=== PATIENT | male | born 1955 | race Caucasian/White ===

== ENCOUNTER → 2020-04-23 08:14 | Outpatient (CLI) | payer MEDICARE, SELFPAY ==
--- NOTE | 2020-04-23 08:28 | EKG12_ITS ---
Test Reason : PRE OP Blood Pressure : / mmHG Vent. Rate : 085 BPM Atrial Rate : 085 BPM P-R Int : 114 ms QRS Dur : 104 ms QT Int : 368 ms P-R-T Axes : 078 017 073 degrees QTc Int : 437 ms Normal sinus rhythm Zkzsc-Hmorbegnr-Hjxze Abnormal ECG Confirmed by JAC VIERA, EDD ([id number]), market editor ROSS HOLLOWAY ([id number]) on 04/27/2020 11:04:39 AM Referred By: Brad Vidal Confirmed By:EDD NATHAN MD
[2020-04-23 10:08] LABS: Hematocrit 47.2 % (40-54); Hemoglobin 15.5 g/dL (13.0-16.5); Mean Corp Hgb Conc 32.8 g/dL (32-36); Mean Corpuscular Hgb 30.9 pg (27.0-32.0); Mean Platelet Vol. 10.1 fl (6.2-12.0); Platelet Count 308 K/mm3 (150-450); RBC Distribution Width CV 13.8 % (11.6-14.6); RBC Distribution Width SD 47.7 fl (35.1-43.9); Red Blood Count 5.02 M/mm3 (4.6-6.2); White Blood Count 6.1 K/mm3 (4.4-11.0)
[2020-04-23 10:16] LABS: Anion Gap 3 (5-15); BUN 19 mg/dL (7-18); BUN/Creat Ratio 16.4 RATIO (10-20); Chloride 106 mmol/L (98-107); Creatinine, Serum 1.16 mg/dL (0.70-1.30); EST Glomerular Filtration Rate 67 mL/min (>60); Est Glom Filt Rate - Afr Amer 81 mL/min (>60); Glucose 106 mg/dL (74-106); Potassium 4.1 mmol/L (3.5-5.1); Sodium Level 139 mmol/L (136-145)
== END ==
PROVIDERS: PCP Internal Medicine; Referring Provider Physician Assistant; Visit Provider Physician Assistant
DX: Z01.818 Encounter for other preprocedural examination (principal); Z01.810 Encounter for preprocedural cardiovascular examination; Z11.59 Encounter for screening for other viral diseases
CPT/HCPCS: 36415; 80048; 85027; 87635; 93005; C9803; U0005; U0003

== ENCOUNTER 2020-05-04 08:38 | Day surgery (SDC) | payer MEDICARE, SELFPAY ==
[2020-05-04] MEDS: Epinephrine (1 mg/ml) 1 MG/ML VIAL (06:27)
[2020-05-04] MEDS: Bupiv/Epi 0.5% Mpf 30 ML Vial (06:28)
[2020-05-04 09:09] VITALS: BP 156/90; PULSE 99; RESP 14; TEMP 36.8; O2SAT 100; BMI 28.3
[2020-05-04] MEDS: Lactated Ringers 1,000 ML 100 ML IV (09:20)
[2020-05-04] MEDS: Cefazolin 2 GM in 0.9% Normal Saline 100 ML IV (09:53)
[2020-05-04 10:45] VITALS: BP 103/71; BP 156/90; PULSE 66; RESP 16; TEMP 36.4; O2SAT 98
--- NOTE | 2020-05-04 10:45 | OP.PCM_ITS ---
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 medial meniscectomy and chondroplasty of the PFJ right knee Estimated Blood Loss: minimal Specimen's Removed: none Type of Anesthesia: general ASA Class: 2 Indications: [ ] Patient has failed conservative measures and at this point has elected to undergo the above procedure. Procedure Description: The patient was greeted in the preoperative area. The [right ] knee was marked with surgical marker. Preoperative antibiotics were administered. The patient was then taken to the operating suite and placed in a supine position on operating room table. After adequate anesthesia was obtained and airway was secured a well-padded tourniquet was placed on patient's affected extremity. Leg was then prepped and draped in usual sterile fashion. Surgical timeout was performed and confirmed with all present and surgery was commenced. Standard anteromedial anterolateral portals were made and a 30? arthroscope was then inserted into the knee. The patellofemoral joint revealed diffuse grade 2 chondromalacia of both the patella and the trochlear groove of the femur. An arthroscopic shaver was used to perform a chondroplasty on the patella and trochlear groove. The cartilage was smoothed down and any delaminate pieces of cartilage were removed with the shaver. Attention was now brought to the medial compartment. There was a multilayered, complex flap tear of the posterior horn of the medial meniscus. The medial portion of the tear was flipped into the notch. A combination of straight and angled basket punches were used to perform a partial medial meniscectomy. An arthroscopy shaver was used to remove the meniscal fragments and to smooth and shape the remaining meniscus to a firm and stable rim. The ACL and PCL were probed and noted to be intact. The lateral compartment was without pathology. At this point all instruments were removed. Arthroscopic portals were closed in a standard fashion. 30 cc of 0.5% Marcaine was then injected into the knee. Well-padded nonadherent dressing was applied and secured with an Von wrap. The patient was taken to the recovery room in stable condition. Type of Anesthesia:: General Anesthesiologist: Yash Calzada - Admit VTE Documentation VTE Present on Admission: No VTE Mechan Device Prophylaxis: SCD's, Thigh High MAXIMINO Hose VTE Pharm Prophylaxis ordered?: No Reason prophylaxis not ordered:: Treatment Not Indicated
[2020-05-04 11:00] VITALS: BP 103/80; BP 156/90; PULSE 66; RESP 16; O2SAT 100
[2020-05-04 11:15] VITALS: BP 132/80; BP 156/90; PULSE 82; RESP 16; TEMP 36.6; O2SAT 100
[2020-05-04 12:53] VITALS: BP 153/89; BP 156/90; PULSE 87; RESP 18; TEMP 36.5; O2SAT 99
== END 2020-05-04 12:54 | disposition home or self-care (01) ==
LOC: SDC 08:38 → AC 08:38
PROVIDERS: PCP Internal Medicine; Referring Provider Orthopaedic Surgery; Visit Provider Orthopaedic Surgery
PROC: (CPT 29870; principal; 2020-05-04 10:00)
DX: S83.231A Complex tear of medial meniscus, current injury, right knee, initial encounter (principal); M23.91 Unspecified internal derangement of right knee; M22.41 Chondromalacia patellae, right knee; M17.11 Unilateral primary osteoarthritis, right knee; X58.XXXA Exposure to other specified factors, initial encounter; Y93.9 Activity, unspecified; Y92.9 Unspecified place or not applicable; Y99.9 Unspecified external cause status; Z20.822 Contact with and (suspected) exposure to COVID-19; E78.00 Pure hypercholesterolemia, unspecified; E07.9 Disorder of thyroid, unspecified; E66.3 Overweight; Z68.28 Body mass index [BMI] 28.0-28.9, adult; Z79.890 Hormone replacement therapy; Z79.899 Other long term (current) drug therapy; Z87.891 Personal history of nicotine dependence
CPT/HCPCS: 29881; 87426; C9803; J7120; J2405

== ENCOUNTER 2020-06-27 06:12 | Emergency (ER) | payer MEDICARE, SELFPAY ==
[2020-06-27 06:13] VITALS: BP 147/99; PULSE 90; RESP 18; TEMP 36.3; O2SAT 97; BMI 27.6
--- NOTE | 2020-06-27 06:22 | CT_ITS ---
STUDY: CT LUMBAR SPINE WITHOUT CONTRAST REASON FOR EXAM: Male, 65 years old. low back pain RADIATION DOSAGE (If Supplied By Facility): CTDIvol = ( 14.99 ) mGy, DLP = ( 454.47 ) mGycm TECHNIQUE: The patient was scanned in a multi detector CT scanner. High resolution transaxial imaging was performed. Images were obtained from T12 to S1. Sagittal and coronal images were reconstructed. Individualized dose optimization techniques were used for this CT. COMPARISON: None FINDINGS: Normal lumbar lordosis. There is no substantial scoliosis. Normal vertebrae of the lumbar spine. L1-2: Normal endplates. Normal disc height and morphology. Normal bilateral facet joints. Normal central canal and bilateral lateral recesses. Normal bilateral intervertebral neural foramina. L2-3: Normal endplates. Normal disc height and morphology. Normal bilateral facet joints. Normal central canal and bilateral lateral recesses. Normal bilateral intervertebral neural foramina. L3-4: Mild bilateral facet hypertrophy and ligament flavum hypertrophy. Mild broad disc protrusion produces mild spinal stenosis and mild bilateral neural foraminal stenosis. L4-5: Mild bilateral facet hypertrophy and ligament flavum hypertrophy. Mild broad disc protrusion produces mild spinal stenosis and mild bilateral neural foraminal stenosis. L5-S1: Mild broad disc protrusion produces mild spinal stenosis and mild bilateral neural foraminal stenosis. Normal visualized paraspinous soft tissue structures. CT/Spine Lumbar without Contrast IMPRESSION: Multilevel degenerative changes, as described above. Electronically Signed: Josué Benitez MD at 7:27 EDT Tel , Service support ,
--- NOTE | 2020-06-27 06:23 | ED.VISSUMM ---
- ER Visit Summary Date of Service: 06/27/20 Chief Complaint: Back pain History of Present Illness: The patient is a 65 M who has had back pain for a week. He tried lifting a steel door and after that started having low back pain. Is worse with movement. The pain radiates down his left leg. He denies any bowel or bladder retention or incontinence. He is on prednisone and tramadol currently. He got these from an urgent care yesterday. He denies fevers or history of back surgeries. However, he does have a history of previous back pain. He came in this morning because he feels like his left thigh is getting weaker. Physical Examination: Vital signs reviewed. HEENT exam unremarkable. Heart is regular rate and rhythm without murmurs. Lungs are clear to auscultation. Abdomen is soft and nontender. His back is tender in the lower lumbar region. Extremities reveal no edema. Skin exam normal. Neurologic exam shows equal strength bilaterally but he does ambulate with a limp on the left side. His left patellar reflex is slightly diminished as compared to the right. Test Results: CT scan of the lumbar spine is pending Emergency Department Course and Treatment: Patient was given morphine for pain control. He will be signed out to the oncoming physician for further evaluation Treatment Plan: [] Disposition: Pending Impression: Lumbar strain This note was generated with [employer] dictation software. It may contain incorrect words, spelling, and punctuation that were not noted in review of the chart prior to signing ED Disposition - Plan for ED Patient: Referrals: Sherif Wang MD [Primary Care Provider] -
[2020-06-27] MEDS: morphine 8 MG/ML Syringe IM (06:26)
--- NOTE | 2020-06-27 08:03 | MRI_ITS ---
STUDY: MRI LUMBAR SPINE WITHOUT CONTRAST REASON FOR EXAM: Male, 65 years old. Acute L3 radiculopathy with neuro deficit TECHNIQUE: Standardized fat and water weighted pulse sequences were obtained in the sagittal and axial planes. COMPARISON: CT earlier today FINDINGS: T12-L1: Normal endplates. Normal disc height, hydration and morphology. Normal bilateral facet joints. Normal central canal and bilateral lateral recesses. Normal bilateral intervertebral neural foramina. Normal lumbar lordosis. There is no substantial scoliosis. Normal conus medullaris that terminates at the T12/L1. L1-2: Mild bilobed disc protrusion produces mild spinal stenosis and mild bilateral neural foraminal stenosis. L2-3: Mild bilobed disc protrusion produces mild spinal stenosis and mild bilateral neural foraminal stenosis. L3-4: Mild bilateral facet hypertrophy and ligament flavum hypertrophy. Mild broad disc protrusion produces mild spinal stenosis and mild bilateral neural foraminal stenosis. L4-5: Mild bilateral facet hypertrophy and ligament flavum hypertrophy. Mild broad disc protrusion produces mild spinal stenosis and mild bilateral neural foraminal stenosis. L5-S1: Mild broad disc protrusion produces mild spinal stenosis and mild bilateral neural foraminal stenosis. Normal visualized sacral ala. Normal visualized paraspinous soft tissue structures. MRI/Spine Lumbar (Routine) IMPRESSION: Multilevel degenerative changes, as described above. Electronically Signed: Josué Benitez MD at 11:30 EDT Tel , Service support ,
[2020-06-27 11:19] VITALS: RESP 18
--- NOTE | 2020-06-27 12:34 | TELEMED_ITS ---
[facility] has confirmed receipt of a request for visit. This document confirms receipt of the order initiating the consult. To find the results of the consultation, please view the patient's reports for the scanned Telemed Consult.
[2020-06-27 12:43] VITALS: BP 109/87; PULSE 103; RESP 18; O2SAT 97
--- NOTE | 2020-06-27 13:14 | ED.VISSUMM ---
- ER Visit Summary Date of Service: 06/27/20 Chief Complaint: [] History of Present Illness: The patient is a 65 M [] Physical Examination: [] Test Results: [] Emergency Department Course and Treatment: [] Treatment Plan: [] Disposition: [] Impression: [] This note was generated with [employer] dictation software. It may contain incorrect words, spelling, and punctuation that were not noted in review of the chart prior to signing ED Disposition - Plan for ED Patient: Disposition: Home or Assisted Living Diagnosis: Lumbosacral radiculopathy at L4 Prescriptions: Naproxen [Naprosyn] 500 mg PO BID #14 tablet Transmission Status: Pending to [id number] Oxycodone HCl/Acetaminophen [Percocet 5/325] 1 tablet PO Q6H PRN PRN 5 Days #20 tablet PRN Reason: Back pain Transmission Status: Sent to [id number] Referrals: Sherif Wang MD [Primary Care Provider] - 5-7 Days Additional Instructions: 1. Continue take prednisone until gone 2. Take Naprosyn 1 tablet twice a day for the next 7 days 3. Take Percocet for severe pain. 4. If you have loss of bowel control, unable to urinate or numbness in your buttocks region return to the emergency department immediately 5. If you develop increased weakness follow-up with your doctor or return to the emergency department
--- NOTE | 2020-06-27 13:18 | ED.DCSUM_ITS ---
- ER Visit Summary Date of Service: 06/27/20 Chief Complaint: [] History of Present Illness: The patient is a 65 M [] Physical Examination: [] Test Results: [] Emergency Department Course and Treatment: [] Treatment Plan: [] Disposition: [] Impression: [] This note was generated with [employer] dictation software. It may contain incorrect words, spelling, and punctuation that were not noted in review of the chart prior to signing ED Disposition - Plan for ED Patient: Disposition: Home or Assisted Living Diagnosis: Lumbosacral radiculopathy at L4 Instructions: ED Back Pain (Acute or Chronic) Prescriptions: Naproxen [Naprosyn] 500 mg PO BID #14 tablet Transmission Status: Received by [id number] Oxycodone HCl/Acetaminophen [Percocet 5/325] 1 tablet PO Q6H PRN PRN 5 Days #20 tab PRN Reason: Back pain Transmission Status: Received by [id number] Referrals: Sherif Wang MD [Primary Care Provider] - 5-7 Days Additional Instructions: 1. Continue take prednisone until gone 2. Take Naprosyn 1 tablet twice a day for the next 7 days 3. Take Percocet for severe pain. 4. If you have loss of bowel control, unable to urinate or numbness in your buttocks region return to the emergency department immediately 5. If you develop increased weakness follow-up with your doctor or return to the emergency department
== END 2020-06-27 13:27 | disposition home or self-care (01) ==
PROVIDERS: Emergency Provider Emergency Medicine; PCP Internal Medicine
DX: M51.16 Intervertebral disc disorders with radiculopathy, lumbar region (principal); M48.061 Spinal stenosis, lumbar region without neurogenic claudication; S39.012A Strain of muscle, fascia and tendon of lower back, initial encounter; X58.XXXA Exposure to other specified factors, initial encounter; Y93.9 Activity, unspecified; Y92.9 Unspecified place or not applicable; Y99.9 Unspecified external cause status; E03.9 Hypothyroidism, unspecified; Z79.899 Other long term (current) drug therapy
CPT/HCPCS: 72131; 72148; 96372; 99282

== ENCOUNTER 2023-02-03 03:06 | Inpatient (IN) | payer MEDICARE, SELFPAY ==
[2023-02-03] VITALS (13 sets, daily range): BP systolic 127–173; BP diastolic 74–145; PULSE 73–94; RESP 15–22; TEMP 36.3–36.6; O2SAT 95–99; BMI 27.3; BMI 26.9
--- NOTE | 2023-02-03 03:18 | EKG12_ITS ---
Test Reason : CP Blood Pressure : / mmHG Vent. Rate : 094 BPM Atrial Rate : 094 BPM P-R Int : 140 ms QRS Dur : 112 ms QT Int : 384 ms P-R-T Axes : 071 -14 107 degrees QTc Int : 480 ms Normal sinus rhythm Pqqgz-Wakirptlu-Qunwm Abnormal ECG Confirmed by JAC VIERA, EDD ([id number]), newspaper editor managing VIRGILIO MCGILL ([id number]) on 02/03/2023 9:38:37 AM Referred By: Yash Skelton Confirmed By:EDD NATHAN MD
--- NOTE | 2023-02-03 03:19 | EDS_ITS ---
HPI History of Present Illness Chief Complaint: Chest Pain Informant: patient and spouse/S.O. Narrative Narrative: Patient presents with complaint of chest pain. Patient is not having any pain now. He went for a walk last evening at about 5 or 5:30 in the evening. He does this almost every day. He normally has no symptoms. He walked about 4 miles. He states he had a discomfort in the middle of his chest the whole time. It is hard for him to describe the exact feeling. It did not radiate. He did not have nausea vomiting diaphoresis lightheadedness or shortness of breath with it. It lasted for the walk and when he got home it lasted for maybe another 10 minutes and then went away when he rested. He felt fine until about an hour ago when he woke up with the same feeling in his chest. This time it sounds like he got a little diaphoretic but he states that is just because he was anxious. He still did not have nausea vomiting lightheadedness or shortness of breath. Again, he is not having symptoms now. His last stress test was likely approxi mately 2014. He has had no recent travel surgery immobilization personal or family history of DVT or PE. He did go to [place] but that was about 4 to 5 months ago. He is a smoker. He has high cholesterol. He states sometimes his blood pressure is high but he is not on meds for it. He does have a brother that had a heart attack at the age of 43. Patient is not diabetic. [facility] Medical History WPW (Kqvmf-Tepxsgjut-Wkrcf syndrome) Home Medications levothyroxine 125 mcg tablet 150 mcg PO DAILY 08/12/14 [History Last Taken 05/04/20 06:30] atorvastatin 10 mg tablet 10 mg PO QHS 05/01/20 [History Last Taken Unknown] Allergy/AdvReac Type Severity Reaction Status Date / Time No Known Allergies Allergy Verified 05/04/20 09:08 Social History Smoking Status: Current every day smoker tobacco type: cigarettes ROS ROS ED ROS Narrative A complete review of systems was performed and is negative except as documented in the history of present illness. Some specific details below. Constitutional: No recent fevers or chills. No malaise. ENT: No difficulty swallowing. No swelling. No pain. No reflux symptoms. No history of GERD. CV: See history of present illness. Respiratory: Denies any pulmonary symptoms with this. GI: No abdominal pain. No nausea vomiting at any time and no diarrhea. No recent blood in stool. : No frequency dysuria or hematuria. Musculoskeletal: No recent trauma. No pains. No swelling. No pain at all in his back at any time. Skin: No rash. He did feel he got a little diaphoretic the second episode but that has resolved. He did not get diaphoretic with the first episode when he was walking. Neuro: No weakness or numbness. No paresthesias. Endocrine: No polyuria or polydipsia. EXAM Physical Exam Narrative Exam Narrative: CONSTITUTIONAL: Patient is nontoxic in appearance. The patient looks comfortable. Work of breathing looks normal. He is not diaphoretic now. HEENT: No notable trauma. Mucous membranes moist. EYES: No conjunctival injection. No pallor noted. NECK:No JVD. CARDIOVASCULAR: Regular rate. Regular rhythm. No notable murmur. No JVD. Rate is normal at about 90 on the monitor. No not seeing ectopy. RESPIRATORY: No respiratory distress. Breathing is unlabored. No wheezes. No rhonchi. No rales. No pain with a deep breath. No chest wall tenderness. GASTROINTESTINAL: Not distended. Bowel sounds are normal. No tenderness. GENITOURINARY: No CVA tenderness. MUSCULOSKELETAL: Atraumatic. No peripheral edema. No cord. No tenderness along the deep venous system. NEUROLOGICAL: Patient is alert and appropriate. No focal deficit noted. SKIN: No noted rashes. No diaphoresis noted at this time. PSYCHIATRIC: Patient actually seems quite calm and relaxed. He is is not toxic in appearance. He states he feels perfectly fine now. Const Vital Signs: 02/03/23 03:06 02/03/23 03:06 02/03/23 03:20 Temperature 97.5 F L Temperature Source Temporal Pulse Rate 94 Respiratory Rate 15 Respiratory Effort Normal Non-Labored Blood Pressure 164/145 H Blood Pressure Mean 151 Pulse Ox 98 98 Oxygen Delivery Method Room Air Room Air 02/03/23 03:23 02/03/23 04:51 Temperature 97.6 F L Temperature Source Pulse Rate 79 Respiratory Rate 16 Respiratory Effort Blood Pressure 173/100 H 135/91 H Blood Pressure Mean 124 105 Pulse Ox 97 Oxygen Delivery Method Heart Score History: Slightly/Non-Suspicious ECG: Nonspecific Repolarization Age: >/= 65 years Risk Factors: >/= 3 Risk Factors or History of CAD Score: 5 MDM MDM MDM Narrative Medical decision making narrative: My independent interpretation of the patient's single view AP chest x-ray shows no infiltrate or pneumothorax. No cardiomegaly. Paravertebral aortic stripe is normal. Final reading is pending. Patient CBC shows no marked abnormalities. Platelets were normal. Patient's electrolytes show minimal elevation of chloride at 109. No other significant abnormalities. Glucose is minimally up at 112. Patient's first troponin is elevated 834. I have checked the patient again. He is still totally asymptomatic. Without treatment his blood pressure has come down to 135/91. He never had tearing or ripping pain severe pain or pain in his back. Final reading of x-ray shows no acute process. I did discuss the case with practice nurse, Dr. Alonzo. We will initiate heparin at this time since he does have some change in his EKG from the past, history of chest pain and elevated troponin. I also discussed the case with hospitalist and patient will be admitted. Lab Data Attestation: I reviewed the patient's lab results. Labs: Laboratory Results - last 24 hr 02/03/23 03:15 WBC 9.2 RBC 5.13 Hgb 15.5 Hct 47.1 MCV 91.8 MCH 30.2 MCHC 32.9 RDW Std Deviation 46.3 H RDW Coeff of Mikayla 13.6 Plt Count 323 MPV 9.9 Immature Gran % (Auto) 0.400 Neut % (Auto) 41.8 L Lymph % (Auto) 43.5 H Rowan % (Auto) 8.3 Eos % (Auto) 4.5 Baso % (Auto) 1.5 H Absolute Neuts (auto) 3.8 Absolute Lymphs (auto) 4.00 Nucleated RBC % 0 Sodium 142 Potassium 3.7 Chloride 109 H Carbon Dioxide 25.0 Anion Gap 8 BUN 16 Creatinine 1.01 Estim Creat Clear Calc 80.26 Est GFR (MDRD) Af Amer 94 Est GFR (MDRD) Non-Af 78 BUN/Creatinine Ratio 15.8 Glucose 112 H Calcium 9.3 Troponin I High Sens 834 H* Radiography Diagnostic Testing: Clinical Impression(s) from Imaging Studies Chest X-Ray 02/03/23 03:22 IMPRESSION: No significant interval change. No radiographic evidence of acute cardiopulmonary disease. Electronically Signed: Shoaib Chambers MD at 4:01 EST , EKG Initial EKG: Comments: My independent interpretation of the patient's EKG does show a normal sinus rhythm with overall rate of 94. No ventricular ectopy. 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 He has had this since he was quite young. He has some secondary ST changes but he looks to have some more ST depression in the lateral leads than he had on his EKG of 23 April 2020. I do not see signs of ST elevation meeting STEMI criteria. Despite the WPW, the computer is reading as AR interval as normal but it does appear somewhat shorter. QRS duration is normal and his QTc is a bit long. He was asymptomatic when this EKG was done. Management Discussion w/another healthcare provider: Hospitalist and Shingles Roofer Discharge Plan Dx/Rx/DC Orders Clinical Impression: Non-ST elevation WI (NSTEMI), History of high cholesterol, History of Cnzns-Tcikowfjm-Geyhf (WPW) syndrome, History of smoking, Acute electroc ardiogram changes, Chest pain, Elevated troponin Disposition Disposition: Acute Care Hospital [facility]
[2023-02-03] MEDS: Aspirin 81 MG TAB.CHEW 324 MG PO (03:22)
--- NOTE | 2023-02-03 03:22 | RAD_ITS ---
EXAM: XR CHEST, 1 VIEW CLINICAL INDICATION: chest pain TECHNIQUE: Frontal view of the chest. COMPARISON: Previous chest radiographs of 08/12/2014. FINDINGS: LUNGS AND PLEURAL SPACES: Unremarkable. No consolidation or edema. No pneumothorax. No effusion. HEART: Unremarkable. Cardiac silhouette not enlarged. Normal pulmonary vasculature. MEDIASTINUM: Thoracic aorta is mildly elongated. No mediastinal widening. Trachea is midline. BONES/JOINTS: No acute osseous abnormality. SOFT TISSUES: Unremarkable. RAD/Chest 1 View (Portable) IMPRESSION: No significant interval change. No radiographic evidence of acute cardiopulmonary disease. Electronically Signed: Shoaib Chambers MD at 4:01 EST ,
[2023-02-03 03:29] LABS: Absolute Neutrophil Count 3.8 X10^3/uL (2.0-7.7); Basophil# 0.14 X10^3/uL; Basophil% 1.5 % (0-1); Eosinophil# 0.41 X10^3/uL; Eosinophils% 4.5 % (0-5); Hematocrit 47.1 % (40-54); Hemoglobin 15.5 g/dL (13.0-16.5); Lymphocyte % 43.5 % (19-41); Mean Corp Hgb Conc 32.9 g/dL (32-36); Mean Corpuscular Hgb 30.2 pg (27.0-32.0); Mean Corpuscular Volume 91.8 fL (80-94); Mean Platelet Vol. 9.9 fl (6.2-12.0); Monocyte# 0.76 X10^3/uL; Monocyte% 8.3 % (0-10); NRBC Flagged by Analyzer 0 % (0-5); Neutrophil # 3.84 X10^3/uL (2.7-7.7); Neutrophil % 41.8 % (47-70); POSITIVE MORPHOLOGY YES; Platelet Count 323 K/mm3 (150-450); RBC Distribution Width CV 13.6 % (11.6-14.6); RBC Distribution Width SD 46.3 fl (35.1-43.9); Red Blood Count 5.13 M/mm3 (4.6-6.2); White Blood Count 9.2 K/mm3 (4.4-11.0)
[2023-02-03 03:50] LABS: Anion Gap 8 (5-15); BUN 16 mg/dL (7-18); BUN/Creat Ratio 15.8 RATIO (10-20); Calcium,Total 9.3 mg/dL (8.5-10.1); Chloride 109 mmol/L (98-107); Creatinine, Serum 1.01 mg/dL (0.70-1.30); EST Glomerular Filtration Rate 78 mL/min (>60); Est Glom Filt Rate - Afr Amer 94 mL/min (>60); Estimated Creatinine Clearance 80.26 ml/min; Glucose 112 mg/dL (74-106); Potassium 3.7 mmol/L (3.5-5.1); Sodium Level 142 mmol/L (136-145); Troponin-I HS (w/2H Reflex) 834 pg/mL (3.0-78.0)
[2023-02-03 04:48] LABS: Differential Indicated SCAN CRITERIA MET
[2023-02-03 05:04] LABS: International Normalized Ratio 0.9; Prothrombin Time (Protime)PT. 12.6 SECONDS (11.7-14.9)
[2023-02-03 05:05] LABS: Partial Thromboplast Time 29.9 Seconds (24.1-36.2)
[2023-02-03] MEDS: Heparin Injection (Vial) 5,000 UNIT/ML VIAL 4000 UNIT IV (05:20)
[2023-02-03] MEDS: HEPARIN/D5w 25,000 UNITS 25,000 UNITS/250 ML IV.SOLN. 10 UNITS CONT INF (05:20)
[2023-02-03 05:22] LABS: Reflex Troponin-HS? (from REC) Y
--- NOTE | 2023-02-03 05:23 | EKG12_ITS ---
Test Reason : CP ADMIT Blood Pressure : / mmHG Vent. Rate : 083 BPM Atrial Rate : 083 BPM P-R Int : 124 ms QRS Dur : 120 ms QT Int : 400 ms P-R-T Axes : 073 -22 112 degrees QTc Int : 470 ms Normal sinus rhythm Ventricular pre-excitation, WPW pattern type A Abnormal ECG When compared with ECG of 03-FEB-2023 03:08, MANUAL COMPARISON REQUIRED, DATA IS UNCONFIRMED Confirmed by JAC VIERA, EDD ([id number]), school photograph editor ROSS HOLLOWAY ([id number]) on 02/03/2023 1:58:35 PM Referred By: Yash Skelton Confirmed By:EDD NATHAN MD
[2023-02-03 05:24] LABS: Reactive Lymphocyte 1+
--- NOTE | 2023-02-03 05:25 | HP.PCM.HOS_ITS ---
HPI - General General Date of Service: 02/03/23 Chief Complaint: chest pain HPI Narrative ROSELINE KINCAID, is a 67 M who presents with chest pain. Began yesterday when he was walking needed. Came back this morning he was bed. It was midsternal and had some mid back pain. No associated diaphoresis nor shortness of breath. Has never experienced anything like this before. In the emergency room, patient had an EKG which showed showed ST depressions in the anterior lateral leads. He does have known Cakwk-Nyfjezlwl-Nivkw. Years. He has previously underwent a stress test several years ago that was normal. [facility] Medical History (Updated 02/03/23 @ 05:[address] Yash Skelton DO) History of high cholesterol History of smoking Hypothyroidism WPW (Kdqtk-Vgkewdcrm-Fbfvk syndrome) Home Medications levothyroxine 125 mcg tablet 150 mcg PO DAILY 08/12/14 [History Last Taken 05/04/20 06:30] atorvastatin 10 mg tablet 10 mg PO QHS 05/01/20 [History Last Taken Unknown] Allergy/AdvReac Type Severity Reaction Status Date / Time No Known Allergies Allergy Verified 05/04/20 09:08 Family History (Updated 02/03/23 @ 05:[address] Yash Skelton DO) Brother CAD (coronary artery disease) Social History Smoking Status: Current every day smoker tobacco type: cigarettes Vital Signs Vital Signs Vital Signs: 02/03/23 03:06 02/03/23 03:06 02/03/23 03:20 Temperature 36.4 C L Temperature Source Temporal Pulse Rate 94 Respiratory Rate 15 Respiratory Effort Normal Non-Labored Blood Pressure 164/145 H Blood Pressure Mean 151 Pulse Ox 98 98 Oxygen Delivery Method Room Air Room Air 02/03/23 03:23 02/03/23 04:51 Temperature 36.4 C L Temperature Source Pulse Rate 79 Respiratory Rate 16 Respiratory Effort Blood Pressure 173/100 H 135/91 H Blood Pressure Mean 124 105 Pulse Ox 97 Oxygen Delivery Method Weight Weight: 96.4 kg Body Mass Index (BMI) 27.3 Physical Exam Narrative - Physical Exam General: Alert, Oriented x3, Cooperative HEENT: Atraumatic, PERRLA, EOMI, Normocephalic Oral: Moist Mucosa, No Gingival or Mucosal Lesions/ Ulcerations Neck: Supple, No JVD, Negative Carotid Bruits Lungs: Clear to auscultation, Normal air movement Cardiovascular: Regular rate, Normal S1, Normal S2, No murmurs Abdomen: Bowel Sounds Present, Soft, Non Tender, Non-Distended, No Hepato-splenomegaly Extremities: No clubbing, No cyanosis, No edema, Capillary Refill Less than 3 Seconds Skin: No rashes, No breakdown Musculoskeletal: No Tenderness to Palpation of Joints or Extremities Neurological: Neuro grossly intact Psych/Mental Status: Normal Affect, Appropriate Results Lab / Micro Data Attestation: I reviewed the patient's lab results. 02/03/23 03:15 02/03/23 03:15 Labs: Laboratory Results - last 24 hr 02/03/23 03:15: WBC 9.2, RBC 5.13, Hgb 15.5, Hct 47.1, MCV 91.8, MCH 30.2, MCHC 32.9, RDW Std Deviation 46.3 H, RDW Coeff of Mikayla 13.6, Plt Count 323, MPV 9.9, Immature Gran % (Auto) 0.400, Neut % (Auto) 41.8 L, Lymph % (Auto) 43.5 H, [place] % (Auto) 8.3, Eos % (Auto) 4.5, Baso % (Auto) 1.5 H, Absolute Neuts (auto) 3.8, Absolute Lymphs (auto) 4.00, Nucleated RBC % 0, Reactive Lymphocytes 1+, PT 12 .6, INR 0.9, APTT 29.9, Sodium 142, Potassium 3.7, Chloride 109 H, Carbon Donaldo xide 25.0, Anion Gap 8, BUN 16, Creatinine 1.01, Estim Creat Clear Calc 80.26, Est GFR (MDRD) Af Amer 94, Est GFR (MDRD) Non-Af 78, BUN/Creatinine Ratio 15.8, Glucose 112 H, Calcium 9.3, Troponin I High Sens 834 H* EKG Initial EKG: Attestation: I personally reviewed and interpreted this EKG as follows: Prior EKG tracings: available for review EKG Rhythm Intrepretation: Sinus Rhythm (Mvbzy-Rumwpqvty-Fhfjr with anterior lateral ST depressions. This is a change from on April 23, 2020.) Imagaing Radiology Impression Chest X-Ray 12/01/23 03:22 IMPRESSION: No significant interval change. No radiographic evidence of acute cardiopulmonary disease. Electronically Signed: Shoaib Chambers MD at 4:01 EST , Assessment & Plan Assessment/Plan (1) Non-ST elevation CT (NSTEMI): PLAN: Patient had exertional chest pain yesterday chest pain at rest this morning. He is currently pain-free at this time. Troponins were elevated at 834. Emergency room physician spoke with Dr. Alonzo, who will see the patient in consultation. Patient was started on heparin drip. Patient received aspirin in the emergency room. Continue with aspirin floor. Check fasting lipid panel. Cycle troponins. Check 2D echocardiogram. Cardiology consultation. Currently n.p.o. anticipation the patient catheterization. PLAN: Plan Chronic conditions * Hypothyroidism: Continue with levothyroxine * Ujyvj-Upikbniln-Plzsg: This is chronic. He has been previously evaluated by cardiology in years past. Caution with verapamil, adenosine, beta-blockers, amiodarone and digoxin. Patient does note that he does get palpitations periodically. * Tobacco abuse: Advised cessation. VTE prophylaxis: Not indicated as patient is anticoagulated. Charges/Coding Visit Charges Inpatient E&M: 85588 Init Hosp L3
--- NOTE | 2023-02-03 05:44 | ECHOCS_ITS ---
Reason For Study: Chest Pain/ NSTEMI Procedure This was a 2D Doppler, Color Flow transthoracic echocardiogram. Contrast injection was performed. Echo done post heart cath. Exam performed portable in ICU/CCU. Left Ventricle Normal LV size. Left ventricular systolic function is normal. The estimated ejection fraction is 60 %. Stage 1 diastolic dysfunction. No regional wall motion abnormalities noted. Right Ventricle Normal RV size. Normal systolic function. Atria Normal left atrium. Normal right atrium. Mitral Valve Mitral valve not well visualized. Tricuspid Valve The tricuspid valve is not well visualized. Aortic Valve The aortic valve is not well visualized. Pulmonic Valve The pulmonic valve is not well visualized. Great Vessels Normal aortic root. The pulmonary artery is normal size. Normal inferior vena cava. Pericardium/Pleural No pericardial effusion. Medication Diluted definity 2ml given slow IV push to enhance endocardial definition. MMode/2D Measurements & Calculations LVIDd: 4.4 cm IVSd: 0.81 cm Ao root diam: 3.5 cm LVIDs: 3.0 cm LVPWd: 0.93 cm LA dimension: 4.2 cm RVDd: 4.1 cm FS: 31.8 % LAV(MOD-bp): 65.2 ml LVAd ap4: 39.3 cm2 SV(MOD-sp4): 80.7 ml LAV(MOD-bp) Indexed: 29.3 ml/m2 LVLd ap4: 9.7 cm LAV(MOD-sp2): 65.4 ml EDV(MOD-sp4): 127.5 ml LAV(MOD-sp4): 53.8 ml EDV(sp4-el): 134.7 ml LVAs ap4: 20.1 cm2 LVLs ap4: 7.2 cm ESV(MOD-sp4): 46.8 ml ESV(sp4-el): 47.9 ml EF(MOD-sp4): 63.3 % EF(sp4-el): 64.5 % SV(sp4-el): 86.8 ml LA A4 area: 17.6 cm2 RA A4 area: 15.4 cm2 TAPSE: 1.3 cm Time Measurements MV dec time: 0.20 sec Doppler Measurements & Calculations MV E max alfonso: 71.7 cm/sec Lat Peak E' Alfonso: 6.3 cm/sec Med Peak E' Alfonso: 8.4 cm/sec MV A max alfonso: 86.5 cm/sec E/E' lat: 11.3 E/E' med: 8.5 MV E/A: 0.83 MV V2 max: 105.1 cm/sec MV P1/2t max alfonso: 91.8 cm/sec Ao V2 max: 121.2 cm/sec MV max P.4 mmHg MV P1/2t: 70.2 msec Ao max P.9 mmHg MV V2 mean: 55.2 cm/sec MV mean P.5 mmHg MV dec slope: 383.2 cm/sec2 MV V2 VTI: 24.8 cm MVA(P1/2t): 3.1 cm2 LV V1 max: 100.2 cm/sec PA V2 max: 73.5 cm/sec LV V1 max P.0 mmHg ECHO/Echo Complete W/ Contrast Interpretation Summary Normal LV size. Left ventricular systolic function is normal. The estimated ejection fraction is 60 %. Stage 1 diastolic dysfunction. Contrast injection was performed. Ordering Physician: Yash Skelton Referring Physician: Sherif Wang M.D. Performed By: Anson Adan RCS
[2023-02-03 05:58] LABS: Troponin-I HS 710 pg/mL (3.0-78.0)
[2023-02-03] MEDS: Levothyroxine 150 MCG Tablet PO (06:10)
[2023-02-03] MEDS: 0.9% Saline Lock 10 ML Syringe IV (06:10)
[2023-02-03] MEDS: Aspirin E.C. 81 MG Tablet PO (06:10)
[2023-02-03] MEDS: 0.9% Normal Saline (1000mL) 1,000 ML 15 ML IV (07:00)
[2023-02-03 07:01] LABS: Cholesterol 146 mg/dL (200); High Density Lipoprotein 42 mg/dL; Triglycerides 66 mg/dL; Very Low Density Lipoprotein 13 mg/dL (5-40)
--- NOTE | 2023-02-03 07:25 | PCM.PN.HOSP ---
Reason for Visit Reason for Visit: Chest pain Subjective Subjective Patient is a 67-year-old white male who presented to the emergency department at [facility] early this morning complaining of chest pain that began the day prior to presentation. He noticed that it started when he was walking. It came back this morning while he was in bed and was described as midsternal with some radiation to his mid back. He had no associated diaphoresis or shortness of breath and had never experienced anything like this previously. Vital signs on presentation showed temperature of 36.4, heart rate was 94, respiratory was 15, blood pressure was 164/145 with a repeat of 135/91 and his pulse ox was 98% on room air. His CBC was unremarkable. Coags were unremarkable. Chemistry panel was unremarkable. His initial troponin was elevated 834 with a repeat of 710. Lipids were obtained and he had a total cholesterol 146/LDL 91/HDL of 42/triglycerides of 66. EKG demonstrated ST depressions in the anterior and lateral leads and the patient does have a known history of Rzvwh-Brghpayvk-Yfqir disorder. He underwent a stress test several years ago that was found to be unremarkable. He is a current everyday smoker. He was admitted to the medical floor for an NSTEMI and the case was discussed with Dr. Alonzo by the emergency department physician. He will see the patient consultation today. Objective Data Objective Data Vital Signs: Vital Signs Temp Pulse Resp BP Pulse Ox O2 Del Method 97.7 F L 85 15 155/89 H 99 Room Air 02/03/23 05:50 02/03/23 05:50 02/03/23 05:50 02/03/23 05:50 02/03/23 05:50 02/03/23 05:58 Oxygen Delivery Method Room Air Weight: 95.254 kg Body Mass Index (BMI) 26.9 Intake & Output: Intake and Output for Last 24 Hours 02/01/23 02/02/23 02/03/23 23:59 23:59 23:59 Intake Total 16.67 / 16.67 Balance 16.67 / 16.67 Lab / Micro Data 02/03/23 03:15 02/03/23 03:15 Labs: Laboratory Results - last 24 hr 02/03/23 03:15: WBC 9.2, RBC 5.13, Hgb 15.5, Hct 47.1, MCV 91.8, MCH 30.2, MCHC 32.9, RDW Std Deviation 46.3 H, RDW Coeff of Mikayla 13.6, Plt Count 323, MPV 9.9, Immature Gran % (Auto) 0.400, Neut % (Auto) 41.8 L, Lymph % (Auto) 43.5 H, [place] % (Auto) 8.3, Eos % (Auto) 4.5, Baso % (Auto) 1.5 H, Absolute Neuts (auto) 3.8, Absolute Lymphs (auto) 4.00, Nucleated RBC % 0, Reactive Lymphocytes 1+, PT 12.6, INR 0.9, APTT 29.9, Sodium 142, Potassium 3.7, Chloride 109 H, Carbon Dioxide 25.0, Anion Gap 8, BUN 16, Creatinine 1.01, Estim Creat Clear Calc 80.26, Est GFR (MDRD) Af Amer 94, Est GFR (MDRD) Non-Af 78, BUN/Creatinine Ratio 15.8, Glucose 112 H, Calcium 9.3, Troponin I High Sens 834 H* 02/03/23 05:30: Troponin I High Sens 710 H*, Triglycerides 66, Cholesterol 146, LDL Cholesterol 91, VLDL Cholesterol 13, HDL Cholesterol 42 Radiography Diagnostic Testing: Radiology Impression Chest X-Ray 02/03/23 03:22 IMPRESSION: No significant interval change. No radiographic evidence of acute cardiopulmonary disease. Electronically Signed: Shoaib Chambers MD at 4:01 EST Reading Location ID and State: [address] [place] [address] Tel , Service support , Assessment & Plan Assessment/Plan (1) Non-ST elevation [place] (NSTEMI): (2) Chest pain: PLAN: Plan NSTEMI type I -Troponin was greater than 100 on presentation however is slowly trended down -2D echocardiogram is pending -N.p.o. for probable cardiac catheterization today -Continue aspirin -Continue heparin drip -Increase atorvastatin from 10 to 80 mg daily for pleiotropic effects and due to subtherapeutic LDL at 91 -Hold metoprolol for now with history of WPW -Cardiology consult pending Hyperlipidemia -Continue atorvastatin but increase dose from 10 mg nightly to 80 mg nightly for pleiotropic effects and due to subtherapeutic LDL Hypothyroidism -Continue home levothyroxine -Check a.m. TSH History of WPW -Patient has had this for years and has followed with cardiology previously -Avoid adenosine, calcium channel blockers, and beta-blockers for now History of tobacco abuse -Patient is a current everyday smoker -May need nicotine replacement therapy -Monitor -Recommend cessation DVT prophylaxis -Patient is on a heparin drip at this time -Start subcu chemoprophylaxis once off heparin drip CODE STATUS -Full code
--- NOTE | 2023-02-03 07:27 | CON.PCM.CA_ITS ---
Assessment & Plan Assessment/Plan (1) Non-ST elevation [place] (NSTEMI): PLAN: He presents with a fairly classic history and non-ST elevation myocardial infarction. My recommendation at this time would be to continue him on aspirin, high intensity statin, and consider him for cardiac catheterization later today. The risk benefits and alternatives have been explained to him he understands and agrees to proceed. I also did explain to him that beta-blockers were relatively contraindicated due to his WPW. Addendum: Cardiac catheterization demonstrated the following: Normal left main coronary artery. Left anterior descending artery with moderate disease noted in the proximal and mid segment and distal diffuse lung disease. Dominant left circumflex artery with mild proximal disease and distal diffuse long high-grade disease. Nondominant right coronary artery with high-grade proximal stenosis. Preserved left ventricular systolic function. Based on the above angiographic findings I would recommend medical therapy with high intensity statin, aspirin, very low-dose beta-lam, Norvasc, and Ranexa. He should be watched overnight. (2) History of Snjef-Jhhqdvpin-Bhkpg (WPW) syndrome: PLAN: He does have a history of WPW and has been having some palpitations. 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 I have suggested to him that we should consider at some point an ablation of the above. We will think about it as an outpatient. I have explained the above to the patient and his . We will obtain an echocardiogram to assess his ventricular function. Thank you for allowing me to participate in the care of your patient. Please don't hesitate to call if any issues arise. HPI Consult Data Date of Consult: 02/03/23 HPI Narrative HPI Narrative: ROSELINE KINCAID, is a 67 M who presents to the emergency room with exertional and now rest chest discomfort. Patient has a strong family history of coronary artery disease and a history of Svavp-Valiapcym-Ofdod syndrome. He had previously been seen by a chemical processor the last time in 2014 has had occasional tachycardic spells but says that he is able to break this with vagal maneuvers. He had been doing fairly well taking his usual walks until a few days ago when he started experiencing chest burning with his walks. Yesterday he went on a 4 mile walk and experience chest discomfort which worsened at 2 AM in the night and so he decided to present to the emergency room. In the emergency room he was noted to have a normal blood pressure and his EKG demonstrated evidence of delta waves. Cardiac troponin enzymes were abnormal he was admitted for further evaluation and management. He does have a brother who had a myocardial infarction at age 45. [facility] Medical History (Updated 02/03/23 @ 05:[address] Yash Skelton DO) History of high cholesterol History of smoking Hypothyroidism WPW (Dlofk-Okdpnhypk-Bchzy syndrome) Home Medications levothyroxine 125 mcg tablet 150 mcg PO DAILY 08/12/14 [History Last Taken 05/04/20 06:30] atorvastatin 10 mg tablet 10 mg PO QHS 05/01/20 [History Last Taken Unknown] Allergy/AdvReac Type Severity Reaction Status Date / Time No Known Allergies Allergy Verified 05/04/20 09:08 Family History (Updated 02/03/23 @ 05:[address] Yash Skelton DO) Brother CAD (coronary artery disease) Social History Smoking Status: Current every day smoker tobacco type: cigars ROS Constitutional Constitutional: Denies fever(s) or weight loss Eyes Eyes: Reports systems reviewed and no addt'l complaints, except as documented ENT HEENT: Reports systems reviewed and no addt'l complaints, except as documented Cardiovascular Cardiovascular: Reports chest pain at rest, chest pain with activity, dyspnea at rest and dyspnea on exertion; Denies edema, palpitations or paroxysmal nocturnal dyspnea Respiratory/Chest Respiratory/Chest: Denies dyspnea on exertion, productive cough, shortness of breath at rest or shortness of breath with exertion Gastrointestinal Gastrointestinal: Denies change in bowel habits, nausea, vomiting or weight changes Genitourinary Genitourinary: Denies difficulty urinating Musculoskeletal Musculoskeletal: Denies joint stiffness or muscle weakness Integumentary Integumentary: Denies lesions Neurologic Neurologic: Denies dizziness or syncope Psychiatric Psychiatric: Denies anxiety Endocrine Endocrinology: Denies excessive sweating or fatigue Hematologic/Lymphatic Hematologic/Lymphatic: Denies anemia Allergic/Immunologic Allergic/Immunologic: Denies seasonal rhinorrhea Physical Exam Const alert, oriented x3 and no apparent distress General Appearance: cooperative HEENT hearing grossly normal bilaterally Head and Scalp: atraumatic Eyes EOMs intact bilaterally Neck General: normal visual inspection Chest inspection of chest normal and palpation of chest normal Resp normal respiratory effort Auscultation: clear to auscultation bilaterally Cardio regular rate, regular rhythm, S1 normal heart sound and S2 normal heart sound Jugular Venous Distention: JVD GI normal to inspection, nondistended, normoactive bowel sounds Extremity normal capillary refill and no pedal edema Peripheral Pulses: Yes pulses 2+ throughout and femoral pulses present Skin no rashes or lesions noted Neuro oriented x3 and CN's II-XII intact bilaterally Psych Appearance: grossly normal and appropriate Risk Stratification Risk Stratification Applicable: Yes Age >/= 65: Yes >/= 3 CAD Risk Factors (HTN, HLD, DM, family hx of CAD, or current smoker): Yes Aspirin Use in the Past 7 Days: No Severe Angina (>/= episodes in 24 hours): Yes EKG ST Changes >/= 0.5mm: No Positive Cardiac Marker: Yes SILVIA Risk Stratification Score: 4 SILVIA % Risk: 20% Risk Objective Data Vital Signs: Vital Signs Temp Pulse Resp BP Pulse Ox O2 Del Method 97.7 F L 85 15 155/89 H 99 Room Air 02/03/23 05:50 02/03/23 05:50 02/03/23 05:50 02/03/23 05:50 02/03/23 05:50 02/03/23 05:58 Oxygen Delivery Method Room Air Weight: 210 lb Body Mass Index (BMI) 26.9 Intake & Output: Intake and Output for Last 24 Hours 02/01/23 02/02/23 02/03/23 23:59 23:59 23:59 Intake Total 16.67 / 16.67 Balance 16.67 / 16.67 Lab / Micro Data 02/03/23 03:15 02/03/23 03:15 Labs: Laboratory Results - last 24 hr 02/03/23 03:15: WBC 9.2, RBC 5.13, Hgb 15.5, Hct 47.1, MCV 91.8, MCH 30.2, MCHC 32.9, RDW Std Deviation 46.3 H, RDW Coeff of Mikayla 13.6, Plt Count 323, MPV 9.9, Immature Gran % (Auto) 0.400, Neut % (Auto) 41.8 L, Lymph % (Auto) 43.5 H, [place] % (Auto) 8.3, Eos % (Auto) 4.5, Baso % (Auto) 1.5 H, Absolute Neuts (auto) 3.8, Absolute Lymphs (auto) 4.00, Nucleated RBC % 0, Reactive Lymphocytes 1+, PT 12.6, INR 0.9, APTT 29.9, Sodium 142, Potassium 3.7, Chloride 109 H, Carbon Dioxide 25.0, Anion Gap 8, BUN 16, Creatinine 1.01, Estim Creat Clear Calc 80.26, Est GFR (MDRD) Af Amer 94, Est GFR (MDRD) Non-Af 78, BUN/Creatinine Ratio 15.8, Glucose 112 H, Calcium 9.3, Troponin I High Sens 834 H* 02/03/23 05:30: Troponin I High Sens 710 H*, Triglycerides 66, Cholesterol 146, LDL Cholesterol 91, VLDL Cholesterol 13, HDL Cholesterol 42 Cardiology Labs/Tests 02/03/23 03:15: WBC 9.2, RBC 5.13, Hgb 15.5, Hct 47.1, MCV 91.8, MCH 30.2, MCHC 32.9, Plt Count 323, MPV 9.9, Immature Gran % (Auto) 0.400, Neut % (Auto) 41.8 L , Lymph % (Auto) 43.5 H, [place] % (Auto) 8.3, Eos % (Auto) 4.5, Baso % (Auto) 1.5 H, Absolute Neuts (auto) 3.8, Nucleated RBC % 0, PT 12.6, INR 0.9, APTT 29.9, Sodium 142, Potassium 3.7, Chloride 109 H, Carbon Dioxide 25.0, Anion Gap 8, BUN 16, Creatinine 1.01, Est GFR (MDRD) Af Amer 94, Est GFR (MDRD) Non-Af 78, BUN/Creatinine Ratio 15.8, Glucose 112 H, Calcium 9.3 02/03/23 05:30: Triglycerides 66, Cholesterol 146, LDL Cholesterol 91, VLDL Cholesterol 13, HDL Cholesterol 42 Rhythm: EKG: ECHO: Stress Test: Cardiac Cath: PCI: CT Surgery: Holter monitor: EPS: PPM: CXR: Chest CT Scan: Radiography Diagnostic Testing: Radiology Impression Chest X-Ray 02/03/23 03:22 IMPRESSION: No significant interval change. No radiographic evidence of acute cardiopulmonary disease. Electronically Signed: Shoaib Chambers MD at 4:01 EST ,
--- NOTE | 2023-02-03 09:27 | CL.D_ITS ---
Patient Name: ROSELINE KINCAID Study Date: 02/03/2023 Performing: Yusef Alonzo MD Ht: 74 inches 187.96 cm : 1955 Wt: 210.3 lbs 95.25 kg Age: 67 Gender: male BSA: 2.22 PROCEDURE(S) PERFORMED [id number]-([id number])LHC/COR/LV CLINICAL PROFILE AND INDICATIONS Indications: Suspected CAD Heart Failure: None Stress/Imaging Stress/Image Study Performed: No CAD Presentations: Non-STEMI. Symptom onset Date/Time: 02/03/23 Time Not Available CONCLUSIONS Triple-vessel disease with distal disease noted in the LAD and dominant circumflex artery and a nondominant right coronary artery. RECOMMENDATIONS Medical therapy DESCRIPTION OF PROCEDURE The patient arrived to the procedure lab. The risks and benefits of the procedure as well as a full description of our services here and current unavailability of surgical backup were fully explained to the patient and/or their significant other prior to the catheterization. The Timeout was completed, verifying the correct patient and procedure. The patient's procedural site was prepped and draped in the usual fashion. Local anesthetic was given subcutaneously to right radial region with Lidocaine 2%. Using a modified Seldinger technique, arterial access was obtained via the right radial artery, a 6Fr sheath was inserted. Left Coronary Artery selective angiography was performed in multiple views using a 5 Fr. 4.0 Blaine catheter. Right Coronary Artery selective angiography was then performed in multiple views using a 5 Fr. 4.0 Blaine catheter. Left Ventriculography was performed in ACEVEDO projection using a 5 Fr. Pigtail catheter. LV to AO pullback pressures were then recorded.The arterial sheath was pulled and a TR Band was applied for hemostasis w/ 10ml air CORONARY ANGIOGRAPHY DOMINANCE: Left Dominant LEFT HEART ASSESSMENT Left Ventricular Ejection Fraction: by LV Gram 60 % Normal LV wall motion Normal Left Ventricular systolic function LEFT MAIN: Angiographically normal LEFT ANTERIOR DESCENDING ARTERY: Moderate calcification, There is moderate disease noted in the proximal and mid segment and distally an area of high-grade long 75% stenosis present. The ostial diagonal vessels have 50 to 60% stenosis. CIRCUMFLEX ARTERY: Dominant left circumflex artery with mild diffuse disease and distal severe disease noted in the posterolateral and posterior descending artery branches. RIGHT CORONARY ARTERY: Nondominant vessel with high-grade 90% stenosis noted in the midsegment. COMPLICATIONS No Complications PROCEDURE MEDICATIONS Versed 1 mg IV Fentanyl 50 mcg IV Oxygen: 2 L/min via nasal cannula Heparin given IA 02/03/2023 08:28:45 Verapamil 2.5mg, Ntg 100mcgs, 3000 units of Heparin given IA 02/03/2023 08:28:45 SUMMARY OF HEMODYNAMIC DATA Time AIR REST ECG 08:21:28 AO 129/82 (104) SA 08:32:38 LV 122/1, 4 08:40:59 LV 121/5, 9 08:41:05 LV 124/2, 12 08:41:41 LV 131/5, 8 08:41:47 LVp 132/6, 8 08:41:51 AOp 136/69 (101) 08:41:56 Signed By Yusef Alonzo MD On 02/03/2023 09:26:49 Yusef Alonzo MD
--- NOTE | 2023-02-03 10:30 | CASEMGMT ---
RN DUSTY Face to Face with patient for initial transition planning/care coordination assessment. RN CM introduced self and role at [facility]. Patient lying in bed, alert and oriented, at bedside. Patient willing to participate in assessment and is able to answer all questions appropriately. Care providers, pharmacy, and demographics verified. Patient wishes to discharge home, denies need for home health at this time. Patient states he has no further needs or concerns at this time. CM to follow for discharge planning needs that may arise. PCP: Felipe Specialists: none [facility]erred [facility] Prescription Benefit: yes Living Will/HPOA: yes, Armida Barrios LNOK: Living Arrangements: Patient lives with in a 2 story home. Patient is independent and able to ambulate stairs. Transportation: self, DME/HHC: Patient denies DME in the home. No previous HHC or SNF Disposition Plan: Patient to discharge home with family support and follow-up plans in place. Kristen CURRANN, RN, CM
[2023-02-03] MEDS: amLODIPine 5 MG Tablet PO (10:42)
[2023-02-03] MEDS: Metoprolol(XL)Succ 25 MG Tablet PO (10:42)
[2023-02-03 12:37] LABS: Troponin-I HS 340 pg/mL (3.0-78.0)
[2023-02-03] MEDS: Ranolazine 500 MG Tablet PO ×2 (12:40→21:25)
[2023-02-03] MEDS: Atorvastatin Calcium 80 MG Tablet PO (21:25)
[2023-02-04 02:30] VITALS: BP 122/85; PULSE 73; RESP 18; TEMP 36.3; O2SAT 96
[2023-02-04 04:16] LABS: Anion Gap 5 (5-15); BUN 16 mg/dL (7-18); BUN/Creat Ratio 17.1 RATIO (10-20); Calcium,Total 8.9 mg/dL (8.5-10.1); Chloride 108 mmol/L (98-107); Creatinine, Serum 0.94 mg/dL (0.70-1.30); EST Glomerular Filtration Rate 85 mL/min (>60); Est Glom Filt Rate - Afr Amer 103 mL/min (>60); Estimated Creatinine Clearance 86.23 ml/min; Glucose 104 mg/dL (74-106); Potassium 3.8 mmol/L (3.5-5.1); Sodium Level 139 mmol/L (136-145)
[2023-02-04 04:17] LABS: Absolute Lymphocyte Count 2.97 X10^3/uL (0.83-4.51); Basophil# 0.12 X10^3/uL; Basophil% 1.3 % (0-1); Eosinophil# 0.32 X10^3/uL; Eosinophils% 3.5 % (0-5); Hematocrit 44.6 % (40-54); Hemoglobin 14.9 g/dL (13.0-16.5); Lymphocyte # 2.97 X10^3/ul (0.83-4.51); Lymphocyte % 32.5 % (19-41); Mean Corp Hgb Conc 33.4 g/dL (32-36); Mean Corpuscular Hgb 31.1 pg (27.0-32.0); Mean Corpuscular Volume 93.1 fL (80-94); Mean Platelet Vol. 10.1 fl (6.2-12.0); Monocyte# 0.68 X10^3/uL; Monocyte% 7.4 % (0-10); NRBC Flagged by Analyzer 0 % (0-5); Neutrophil # 5.01 X10^3/uL (2.7-7.7); Platelet Count 286 K/mm3 (150-450); RBC Distribution Width CV 13.8 % (11.6-14.6); RBC Distribution Width SD 47.3 fl (35.1-43.9); Red Blood Count 4.79 M/mm3 (4.6-6.2); White Blood Count 9.1 K/mm3 (4.4-11.0)
[2023-02-04] MEDS: Levothyroxine 150 MCG Tablet PO (06:44)
[2023-02-04 07:41] VITALS: O2SAT 93
--- NOTE | 2023-02-04 09:12 | DS.PCM_ITS ---
Providers Date of Admission: 02/03/23 Date of Discharge: 02/04/23 Primary Care Physician: Dr. Sherif Wang MD Consultations 02/03/23 05:44 Consult: Cardiology Routine Consulting Provider: Yusef Alonzo Reason for Consult: Chest Pain EMERGENT Consult: No MD Notified: Yes Date Notified: 02/03/23 Time Notified: 05:21 Method of Notification: ED Physician Initiated Reason For Visit: NSTEMI Diagnosis Discharge Diagnosis (1) Non-ST elevation OK (NSTEMI): Status: Acute Code(s): I21.4 - Non-ST elevation (NSTEMI) myocardial infarction (2) Chest pain: Status: Acute Code(s): R07.9 - Chest pain, unspecified Medications at Discharge Home Medications levothyroxine 125 mcg tablet 150 mcg PO DAILY 08/12/14 amlodipine 5 mg tablet 5 mg PO DAILY #30 tabs 02/04/23 aspirin 81 mg tablet,delayed release 81 mg PO BREAKFAST #0 tabs 02/04/23 atorvastatin 80 mg tablet 80 mg PO QHS #30 tabs 02/04/23 metoprolol succinate 25 mg tablet,extended release 24 hr 25 mg PO DAILY #30 tabs 02/04/23 ranolazine 500 mg tablet,extended release,12 hr 500 mg PO BID #30 tabs 02/04/23 Hospital Course Operations None Procedures 2-D Echocardiogram, Cardiac catheterization, EKG and - (Chest x-ray) Summary of Care Provided Minutes Spent on Discharge: 37 Hospital Course: Mr. Barrios is a 67-year-old white male who presents emergency department at [facility] early on the morning of 02/03/2023 complaining of chest pain that began earlier that day. He noticed it initially when he was walking and then it returned early in the morning of admission while he was at rest. He described as midsternal with some radiation to his mid back. He had no associated diaphoresis, shortness of breath and had never experienced anything like this previously. Vital signs on presentation showed temperature of 36.4, heart rate was 94, respiratory was 15, blood pressure was 164/145 with a repeat of 135/91 and his pulse ox was 98% on room air. His CBC was unremarkable. Coags were unremarkable. Chemistry panel was unremarkable. His initial troponin was elevated 834 with a repeat of 710. Lipids were obtained and he had a total cholesterol 146/LDL 91/HDL of 42/triglycerides of 66. EKG demonstrated ST depressions in the anterior and lateral leads and the patient does have a known history of Yanft-Fivshmdcu-Ywone disorder. He underwent a stress test several years ago that was found to be unremarkable. He is a current everyday smoker. He was admitted to the medical floor for an NSTEMI and the case was discussed with Dr. Alonzo by the emergency department physician. He was admitted to the telemetry floor and started on heparin drip, aspirin, high intensity dose statin. Beta-kaitlin was avoided due to history of Dyzyx-Pvddrfzcc-Hwsym disorder at the time of admission. He was seen by cardiology and taken to the Cardiac [facility] Nursing [facility] on 02/03/2023 and found to have Triple-vessel disease with distal disease noted in the LAD and dominant circumflex artery and nondominant right coronary artery. Medical therapy was recommended and he was started on low-dose beta-kaitlin which she tolerated well on telemetry 24 hours post initiation, high intensity statin, aspirin, Ranexa and started on low-dose amlodipine at 5 mg daily. We did obtain an echocardiogram which showed an EF of 60%, stage I diastolic dysfunction but was otherwise unremarkable. He had no events 24 hours after cardiac catheterization and was stable to discharge home. We did instruct him to not do any heavy exercise until he follows up with cardiology and cardiac rehab is scheduled. We have asked him to call on Monday to set up appointment with outpatient cardiology to be seen within the next 2 to 4 weeks and of asked him to follow-up with his primary care physician within the next 2 weeks. Patient was discharged home in stable condition on 02/04/2023. Discharge diagnoses: NSTEMI type I Hyperlipidemia Hypothyroidism History of Nik Parkinson White syndrome History of tobacco abuse Physical Exam Const alert, oriented x3, no apparent distress, average body habitus, no limitations, healthy appearing and well nourished Constitutional Narrative: Very pleasant, upper middle-aged, white male, sitting up in bed watching television, anxious to go home, appears well, nontoxic General Appearance: cooperative, comfortable, well kempt and well developed Exam Limitations: no limitations HEENT normocephalic, head/scalp atraumatic, hearing grossly normal bilaterally and moist oral mucous membranes HEENT Narrative: Mallampati 2, no thrush Eyes PERRL, EOMs intact bilaterally and conjunctivae normal Eyes Narrative: No scleral icterus Neck no lymphadenopathy and supple Neck Narrative: Trachea midline Resp normal respiratory effort, no retractions, no use of accessory muscles and clear to auscultation bilaterally Resp Narrative: Diminished diffusely but clear Auscultation: Negative for rales, rhonchi or wheezes Cardio regular rate, regular rhythm, S1 normal heart sound, S2 normal heart sound, no murmurs, no rub, no gallops and no clicks GI normal to inspection, nondistended, normoactive bowel sounds, soft to palpation and non-tender Extremity no clubbing, cyanosis or edema Extremity Narrative: Pedal pulses are 2+, radial pulses are 2+, right radial artery appears to be healing well Skin no rashes or lesions noted, no wounds, skin turgor normal and no jaundice Neuro oriented x3, CN's II-XII intact bilaterally, moves all extremities and no focal motor deficits Speech: speech normal Psych affect normal Psych Narrative: Very pleasant, interacts appropriately Weight / BMI Weight Weight: 95.254 kg Body Mass Index (BMI) 26.9 ABG / Lab / Microbiology Data 02/04/23 03:41 02/04/23 03:41 Laboratory: Laboratory Results - last 24 hr 02/03/23 11:40: Troponin I High Sens 340 H* 02/04/23 03:41: WBC 9.1, RBC 4.79, Hgb 14.9, Hct 44.6, MCV 93.1, MCH 31.1, MCHC 33.4, RDW Std Deviation 47.3 H, RDW Coeff of Mikayla 13.8, Plt Count 286, MPV 10.1, Immature Gran % (Auto) 0.300, Neut % (Auto) 55.0, Lymph % (Auto) 32.5, [place] % (Auto) 7.4, Eos % (Auto) 3.5, Baso % (Auto) 1.3 H, Absolute Neuts (auto) 5.0, Absolute Lymphs (auto) 2.97, Nucleated RBC % 0, Sodium 139, Potassium 3.8, Chlo ride 108 H, Carbon Dioxide 26.0, Anion Gap 5, BUN 16, Creatinine 0.94, Estim Creat Clear Calc 86.23, Est GFR (MDRD) Af Amer 103, Est GFR (MDRD) Non-Af 85, BUN/Creatinine Ratio 17.1, Glucose 104, Calcium 8.9 Radiography Diagnostic Testing: Radiology Impression Echocardiogram 02/03/23 05:44 Interpretation Summary Normal LV size. Left ventricular systolic function is normal. The estimated ejection fraction is 60 %. Stage 1 diastolic dysfunction. Contrast injection was performed. Ordering Physician: Yash Skelton Referring Physician: Sherif Wang M.D. Performed By: Anson Adan RCS D/C Instructions Discharge Diet: Low fat / Low cholesterol Discharge Activity: Return to Normal Activity (Avoid exercise aggressively for the time being until you follow-up with cardiology and cardiac rehab) Return to work on: 02/06/23 Meaningful Use Info Meaningful Use Diagnoses (Choose all that apply): AMI AMI/Post PCI/Angioplasty Aspirin given w/in 24hrs of arrival?: Yes ASA at discharge?: Yes Statins at discharge?: Yes Von/ARB at discharge?: No Reason Von/ARB not ordered:: Not indicated Beta Kaitlin at discharge?: Yes Done w/ Acute OK measure.: Yes Discharge Plan Admission Admit Date/Time: 02/03/23 05:14 Primary Reason for Your Visit: Chest pain Attending Provider: Jackelyn Vargas Primary Care Provider: Sherif Wang Consulting Providers: Yusef Alonzo; Yash Skelton Instructions Additional Instructions / Restrictions: 1. Avoid any heavy exercise for the time being until you follow-up with cardiology 2. Avoid lifting over 10 pounds with your right hand for the next 3 to 5 days 3. You will be called by cardiac rehab to set up an appointment for monitored exercise program as an outpatient Discharge Orders/Prescriptions Prescriptions: New atorvastatin 80 mg Tablet 80 mg PO QHS Qty: 30 2RF amlodipine 5 mg Tablet 5 mg PO DAILY Qty: 30 2RF aspirin 81 mg Tablet,Delayed Release (Dr/Ec) 81 mg PO BREAKFAST Qty: 0 0RF metoprolol succinate 25 mg Tablet Extended Release 24 Hr 25 mg PO DAILY Qty: 30 2RF ranolazine 500 mg Tablet Extended Release 12 Hr 500 mg PO BID Qty: 30 2RF Continued levothyroxine 125 MCG tablet 150 mcg PO DAILY Discontinued atorvastatin 10 MG tablet 10 mg PO QHS Referrals / Follow Up: Yusef Alonzo MD [Med Staff - Active Staff] - See Referral Note (Monday to set up an appointment to be seen in the next 2 to 4 weeks) Sherif Wang MD [Primary Care Provider] - Within 2 Weeks Disposition Disposition (needs filled in before D/C Order can be placed): Home, Self Care Charges/Coding Visit Charges Inpatient E&M: 46836 Disch Hosp >30min
[2023-02-04 09:19] VITALS: BP 130/83; PULSE 72; RESP 17; TEMP 36.8; O2SAT 96
[2023-02-04] MEDS: Aspirin E.C. 81 MG Tablet PO (09:33)
[2023-02-04] MEDS: Ranolazine 500 MG Tablet PO (09:34)
[2023-02-04] MEDS: amLODIPine 5 MG Tablet PO (09:34)
[2023-02-04 09:35] VITALS: BP 130/73; PULSE 73
[2023-02-04] MEDS: Metoprolol(XL)Succ 25 MG Tablet PO (09:35)
== END 2023-02-04 10:30 | disposition home or self-care (01) | DRG 282 ==
LOC: ED 05:04 → ICU 05:33
PROVIDERS: Emergency Provider Emergency Medicine; PCP Internal Medicine; Referring Provider Internal Medicine; Visit Provider Internal Medicine
DX: I21.4 Non-ST elevation (NSTEMI) myocardial infarction (principal); E03.9 Hypothyroidism, unspecified; I25.10 Atherosclerotic heart disease of native coronary artery without angina pectoris; E78.00 Pure hypercholesterolemia, unspecified; I45.6 Pre-excitation syndrome; F17.210 Nicotine dependence, cigarettes, uncomplicated; F17.290 Nicotine dependence, other tobacco product, uncomplicated; Z79.890 Hormone replacement therapy; Z79.899 Other long term (current) drug therapy
CPT/HCPCS: 71045; 80048; 80061; 84484; 85025; 85610; 85730; 93005; 93306; 93458; 99152; 99153; 99285; J7030; Q9957; Q9967; A4216; C1769; C1894; C8929

== ENCOUNTER → 2023-02-20 | Outpatient (CLI) | payer MEDICARE, SELFPAY ==
--- NOTE | 2023-02-20 08:04 | CR.HP_ITS ---
CR - History & Physical General Arrival date:: 02/20/23 Arrival time:: 08:04 Date of Referral:: 02/06/23 Date of CR Evaluation:: 02/20/23 Referring Physician: Dr. Yusef Alonzo Primary Diagnosis: OR-NONSTEMI<12months History of Present Cardiac Event Onset Date Acute Myocardial Infarction within 12 months:: Yes Medications Ambulatory Orders Medication Instructions Recorded levothyroxine 125 mcg tablet 150 mcg PO DAILY 08/12/14 amlodipine 5 mg tablet 5 mg PO DAILY #30 tabs 02/04/23 aspirin 81 mg tablet,delayed 81 mg PO BREAKFAST #0 tabs 02/04/23 release atorvastatin 80 mg tablet 80 mg PO QHS #30 tabs 02/04/23 metoprolol succinate 25 mg 25 mg PO DAILY #30 tabs 02/04/23 tablet,extended release 24 hr ranolazine 500 mg tablet,extended 500 mg PO BID #30 tabs 02/04/23 release,12 hr Allergies Allergies No Known Allergies Allergy (Verified 05/04/20 09:08) Sleep Disorder Evaluation Hx of Sleep Apnea: No Do you snore loudly (louder than talking or can be heard through closed doors)?: No Do you often feel tired/ fatigued/ sleepy during daytime?: No Has anyone observed you stop breathing during sleep?: No History of Hypertension (for STOP score): No STOP Results: Negative Advanced Directives Advanced Directives Power of Electrical Automation Engineer: Yes Living Will: Yes Advance Directives Information Provided: No Advance Directives on File: Yes DNR Order?:: No Past Medical History Covid-19 Screening Physicial Symptoms Other Clinical Concerns Exposure Risk Pertinent Comorbidities Has a serious heart condition:: Yes Past Medical Illness Past Medical History (Updated 02/12/23 @ 00:02 by Background Anushka) History of high cholesterol Z86.39 History of smoking Z87.891 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) Hobbies, Recreation, Social Activities Hobbies: Woodworking and Other (fishing, painting) Recreational Activities: I am able to engage in all my recreational activities Social Environment Status Marital Status: Current Living Arrangements Living Environment:: Spouse Children How many children do you have?: 3 Do any of your children live nearby?: Yes Safety Do you feel safe in your surroundings?: Yes Assistance Do you need any assistance at home?: no Review of Systems Review of Systems Hints Review of Present Symptoms: Reports Heart Arrhythmia/Irregularities, Appetite - Normal, Appetite - Special Diet and Sleep - Normal; Denies Shortness of Breath at Rest, Shortness of Breath with Exertion, PVD, Operative Discomfort, Angina, Wound Healing, Dizziness/Lightheadedness, Fatigue or Sexual Changes Pain Is Patient Pain Free?: Yes Risk Factor Assessment Vital Signs Pulse Ox: 99 Blood Pressure: 126/78 Pulse Pulse Rate: 82 Pulse Rhythm: Regular Hypertension How long have you been treated?: less than a month Blood Pressure Sitting - Left Arm: 126/78 Obesity Height: 6 ft 2 in Weight:: 201 lb Weight in Pounds: 201.0 lbs Weight Source: Stated by Patient Body Mass Index (BMI): 25.8 Physical Inactivity Physical Inactivity: Reg Exercise 30 min/day For Smoking Smoking Risk Guidelines For Dyslipidemia Dyslipidemia Risk Guidelines For Diabetes Mellitus Diabetes Risk Guidelines For Obesity/Overweight Obesity/Overweight Risk Guidelines For Hypertension Hypertension Risk Guidelines For Sedentary Lifestyle Sedentary Lifestyle Risk Guidelines For Depression Depression Risk Guidelines Family History Family History (Updated 02/03/23 @ 05:[address] Yash Skelton, DO) Brother CAD (coronary artery disease) Motivation Motivation to Participate On a scale of 1 to 10, how prepared are you to commit to attending program?: 10 What do you see as barriers to successfully being able to complete the program?: no What do you see as the benefits of succesfully completing the program? In other words, what do you hope to get out of participating in the program?: confidence to exercise at home Are there issues you are dealing with that will interfere with completing the program?: no Do you have a spouse or signficant other, family or friends who will help support you to complete the program?: yes
--- NOTE | 2023-02-20 08:07 | CR.ITP_ITS ---
Diagnosis General Information Admitting Diagnosis: ND-NONSTEMI<12months Personal Learning Style:: Audio/Visual Stage of change r/t lifestyle modifications:: Contemplation Gave educational material for:: Treating Heart Disease, How The Heart Works, What it means to have Heart Disease, How Coronary Artery Disease is Diagnosed, Heart Procedures, What Heart Medications Do, Risk Factors & Modifications, Living an Active Life, Nutrition, Emotions & Heart Disease, Stress Management & Relaxation and Sleep Disorders & Heart Disease Education/Goals Cardiac Rehabilitation Goals Personal Goals: Initial Assessment: Participate in home exercise program, Get back to work, or to resume activities faster, Improve knowledge of cardiac disease, Improve muscle strength and endurance, Improve diet and eating habits (eat healthier) and Control risk factors (learn risk factor modification) Scale for measuring improvement of personal goals Diagnosis & Disease Process Outcomes/Goals: Pt IDs own risk factors & lifestyle modifications by Session 10, Verbalizes symptoms of angina & response by session 3., Pt independently manages and Other Additional Outcomes/Goals: Plan/Interventions: Assist Pt to ID & engage in lifestyle modification to reduce CVD risk, Instruct on individual risk factors, Review symptoms of angina & emergency actions, Review secondary diagnosis & identify educational needs. and Other see comment 30 day Reassessments:: Not Met 30 day Reassessments:: Not Met 30 day Reassessments:: Not Met 30 day Reassessments:: Not Met Final Reassessments:: Not Met Safety Referral to Physical Therapy: No Referral to [facility] Case Management: No Fall Risk Assessed:: Yes Assistive Devices:: None Exercise - Initial Assessment Visit Date of Eval: 02/20/23 (initial eval ) Mets: Pre-: >3 METS for 30 minutes by discharge, >5 METS for 30 minutes by discharge, >7 METS for 30 minutes by discharge and Unable to meet goal due to: (see comment below) Physician Prescribed Exercise Modalities: Treadmill, Rower, Airdyne, NuStep, SciFit and Lateral [place] Frequency: 2x/week for 18 weeks [36 sessions] and 3x/week for 12 weeks [36 sessions] Intensity: 60-80% of age predicted maximum heart rate reserve Duration: 30 - 45 minutes Current METSs:: 3 Target Heart Rate:: 90-106 EKG Type: NSR simms parkinson white syndrome Outcomes & Goals Goals:: Verbalizes understanding of THR, RPE & goal METS by session 6, Documents in home exercise log/reports 30 min aerobic 5 day/wk by DC, Demonstrates accurate pulse taking by DC and Other additional outcome/goals: see below Intervention & Plan Exercise Program Goals: Instruct on personal THR & RPE, Instruct on MET level & personal MET goal, Show patient to take own pulse /validate performance until accurate, Instruct on home exercise and Other additional plan/int Physical Activity Home Exercise Physical Activity - Home Exercise: Safe Exercise, Warm-up, Self-monitoring, Cool-Down, Home Exercise > 30 min Daily and Sitting Time <3 hours/daily Outcomes & Goals Outcomes/Goals: Demonstrates correct Warm-up/exercise Cool-Down (S3) if = 2.5 METs, Verbalizes symptoms of exercise intolerance by Session 3 (S3), Demonstrate safe equipment use (S3) & follows exercise prescrition (6) and Other: See below Intervention & Plan Plan/Intervention: Instruct warm-up & cool-down if exercising at > 2 METs, Instruct on symptoms of exercise intolerance & actions to take, Instruct & monitor on saf, Assess intial functional capacity & safety risk and Other See below Nutrition - Initial Assessment Program Goals Nutrition Program Goals Patient has diagnosis of Hyperlipidemia (ICD E78)?: No Visit Date of Eval: 02/20/23 (initial eval ) Cholesterol/Lipids (Other Core Measures) Determine presence & major risk factors that modify LDL goal: Cigarette smoking, Hypertension or hypertensive medication, Low HDL cholesterol <40 mg/dL*, Family history of premature CHD in Male < 55 years: female <65 yearsFa and Age men > 45 years; women >/= 55 years Outcomes/Goals: Pt IDs own risk factors & lifestyle modifications by Session 10, Verbalizes symptoms of angina & response by session 3., Pt independently manages and Other Additional Outcomes/Goals: Intervention/Plan: Advocate for lipid panel cholesterol medication if applicable, Instruct on personal lipid levels & lipid goals/NCEP guidelines, Instruct on cholesterol and Other additional plan/int Referral to dietitian:: No Diabetes (Other Core Measures) Diabetes Type: Not Applicable Weight Mgt (Other Care) Height: 6 ft 2 in Weight:: 201 lb BMI: 25.8 Diagnosis Overweight/Obesity BMI> 30% ICD-10 E66: No Diagnosis High BMI/Morbid Obesity BMI> 35% ICD-10 Z68: No Outcomes/Goals: Pt sets, maintains & shows weight loss goal & trend during rehab and Other additional outcomes/goals Intervention/Plan: Instruct on ideal BMI & set weight loss goal w/patient, Assist pt to ID & incorporate diet changes for weight loss by S9, Refer to Structured Weight Loss program as appropriate, Encourage goal of using 250- 300dcal per session for weight loss and Other additional plan/interventions Healthy Eating Habits Will attend diet classes:: Yes Outcomes/Goals:: Consume diet rich in vegs,fruits,whole grain/high fiber,fish,lean meat, Limit sat/trans fats,cholesterol & added salts & sugars and Other additional outcome/goals: Intervention/Plan:: Assess current eating habits and Other Additional plan/interventions Education Gave educational materials for:: Signs & symptoms of hypoglycemia, Signs & symptoms of hyperglycemia, Relate diabetes to coronary artery disease and Healthy eating Core - Initial Assessment Visit Date of Eval: 02/20/23 (initial eval ) Medication Compliance Preventative Medication(s):: Aspirin, Statin/lipid and Beta lam H/O mental health issues: depression, anxiety, or addiction?: No Doesn?t believe in the benefits of treatment?: No Believes medications are unnecessary or harmful?: No Has a concern about medication side effects?: No Expresses concern over the cost of medications?: No Outcomes/Goals: Verbalizes medications,desired effect & common side effects @ DC, Pt self-reports following medication regimen, Keeps card in wallet w/medications listed by DC and Other additional outcome/goals: Interventions/plans: Instruct on medication effects & side effects, Review medication list w/patient every two weeks, Instruct importance of taking meds as ordered & assist problem solving and Other additional Tobacco Use Tobacco Use: Cigars How long ago did you quit using tobacco products?: Less than 6 months ago Do you use smokeless tobacco?: No Outcomes/Goals: Smoking cessation achieved or maintained by discharge, Identify aids/strategies for achieving smoking cessation by session 6 and Other additional outcome/goals Interventions/plan: Instruct on effects of smoking & provide smoking cessation resource, Assist pt to set quit date & provide encouragement, Assist pt to develop strategies to achieve/maintain quit date, Assist pt w/nicotine replacement & medication for cessation success and Other additional plan/interventions Hypertension Resting Blood Pressure:: 126/78 [place] [employer] Hypertension Guidelines Outcomes/Goals: Able to verbalize/achieve optimal blood pressure <130/80, Incorporates diet changes & exercise for blood pressure control by DC and Other additional outcomes/goals Interventions/plan: Instruct on optimal blood pressure, hypertension & medications, Instruct on effects of sodium, alcohol, stress, exercise &hypertension and Other additional plan/interventions Tobacco Cessation Referral Smoking Cessation Referral:: No Individual Education/Counseling:: No Education Schedule Given:: Yes Psychosocial - Initial Assess VIsit Date of Eval: 02/20/23 (initial eval ) History of previous Mental disease:: No Target Goals Target Goals Psychosocial Test Tool Used:: [employer] QOL Cardiac and PHQ-9 Questionnaire phq-9 Severity Outcomes/Goals: See list Psychosocial Outcomes/Goals:: ID's personal stressors & 2 strategies to manage stress by discharge and Other Additional outcome/goals: Intervention/Plan: See List Interventions/Plan:: Assess stressors,coping strategies & signs of derpression on admission, Instruct/assist pt to develop coping & personal stress Mgt strategies, Refer to Behavioral Health if appropriate, Refer to Physician if appropriate, Instruct patient to recognize signs & symptoms of depression, Instruct patient to recog and Other additional plan/intervention Patient Health Questionnaire PHQ-9 Screening Initial Assessment: 1. Little interest or pleasure in doing things: Not at all 2. Feeling down, depressed, or hopeless: Not at all 3. Trouble falling or staying asleep, or sleeping too much: Not at all 4. Feeling tired or having little energy: Not at all 5. Poor appetite or overeating: Not at all 6. Feeling bad about yourself -- or that you are a failure or have let yourself or your family down: Not at all 7. Trouble concentrating on things, such as reading the newspaper or watching television: Not at all 8. Moving or speaking so slowly that other people could have noticed. Or the opposite - being so fidgety or restless that you have been moving around a lot more than usual: Not at all 9. Thoughts that you would be better off , or of hurting yourself in some way: Not at all How difficult have these problems made it for you to do your work, take care of things at home, or get along with other people?: Not difficult at all Total Score: 0 MARLA-Q SV Test Statements CAD is a disease of the arteries in the heart: False Examples of risk factors for heart disease: True Angina is chest pain or discomfort: True The benefits of resistance training include: True Eating more meat and dairy products: False Anti-platelet medications such as aspirin are important: True The only effective way to manage stress: False An exercise warm-up slowly increases heart rate: I Don't Know Prepared, processed foods usually have high sodium: True Depression is common after a heart attack: True The statin medications lower cholesterol: True To control blood pressure, lower the amount of sodium: True If someone gets chest discomfort during walking: False Transfats are partially hydrogenated vegetable oils: True Sleep apnea that is not treated increases the risk: False To control cholesterol, one should become a vegetarian: I Don't Know Someone knows if he/she is exercising at the right level: I Don't Know Diabetes cannot be prevented with exercise & health eating: False Stress is a large risk for heart attack: I Don't Know A diet that can help lower blood pressure is rich in: False Total Score Total Correct Responses: 15 Self-Efficacy 6-Item Scale Initial Assessment: We would like to know how confident you are in doing certain activities. Please select your confidence level for: Fatigue Select Number: 10 Physical Discomfort or Pain Select Number: 9 Emotional Distress Select Number: 9 Other Symptoms or Health Problems Select Number: 9 Different Tasks and Activities Select Number: 9 Medication Select Number: 9 Total Score:: 9 Nutrition Survey Nutrition Survey Instructions Scoring Instructions Nutrition Survey Initial: Have you lost >10 lbs over the past 2 months without trying?: No Are you following a special diet at home for diabetes, low fat, or low salt?: No Are you interested in meeting with a dietitian for help understanding your diet?: Yes Do you eat less than 3 meals a day?: No Do you eat fatty meats (vogt, sausage, ribs, etc), fried foods, desserts, large amounts of salad dressings, margarine, butter, or cheese most days?: No Do you have food allergies? [Enter types in comment field]: No Do you eat in restaurants more than 3 times a week?: No Do you season food with salt, seasoning salt, or garlic salt?: No Do you used canned, boxed, frozen meals, or soups, seasoning packets?: No Total Score:: 1 Exercise - Final/Discharge Physician Prescribed Exercise Modalities: Treadmill, Rower, Airdyne, NuStep, SciFit and Lateral Crew Dispatcher Frequency: 2x/week for 18 weeks [36 sessions] and 3x/week for 12 weeks [36 sessions] Intensity: 60-80% of age predicted maximum heart rate reserve Current METSs:: 3 Target Heart Rate:: 90-106 Nutrition - 30-Day Assessment Weight Mgt (Other Care) Height: 6 ft 2 in Weight:: 201 lb BMI: 25.8 Nutrition - 60-Day Assessment Weight Mgt (Other Care) Height: 6 ft 2 in Weight:: 201 lb BMI: 25.8 Core - Final Assessment Hypertension Resting Blood Pressure:: 126/78 [place] [employer] Hypertension Guidelines Core - 60-Day Assessment Hypertension Resting Blood Pressure:: 126/78 [place] [employer] Hypertension Guidelines Psychosocial - 30-Day Assess Target Goals Target Goals Psychosocial - 60-Day Assess Target Goals Target Goals Psychosocial - 90-Day Assess Target Goals Target Goals Psychosocial - Final Assessmen Target Goals Target Goals Nutrition - 90-Day Assessment Weight Mgt (Other Care) Height: 6 ft 2 in Weight:: 201 lb BMI: 25.8 Nutrition - Final Assessment Program Goals Patient has diagnosis of Hyperlipidemia (ICD E78)?: No Weight Mgt (Other Care) Height: 6 ft 2 in Weight:: 201 lb BMI: 25.8
[2023-02-20 08:20] VITALS: BP 126/78; PULSE 82; O2SAT 99
[2023-02-20 08:24] VITALS: BP 126/78
[2023-02-20 08:29] VITALS: BP 126/78; BMI 25.8
[2023-02-20 08:59] VITALS: BMI 25.8
== END | disposition home or self-care (01) ==
LOC: CR 07:49
PROVIDERS: PCP Internal Medicine; Referring Provider Internal Medicine Cardiovascular Disease; Visit Provider Internal Medicine Cardiovascular Disease
DX: I25.2 Old myocardial infarction (principal); I5A Non-ischemic myocardial injury (non-traumatic); Z86.39 Personal history of other endocrine, nutritional and metabolic disease; Z87.891 Personal history of nicotine dependence; E03.9 Hypothyroidism, unspecified; I45.6 Pre-excitation syndrome; I49.9 Cardiac arrhythmia, unspecified

== ENCOUNTER → 2023-03-28 | Outpatient (CLI) | payer MEDICARE, SELFPAY ==
[2023-03-22 08:13] VITALS: BMI 27.1
--- OUTSIDE RECORDS SUMMARY | 2023-03-28 12:13 | XMS RPT_ITS | CCD ---
Author Name Unknown Address [address] [place] [address] Organization [facility] Care Team Providers Care Digital Research Analyst Name Role Phone Mike VIERA, Harry Moctezuma Unavailable Lani VIERA, Sherif Ritchie Primary Care Provider [phone] Lani VIERA, Sherif Ritchie Primary Care Provider [phone] SHERIF WANG Primary Care Unavailable SHERIF WANG Primary Care Unavailable Thania Ramos Attending Unavailable JOSUÉ MELENDEZ Referring Unavailable LANI, SHERIF Ritchie Primary Care Unavailable Thania Ramos Referring Unavailable JOSUÉ MELENDEZ Attending Unavailable SHERIF WANG Primary Care Unavailable LANI, SHERIF Ritchie Referring Unavailable LANI, SHERIF Ritchie Primary Care Unavailable LANI, SHERIF Ritchie Referring Unavailable SHERIF WANG Attending Unavailable SHERIF WANG Primary Care Unavailable BJ HOLLINS Referring Unavailable Medications Current Medications Medication Drug Class(es) Dates Sig (Normalized) Sig (Original) ciprofloxacin 3 mg/ml ophthalmic solution (1 source) Quinolone Antimicrobial Start: 08-31-2022 End: 09-07-2022 take 1-2 drop(s) into the eye(s) every two hours, then take 1-2 drop(s) into the eye(s) every four hours ciprofloxacin HCl (CILOXAN) 0.3 % ophthalmic solution Use 1-2 drops inside right lower eyelid(s) every 2 hours while awake for 2 days, then 1-2 drops every 4 hours for next 5 days. 5 mL 0 08/31/2022 09/07/2022 Active Completed/Discontinued Medications Medication Drug Class(es) Dates Sig (Normalized) Sig (Original) atorvastatin 10 mg oral tablet (11 sources) HMG-CoA Reductase Inhibitor Start: 05-11-2021 End: 05-09-2022 take 1 tablet by mouth once daily at bedtime atorvastatin (LIPITOR) 10 mg tablet Indications: Hyperlipidemia, unspecified hyperlipidemia type Take 1 tablet by mouth daily at bedtime. 90 tablet 3 05/09/2022 Active Problems Active Problems Problem Classification Problem Date Documented Date Episodic/Chronic Disorders of lipid metabolism (14 sources) Hyperlipidemia; Translations: [Hyperlipidemia, unspecified] Onset: 06-05-2013 Chronic Inflammation; infection of eye (except that caused by tuberculosis or sexually transmitteddisease) (1 source) Acute conjunctivitis of right eye; Translations: [Unspecified acute conjunctivitis, right eye] Episodic Osteoarthritis (1 source) Unilateral primary osteoarthritis, right hip; Translations: [Osteoarthrosis, localized, primary, pelvic region and thigh] Onset: 05-05-2021 05-05-2021 Chronic Other screening for suspected conditions (not mental disorders or infectious disease) (2 sources) Patient encounter status; Translations: [Encounter for screening for malignant neoplasm of prostate] Episodic Otitis media and related conditions (1 source) Dysfunction of bilateral eustachian tubes; Translations: [Other specified disorders of Eustachian tube, bilateral] Episodic Thyroid disorders (14 sources) Hypothyroidism; Translations: [Hypothyroidism, unspecified] Onset: 06-05-2013 Chronic Past or Other Problems Problem Classification Problem Date Documented Da te Episodic/Chronic Other and unspecified benign neoplasm (10 sources) Benign neoplasm of colon; Translations: [Benign neoplasm of colon, unspecified] Onset: 03-13-2014 Episodic Other and unspecified benign neoplasm (12 sources) History of polyp of colon; Translations: [Personal history of colonic polyps] Onset: 06-05-2013 06-05-2013 Episodic Other and unspecified benign neoplasm (2 sources) Personal history of colonic polyps; Translations: [History of colon polyps] Onset: 06-05-2013 Episodic Other circulatory disease (10 sources) Transient hypertension; Translations: [Elevated blood-pressure reading, without diagnosis of hypertension] Onset: 10-22-2021 Episodic Unclassified (1 source) Problem Results Test Name Value Interpretation Reference Range Facil ity Vital Signs Date Time Vital Sign Value Performing Clinician Facility 10-24-2022 12:37-0400 Body height 186.9 cm Sherif Wang MD Work Phone: [facility] 10-24-2022 12:37-0400 Body weight 91.63 kg Sherif Wang MD Work Phone: [facility] 08-31-2022 14:39-0400 Body temperature 97.7 [degF] Krislyn Aberegg PA Work Phone: [facility] 08-31-2022 14:39-0400 Body weight 94.08 kg Krislyn Aberegg PA Work Phone: [facility] 08-31-2022 14:39-0400 Diastolic blood pressure 80 mm[Hg] Krislyn Aberegg PA Work Phone: [facility] 08-31-2022 14:39-0400 Heart rate 102 /min Krislyn Aberegg PA Work Phone: [facility] 08-31-2022 14:39-0400 Respiratory rate 18 /min Krislyn Aberegg PA Work Phone: [facility] 08-31-2022 14:39-0400 SaO2% (BldA) [Mass fraction] 97 % Krislyn Aberegg PA Work Phone: [facility] 08-31-2022 14:39-0400 Systolic blood pressure 122 mm[Hg] Krislyn Aberegg PA Work Phone: [facility] 03-29-2022 11:47-0500 Diastolic blood pressure 78 mm[Hg] Josué Melendez MD Work Phone: [facility] 03-29-2022 11:47-0500 Heart rate 86 /min Josué Melendez MD Work Phone: [facility] 03-29-2022 11:47-0500 SaO2% (BldA) [Mass fraction] 96 % Josué Melendez MD Work Phone: [facility] 03-29-2022 11:47-0500 Systolic blood pressure 123 mm[Hg] Josué Melendez MD Work Phone: [facility] 03-29-2022 11:27-0500 Respiratory rate 16 /min Josué Melendez MD Work Phone: [facility] 03-29-2022 09:35-0500 Body temperature 98.1 [degF] Josué Melendez MD Work Phone: [facility] 03-29-2022 09:35-0500 Body weight 94.3 kg Josué Melendez MD Work Phone: [facility] 01-17-2022 08:52-0500 Diastolic blood pressure 88 mm[Hg] Thania Allenville PA-C Work Phone: [facility] 01-17-2022 08:52-0500 Systolic blood pressure 148 mm[Hg] Thania Allenville PA-C Work Phone: [facility] 01-17-2022 08:17-0500 Body height 188 cm Thania Rachel PA-C Work Phone: [facility] 01-17-2022 08:17-0500 Body temperature 97.39 [degF] Thania Allenville PA-C Work Phone: [facility] 01-17-2022 08:17-0500 Body weight 94.35 kg Thania Allenville PA-C Work Phone: [facility] 01-17-2022 08:17-0500 Heart rate 102 /min Thania Allenville PA-C Work Phone: [facility] 01-17-2022 08:17-0500 Respiratory rate 14 /min Thania Rachel PA-C Work Phone: [facility] 01-17-2022 08:17-0500 SaO2% (BldA) [Mass fraction] 100 % Thania Allenville PA-C Work Phone: [facility] 10-30-2021 09:30-0400 Body temperature 97.39 [degF] Matthieu Espinosa APRN.CNP Work Phone: [facility] 10-30-2021 09:30-0400 Body weight 91.17 kg [facility]ICINE.POLICE LIAISON Work Phone: [facility] 10-30-2021 09:30-0400 Diastolic blood pressure 82 mm[Hg] [facility] INTERNAL MEDICINE.POLICE LIAISON Work Phone: [facility] 10-30-2021 09:30-0400 Heart rate 92 /min [facility] GENER[facility] INTERNAL MEDICINE.POLICE LIAISON Work Phone: [facility] 10-30-2021 09:30-0400 Respiratory rate 18 /min [facility] PH[facility] GENER[facility] INTERNAL MEDICINE.POLICE LIAISON Work Phone: [facility] 10-30-2021 09:30-0400 SaO2% (BldA) [Mass fraction] 99 % [facility] PH[facility] GENER[facility] INTERNAL MEDICINE.POLICE LIAISON Work Phone: [facility] 10-30-2021 09:30-0400 Systolic blood pressure 136 mm[Hg] [facility] PH[facility] GENER[facility] INTERNAL MEDICINE.POLICE LIAISON Work Phone: [facility] 10-22-2021 08:11-0400 Body height 188 cm Sherif Wang MD Work Phone: [facility] 10-22-2021 08:11-0400 Body temperature 97.3 [degF] Sherif Wang MD Work Phone: [facility] 10-22-2021 08:11-0400 Body weight 90.27 kg Sherif Wang MD Work Phone: [facility] 10-22-2021 08:11-0400 Diastolic blood pressure 74 mm[Hg] Sherif Wang MD Work Phone: [facility] 10-22-2021 08:11-0400 Heart rate 75 /min Sherif Wang MD Work Phone: [facility] 10-22-2021 08:11-0400 Respiratory rate 12 /min Sherif Wang MD Work Phone: [facility] 10-22-2021 08:11-0400 SaO2% (BldA) [Mass fraction] 99 % Sherif Wang MD Work Phone: [facility] 10-22-2021 08:11-0400 Systolic blood pressure 138 mm[Hg] Sherif Wang MD Work Phone: [facility] NEGATED: Highlighted [id number] 10:51-0500 Body height 187.96 cm Rona Montgomerytel [employer] [facility] Work Phone: NEGATED: Highlighted [id number] 10:51-0500 Body height 188 cm Rona Montgomerytel [employer] [facility] Work Phone: NEGATED: Highlighted [id number] 10:51-0500 Body mass index (BMI) [Ratio] 25.77 kg/m2 Rona Montgomerytel [facility] Work Phone: NEGATED: Highlighted [id number] 10:51-0500 Body temperature 97.3 [degF] [facility] Work Phone: NEGATED: Highlighted [id number] 10:51-0500 Body temperature 97.34 [degF] Rona Ulisestel [facility] Work Phone: NEGATED: Highlighted [id number] 10:51-0500 Body weight 90.72 kg Rona Montgomerytel [employer] [facility] Work Phone: NEGATED: Highlighted [id number] 10:51-0500 Body weight 91 kg [place]t Ulisestel [facility] Work Phone: Encounters Encounter Date Encounter Type Care Provider Facility Start: 02-06-2023 Patient Outreach Sherif chester MD Work Phone: [facility] Procedures Date Procedure Procedure Detail Performing Clinician Start: 10-18-2022 Lipid 1996 panel - S allison or Plasma Josué Melendez MD Work Phone: Start: 03-29-2022 Level iv surg pathol ogy gross&microscopic exam Josué Melendez MD Work Phone: Start: 03-29-2022 Colonoscopy flx dx w/collj spec when pfrmd Thania Ramos PA-C Work Phone: Start: 03-29-2022 Colonoscopy Sherif Lozano MD Work Phone: Start: 10-22-2021 Adult depression screening assessment Sherif Wang MD Work Phone: Start: 05-05-2021 End: 05-05-2021 BP scrn no perf at interval Harry Mckeon MD Work Phone: Start: 05-05-2021 End: 05-05-2021 Calc BMI abv up glendy f/u Harry castellon MD Work Phone: Start: 05-05-2021 End: 05-05-2021 Current tobacco non-user cad cap copd pv dm Harry Mckeon MD Work Phone: Start: 05-05-2021 End: 05-05-2021 Docrev cur meds by elig clin Harry Mckeon MD Work Phone: Start: 05-05-2021 End: 05-05-2021 Osteoarthritis symptoms&funcjal status asses Harry Mckeon MD Work Phone: Start: 05-05-2021 End: 05-05-2021 Pain doc pos and plan Harry figueroa MD Work Phone: Start: 05-05-2021 End: 05-05-2021 Patient encounter procedure Harry Mckeon MD Work Phone: Start: 02-24-2017 Colonoscopy Sherif Lozano MD Work Phone: NEGATED: Highlighted rowStart: 05-05-2021 End: 05-05-2021 Documentation of current medications Rona Becerra LPN Plan of Treatment Date Care Activity Detail Author Start: 10-19-2027 Lipid 1996 panel - Serum or Plasma Lipid Screening [facility] Start: 10-19-2027 LIPID SCREEN LIPID SCREEN [facility] Start: 10-22-2026 LIPID SCREEN LIPID SCREEN [facility] Start: 10-22-2026 PROSTATE CANCER SCREENING DISCUSSION PROSTATE CANCER SCREENING DISCUSSION [facility] Start: 10-18-2025 DIABETES SCREEN DIABETES SCREEN [facility] Start: 10-18-2025 Diabetes Screening Diabetes Screening [facility] Start: 10-14-2025 LIPID SCREEN LIPID SCREEN [facility] Start: 03-29-2025 Colonoscopy COLONOSCOPY [facility] Start: 03-29-2025 COLORECTAL CANCER SCREENING COLORECTAL CANCER SCREENING [facility] Start: 10-22-2024 DIABETES SCREEN DIABETES SCREEN [facility] Start: 10-25-2023 ANNUAL PCP TEAM CHRONIC DISEASE VISIT ANNUAL PCP TEAM CHRONIC DISEASE VISIT [facility] Start: 06-06-2023 Urine microalbumin profile [facility] Start: 12-05-2022 End: 02-04-2023 Thyrotropin [Units/volume] in Serum or Plasma TSH BLD Lab Routine Hypothyroidism, unspecified type Expected: 12/05/2022, Expires: 02/04/2023 [facility] Work Phone: Immunizations Immunization Date Immunization Notes Care Provider Fa cility 12-07-2021 influenza virus vacc ine, unspecified formulation Josué Melendez MD Work Phone: [facility] 11-22-2019 influenza, high-dose , quadrivalent vaccine (FLUZONE HIGH DOSE QUADRIVALENT) Sherif Wang MD Work Phone: [facility] Work Phone: 10-16-2019 pneumococcal polysaccharide vaccine, 23 valent Sherif Wang MD Work Phone: [facility] Work Phone: 12-13-2018 influenza, high dose seasonal, preservative-free Sherif Wang MD Work Phone: [facility] Work Phone: 06-19-2018 pneumococcal conjuga te vaccine, 13 valent Sherif Wang MD Work Phone: [facility] Work Phone: 12-11-2017 influenza, injectabl e, quadrivalent, contains preservative Sherif Wang MD Work Phone: [facility] Work Phone: 06-22-2017 zoster vaccine recombinant Sherif Wang MD Work Phone: [facility] Work Phone: 04-18-2017 zoster vaccine recombinant Sherif Wang MD Work Phone: [facility] Work Phone: 11-15-2016 influenza, seasonal, injectable Sherif Wang MD Work Phone: [facility] Work Phone: 10-30-2015 influenza, seasonal, injectable Sherif Wang MD Work Phone: [facility] 06-05-2013 tetanus toxoid, redu darius diphtheria toxoid, and acellular pertussis vaccine, adsorbed Sherif Wang MD Work Phone: [facility] Work Phone: 03-06-2013 zoster vaccine, live Sherif Wang MD Work Phone: [facility] Work Phone: Payers Date Payer Category Payer Medicare [employer] MEDICARE A ETNA MEDICARE PPO [id number] 2021-Present [phone] [address] [place] [address] O [id number] 2021 Medicare [id number] Social History Date Type Detail Facility Start: 05-05-2021 End: 05-05-2021 Assertion Unknown if ever smoked [facility] Work Phone: Start: 10-22-2021 Tobacco smoking stat [facility] Ex-smoker [facility] Work Phone: End: 02-24-1978 History of tobacco use Current smoker [facility] Work Phone: End: 02-24-1978 History of tobacco use Cigarette Smoker [facility] Work Phone: History of tobacco use Cigar Smoker [facility] Work Phone: Start: 10-22-2021 End: 10-24-2022 Tobacco use and exposure Smokeless tobacco non-user [facility] Work Phone: Start: 10-22-2021 End: 10-24-2022 Alcohol intake Current non-drinker of alcohol (finding) [facility] Start: 10-19-2021 History SDOH Alcohol Frequency 1 [facility] Start: 10-19-2021 History SDOH Alcohol Std Drinks 0 [facility] Start: 10-19-2021 History SDOH Social Connections Phone 4 [facility] Start: 10-19-2021 History SDOH Social Connections Get Together 2 [facility] Start: 10-19-2021 History SDOH Social Connections Mandaen 3 [facility] Start: 10-19-2021 History SDOH Physica l Activity DPW 7 [facility] Start: 10-19-2021 History SDOH Physica l Activity MPS 6 [facility] Start: 10-19-2021 History SDOH Financial 5 [facility] Start: 01-26-2019 Education 18 [facility] Start: 10-22-2021 Tobacco Comment [facility] Start: 1955 Sex Assigned At Not on file C [facility] Start: 10-20-2021 End: 10-30-2021 Exposure to SARS-CoV-2 (event) Unable to assess [facility] Work Phone: Start: 01-07-2022 End: 01-17-2022 Exposure to SARS-CoV-2 (event) Not sure [facility] Start: 10-19-2021 End: 10-17-2022 History of Social function [facility] Start: 10-19-2021 End: 10-17-2022 Social connection and isolation panel [facility] Do you belong to any clubs or organizations such as congregation groups, unions, fraternal or athletic groups, or school groups? Yes [facility] Are you now , , , , never or living with a partner? [facility] How often to you hav e a drink containing alcohol? Never [facility] How many standard drinks containing alcohol do you have on a typical day? Patient does not drink [facility] Do you feel stress - tense, restless, nervous, or anxious, or unable to sleep at night because your mind is troubled all the time - these days [OSQ] Not at all [facility] (I/We) worried wheth er (my/our) food would run out before (I/we) got money to buy more. Never true [facility] In the past 12 month s, was there a time when you were not able to pay the mortgage or rent on time? No [facility] Start: 10-24-2022 Tobacco smoking stat us NHIS Occasional tobacco smoker [facility] Work Phone: How often to you hav e a drink containing alcohol? Monthly or less [facility] Start: 10-24-2022 Tobacco Comment Cigar on occasion. [facility] NEGATED: Highlighted rowStart: 05-05-2021 End: 05-05-2021 Employment detail Employment detail [facility] Work Phone: Clinical Notes 03-19-2015 to 02-06-2023 Piedad Hargrove LPN - 02/06/2023 2:31 PM Sherif Hernnadez MD - 10/24/2022 1:28 PM Sherif Garcia MD - 10/24/2022 1:05 PM REGAN Middleton - 08/31/2022 2:58 PM EDT Note Date & Type Note Facility 02-06-2023 Note HNO ID: [id number] Author: Piedad Hargrove LPN Service: ? Author Type: ? Type: Progress Notes Filed: 02/06/2023 2:35 PM Note Text: TRANSITION CARE MANAGEMENT (TCM) INITIAL CONTACT Cardiovascular Invasive Specialist Outreach Provider Action/FYI: TCM Initial contact with patient post discharge, spoke to patient. Patient identified by name and . TRANSITION CARE MANAGEMENT INITIAL OUTREACH DOCUMENTATION: Date of Outreach: 02/06/2023 Outreach Attempt 1: Contact Made Date of Discharge 02/04/2023 Some recent data might be hidden SUMMARY: -Pt discharged from [facility] on 02/04[facility]23. -Admitted for: [place] Do you have a hospital follow up appointment with your PCP? Appointment on pt declines with . He notes his is following up with cardiology. No. Assist patient with follow-up appointment within 1-14 calendar days from discharge date. If patient prefers not to schedule follow-up appointment at this time, notify PCP. MEDICATIONS: Many patients have questions or concerns about their medications once they are home. Were you prescribed any new medications? If yes, what are those medications? Atorvastain 80 mg daily Amlodipine 5mg daily Asa 81 mg daily Metoprolol succinate 25mg daily Ranatozine 500mg one twice daily Were you told to hold any medications? No Were any of your medications discontinued? If yes, what are those medications? Atorvastatin 10 mg daily Do you have any questions about getting or taking your medications? No Your discharge instructions/After visit Summary (AVS) are important in guiding you through the recovery process. Is there anything I might help you understand? No Do you have all the necessary equipment and supplies at home? Yes Medical records from recent hospitalization: Placed for provider to review [facility] 02-06-2023 History of Presen t illness Narrative TRANSITION CARE MANAGEMENT (TCM) INITIAL CONTACT Cardiovascular Invasive Specialist Outreach Provider Action/FYI: TCM Initial contact with patient post discharge, spoke to patient. Patient identified by name and . TRANSITION CARE MANAGEMENT INITIAL OUTREACH DOCUMENTATION: Date of Outreach: 02/06/2023 Outreach Attempt 1: Contact Made Date of Discharge 02/04/2023 Some recent data might be hidden SUMMARY: -Pt discharged from [facility] on 02/04/23. -Admitted for: [place] Do you have a hospital follow up appointment with your PCP? Appointment on pt declines with . He notes his is following up with cardiology. No. Assist patient with follow-up appointment within 1-14 calendar days from discharge date. If patient prefers not to schedule follow-up appointment at this time, notify PCP. MEDICATIONS: Many patients have questions or concerns about their medications once they are home. Were you prescribed any new medications? If yes, what are those medications? Atorvastain 80 mg daily Amlodipine 5mg daily Asa 81 mg daily Metoprolol succinate 25mg daily Ranatozine 500mg one twice daily Were you told to hold any medications? No Were any of your medications discontinued? If yes, what are those medications? Atorvastatin 10 mg daily Do you have any questions about getting or taking your medications? No Your discharge instructions/After visit Summary (AVS) are important in guiding you through the recovery process. Is there anything I might help you understand? No Do you have all the necessary equipment and supplies at home? Yes Medical records from recent hospitalization: Placed for provider to review documented in this encounter [facility] 02-06-2023 Note Patient Outreach (IN TMWS) PEREZ KINCAID ([id number]) 1955 M Date Time Provider Department 02/06/23 SHERIF WANG During your visit today, we recorded the following information about you: Piedad Hargrove LPN 02/06/2023 2:35 PM Signed TRANSITION CARE MANAGEMENT (TCM) INITIAL CONTACT Cardiovascular Invasive Specialist Outreach Provider Action/FYI: TCM Initial contact with patient post discharge, spoke to patient. Patient identified by name and . TRANSITION CARE MANAGEMENT INITIAL OUTREACH DOCUMENTATION: Date of Outreach: 02/06/2023 Outreach Attempt 1: Contact Made Date of Discharge 02/04/2023 Some recent data might be hidden SUMMARY: -Pt discharged from [facility] on 02/04/23. -Admitted for: [place] Do you have a hospital follow up appointment with your PCP? Appointment on pt declines with . He notes his is following up with cardiology. No. Assist patient with follow-up appointment within 1-14 calendar days from discharge date. If patient prefers not to schedule follow-up appointment at this time, notify PCP. MEDICATIONS: Many patients have questions or concerns about their medications once they are home. Were you prescribed any new medications? If yes, what are those medications? Atorvastain 80 mg daily Amlodipine 5mg daily Asa 81 mg daily Metoprolol succinate 25mg daily Ranatozine 500mg one twice daily Were you told to hold any medications? No Were any of your medications discontinued? If yes, what are those medications? Atorvastatin 10 mg daily Do you have any questions about getting or taking your medications? No Your discharge instructions/After visit Summary (AVS) are important in guiding you through the recovery process. Is there anything I might help you understand? No Do you have all the necessary equipment and supplies at home? Yes Medical records from recent hospitalization: Placed for provider to review Allergies As of Date: 02/06/2023 (No Known Allergies) Date Reviewed: 10/24/2022 Reviewed by: Beverly Yang LPN - Fully Assessed Reason for Visit: Transition Of Care [4074] Prescriptions as of 02/06/2023 - levothyroxine (SYNTHROID) 175 mcg tablet Take 1 tablet by mouth daily before breakfast. - atorvastatin (LIPITOR) 10 mg tablet Take 1 tablet by mouth daily at bedtime. Problem List As Of Date 02/06/2023 Noted Resolved Hypothyroidism [E03.9] History of colon polyps [Z86.010] 06/05/2013 Hyperlipidemia [E78.5] Personal history of colonic polyps [Z86.010] 11/07/2013 06/22/2015 Benign neoplasm of colon [D12.6] 03/13/2014 SVT (supraventricular tachycardia) (HCC) [I47.1*08/14/2014 06/22/2016 DDD (degenerative disc disease), lumbar [M51.36] 06/22/2015 Colon polyp [K63.5] 02/03/2011 06/22/2015 Snoring [R06.83] 06/22/2015 Herniation of cervical intervertebral disc with*03/19/2015 06/22/2016 Spinal stenosis in cervical region [M48.02] 03/19/2015 06/22/2015 Elevated blood pressure, situational [R03.0] 10/22/2021 Encounter Status:Closed by PIEDAD HARGROVE LPN on 02/06/23 [facility] 10-24-2022 Note HNO ID: [id number] Author: Sherif Wang MD Service: ? Author Type: Physician Type: Progress Notes Filed: 10/24/2022 1:33 PM Note Text: This note was created using NoteWriter. Subjective Perez Kincaid is a 67 year old male. He felt well. He noted some decrease in energy this summer and wondered about his TSH result. His Synthroid dose has not changed, and he was taking medication regularly as instructed. His lipids were controlled, and atorvastatin was taken with no side effects. Review of Systems Constitutional: Negative for activity change and unexpected weight change. Respiratory: Negative for shortness of breath. Cardiovascular: Negative for chest pain. Gastrointestinal: Negative for abdominal pain. ACTIVE PROBLEM LIST Hypothyroidism History of Colon Polyps Hyperlipidemia Benign Neoplasm of Colon Elevated Blood Pressure, Situational Social History Tobacco Use Smoking status: Some Days Years: 3 Types: Cigarettes, Cigars Last attempt to quit: 02/24/1978 Years since quittin.6 Smokeless tobacco: Never Tobacco comments: Cigar on occasion. Vaping Use Vaping Use: Never used Substance Use Topics Alcohol use: No Drug use: No Objective BP (P) 130/76 (BP Site: Left Arm, BP Position: Sitting, BP Cuff Size: Large Adult) Pulse (P) 80 Ht 186.9 cm (6' 1.6 ) Wt 91.6 kg (202 lb) BMI 26.22 kg/m? Physical Exam Constitutional: General: He is not in acute distress. Neck: Thyroid: No thyromegaly or thyroid tenderness. Cardiovascular: Rate and Rhythm: Normal rate and regular rhythm. Heart sounds: No murmur heard. No gallop. Pulmonary: Breath sounds: Normal breath sounds. Abdominal: Tenderness: There is no abdominal tenderness. Musculoskeletal: Cervical back: No tenderness. Right lower leg: No edema. Left lower leg: No edema. Neurological: Mental Status: He is alert. Component Latest Ref Rng AND Units 10/18/2022 Protein, Total 6.3 - 8.0 g/dL 7.3 Albumin 3.9 - 4.9 g/dL 4.1 Calcium 8.5 - 10.2 mg/dL 9.4 Bilirubin, Total 0.2 - 1.3 mg/dL 0.4 Alkaline Phosphatase 38 - 113 U/L 63 AST 14 - 40 U/L 22 ALT 10 - 54 U/L 21 Glucose 74 - 99 mg/dL 98 BUN 9 - 24 mg/dL 16 Creatinine 0.73 - 1.22 mg/dL 1.00 Sodium 136 - 144 mmol/L 140 Potassium 3.7 - 5.1 mmol/L 4.4 Chloride 97 - 105 mmol/L 105 CO2 22 - 30 mmol/L 24 Anion Gap 9 - 18 mmol/L 11 eGFR >=60 mL/min/1.73mA? 81 Cholesterol, Total <200 mg/dL 153 Triglyceride <150 mg/dL 96 HDL Cholesterol >39 mg/dL 32 (L) Non HDL Cholesterol <130 mg/dL 121 Fasting Time hrs 10 VLDL Cholesterol <30 mg/dL 19 TC:HDL Ratio <5.10 4.78 LDL Cholesterol <100 mg/dL 102 (H) LDL:HDL Ratio <2.54 3.19 (H) TSH 0.270 - 4.200 mIU/L 4.710 (H) Assessment and Plan 1. Medicare annual wellness visit, subsequent - ICD9: V70.0, ICD10: Z00.00 (primary diagnosis) See wellness note. 2. Hypothyroidism, unspecified type - ICD9: 244.9, ICD10: E03.9 - Instructed patient on importance of taking on an empty stomach either first thing in the morning or at bedtime. - continue current dose of Synthroid for now. - TSH BLD in 6 weeks. 3. Hyperlipidemia, unspecified hyperlipidemia type - ICD9: 272.4, ICD10: E78.5 - Controlled - Continue current medications - Counseled on healthy diet and regular exercise Sherif Wang MD [facility] 10-24-2022 Note HNO ID: [id number] Author: Sherif Wang MD Service: ? Author Type: Physician Type: Progress Notes Filed: 10/24/2022 1:33 PM Note Text: Perez Kincaid is a 67 year old male here for a Medicare wellness visit. Health Risk Assessment In general, health is: Very good Concerns with balance:Not at all Concerns with teeth or dentures:Not at all Concerns with sexual function:Not at all [place] anxious, stressed, angry, irritable, lonely, isolated, or had thoughts of hurting themself: Not at all Has little interest or pleasure in doing things: Not at all Bothered by feeling down, depressed, or hopeless: Not at all Needs help with grocery shopping, cooking, housework, bathing, grooming, dressing, eating, sitting or standing, walking, using the toilet, handling finances, taking medications, using the telephone, or driving: No Following safety precautions in the home environment and vehicle: removed throw rugs from floors, installed grab bars in the bathroom, handrails in stairwells, having adequate lighting, wearing seatbelt at all times?: Yes Smokes cigarettes, vapes, or chew tobacco: Yes. Eats healthy foods including fruits, vegetables, whole grains, and fiber-rich foods: Nearly every day Number of days per week engages in exercise: 7 days Average alcohol consumption: Monthly or less Current Providers Specialists: I have reviewed specialist-related care of the patient in the medical record. Current care team: Patient Care Team: Sherif Wang MD as PCP - General (Internal Medicine) Outside specialists seen: [facility], [place]. Medical/Family history review Reviewed and updated problem list, medical/surgical/family/social history, medications, and allergies. Opioid use review Patient is not currently using opioids. Depression screening Depression Screening PHQ-2 Score PHQ-9 Score YA-2 Total Score 10/17/2022 0 0 - Depression screening tool completed and reviewed. Based on score and interview, patient is not at risk for depression. Screening tool discussed with patient, and I recommended no further intervention at this time. Cognitive screening Mini Cog Score. Functional Observation Was the patient's timed Up AND Go test unsteady or ? 12 seconds? No Advance Care Planning End of Life planning discussed, including patient's advanced directive wishes: Yes Measurements Ht 6' 1.6 (1.87m) Wt 202 lb (91.6kg) BMI 26.23 kg/(m2). Visual acuity (required for Welcome to Medicare): follows with optometry/ophthalmology and Right: 20/40 Left: 20/ Both: 20/50 Hearing Evaluation: within normal limits Assessment/Plan Medicare annual wellness visit, subsequent (Z00.00) - Fall avoidance - Vaccines recommended COVID-19 - Depression screening [facility] 10-24-2022 History of Presen t illness Narrative This note was created using Shibumiriter. Subjective Perez Kincaid is a 67 year old male. He felt well. He noted some decrease in energy this summer and wondered about his TSH result. His Synthroid dose has not changed, and he was taking medication regularly as instructed. His lipids were controlled, and atorvastatin was taken with no side effects. Review of Systems Constitutional: Negative for activity change and unexpected weight change. Respiratory: Negative for shortness of breath. Cardiovascular: Negative for chest pain. Gastrointestinal: Negative for abdominal pain. ACTIVE PROBLEM LIST Hypothyroidism History of Colon Polyps Hyperlipidemia Benign Neoplasm of Colon Elevated Blood Pressure, Situational Social History Tobacco Use Smoking status: Some Days Years: 3 Types: Cigarettes, Cigars Last attempt to quit: 02/24/1978 Years since quittin.6 Smokeless tobacco: Never Tobacco comments: Cigar on occasion. Vaping Use Vaping Use: Never used Substance Use Topics Alcohol use: No Drug use: No Objective BP (P) 130/76 (BP Site: Left Arm, BP Position: Sitting, BP Cuff Size: Large Adult) Pulse (P) 80 Ht 186.9 cm (6' 1.6 ) Wt 91.6 kg (202 lb) BMI 26.22 kg/m Physical Exam Constitutional: General: He is not in acute distress. Neck: Thyroid: No thyromegaly or thyroid tenderness. Cardiovascular: Rate and Rhythm: Normal rate and regular rhythm. Heart sounds: No murmur heard. No gallop. Pulmonary: Breath sounds: Normal breath sounds. Abdominal: Tenderness: There is no abdominal tenderness. Musculoskeletal: Cervical back: No tenderness. Right lower leg: No edema. Left lower leg: No edema. Neurological: Mental Status: He is alert. Component Latest Ref Rng & Units 10/18/2022 Protein, Total 6.3 - 8.0 g/dL 7.3 Albumin 3.9 - 4.9 g/dL 4.1 Calcium 8.5 - 10.2 mg/dL 9.4 Bilirubin, Total 0.2 - 1.3 mg/dL 0.4 Alkaline Phosphatase 38 - 113 U/L 63 AST 14 - 40 U/L 22 ALT 10 - 54 U/L 21 Glucose 74 - 99 mg/dL 98 BUN 9 - 24 mg/dL 16 Creatinine 0.73 - 1.22 mg/dL 1.00 Sodium 136 - 144 mmol/L 140 Potassium 3.7 - 5.1 mmol/L 4.4 Chloride 97 - 105 mmol/L 105 CO2 22 - 30 mmol/L 24 Anion Gap 9 - 18 mmol/L 11 eGFR >=60 mL/min/1.73m 81 Cholesterol, Total <200 mg/dL 153 Triglyceride <150 mg/dL 96 HDL Cholesterol >39 mg/dL 32 (L) Non HDL Cholesterol <130 mg/dL 121 Fasting Time hrs 10 VLDL Cholesterol <30 mg/dL 19 TC:HDL Ratio <5.10 4.78 LDL Cholesterol <100 mg/dL 102 (H) LDL:HDL Ratio <2.54 3.19 (H) TSH 0.270 - 4.200 mIU/L 4.710 (H) Assessment and Plan 1. Medicare annual wellness visit, subsequent - ICD9: V70.0, ICD10: Z00.00 (primary diagnosis) See wellness note. 2. Hypothyroidism, unspecified type - ICD9: 244.9, ICD10: E03.9 - Instructed patient on importance of taking on an empty stomach either first thing in the morning or at bedtime. - continue current dose of Synthroid for now. - TSH BLD in 6 weeks. 3. Hyperlipidemia, unspecified hyperlipidemia type - ICD9: 272.4, ICD10: E78.5 - Controlled - Continue current medications - Counseled on healthy diet and regular exercise Sherif Wang MD Perez Kincaid is a 67 year old male here for a Medicare wellness visit. Health Risk Assessment In general, health is: Very good Concerns with balance:Not at all Concerns with teeth or dentures:Not at all Concerns with sexual function:Not at all [place] anxious, stressed, angry, irritable, lonely, isolated, or had thoughts of hurting themself: Not at all Has little interest or pleasure in doing things: Not at all Bothered by feeling down, depressed, or hopeless: Not at all Needs help with grocery shopping, cooking, housework, bathing, grooming, dressing, eating, sitting or standing, walking, using the toilet, handling finances, taking medications, using the telephone, or driving: No Following safety precautions in the home environment and vehicle: removed throw rugs from floors, installed grab bars in the bathroom, handrails in stairwells, having adequate lighting, wearing seatbelt at all times?: Yes Smokes cigarettes, vapes, or chew tobacco: Yes. Eats healthy foods including fruits, vegetables, whole grains, and fiber-rich foods: Nearly every day Number of days per week engages in exercise: 7 days Average alcohol consumption: Monthly or less Current Providers Specialists: I have reviewed specialist-related care of the patient in the medical record. Current care team: Patient Care Team: Sherif Wang MD as PCP - General (Internal Medicine) Outside specialists seen: [facility]. Medical/Family history review Reviewed and updated problem list, medical/surgical/family/social history, medications, and allergies. Opioid use review Patient is not currently using opioids. Depression screening Depression Screening PHQ-2 Score PHQ-9 Score YA-2 Total Score 10/17/2022 0 0 - Depression screening tool completed and reviewed. Based on score and interview, patient is not at risk for depression. Screening tool discussed with patient, and I recommended no further intervention at this time. Cognitive screening Mini Cog Score. Functional Observation Was the patient's timed Up & Go test unsteady or ? 12 seconds? No Advance Care Planning End of Life planning discussed, including patient's advanced directive wishes: Yes Measurements Ht 6' 1.6 (1.87m) Wt 202 lb (91.6kg) BMI 26.23 kg/(m^2). Visual acuity (required for Welcome to Medicare): follows with optometry/ophthalmology and Right: 20/40 Left: 20/ Both: 20/50 Hearing Evaluation: within normal limits Assessment/Plan Medicare annual wellness visit, subsequent (Z00.00) - Fall avoidance - Vaccines recommended COVID-19 - Depression screening documented in this encounter [facility] 08-31-2022 Note HNO ID: [id number] Author: REGAN Chowdary Service: ? Author Type: Physician Property Management Specialist Type: Progress Notes Filed: 08/31/2022 3:00 PM Note Text: This note was created using Shibumiriter. Subjective Perez Kincaid is a 67 year old male. HPI 67-year-old male presents for right eye irritation, redness and drainage. Patient states that last night he started getting some redness and irritation in his right eye. He does wear contacts. He took out his contact and it still felt irritated. States this morning he woke up and the eye was crusty and draining. He has his glasses on today. No vision changes. It is a little light sensitive. No pain in the eye. No itching. No cough or URI symptoms. No fevers. PAST MEDICAL HISTORY Diagnosis Date Benign neoplasm of colon 03/13/2014 Colon polyp 02/03/2011 DDD (degenerative disc disease), lumbar intermittent back pain Herniation of cervical intervertebral disc with radiculopathy 03/19/2015 History of transfusion Hyperlipidemia Hypertension Hypothyroidism Snoring Spinal stenosis in cervical region 03/19/2015 SVT (supraventricular tachycardia) (HCC) 08/14/2014 PAST SURGICAL HISTORY Procedure Laterality Date ARTHROSCOPY KNEE SUBCHONDROPLAST Right 05/04/2020 COLONOSCOPY AND POLYPECTOMY 02/2011 repeat due 2013 COLONOSCOPY FLX DX W/COLLJ SPEC WHEN PFRMD 02/24/2017 benign polyp, repeat in 5 years COLONOSCOPY SCREENING 03/29/2022 multiple adenomatous polyps, repeat in 3 years COLSC FLX W/RMVL OF TUMOR POLYP LESION SNARE TQ 03/04/2014 tubular adenoma, repeat in 2016 ALLERGIES Patient has no known allergies. MEDICATIONS levothyroxine (SYNTHROID) 175 mcg tablet Take 1 tablet by mouth daily before breakfast. atorvastatin (LIPITOR) 10 mg tablet Take 1 tablet by mouth daily at bedtime. ciprofloxacin HCl (CILOXAN) 0.3 % ophthalmic solution Use 1-2 drops inside right lower eyelid(s) every 2 hours while awake for 2 days, then 1-2 drops every 4 hours for next 5 days. FAMILY HISTORY Problem Relation Age of Onset Blood Disease Mother Cancer Father 64 Lung other (Liver condition) Brother No Known Problems Maternal Grandmother No Known Problems Maternal Grandfather No Known Problems Paternal Grandmother No Known Problems Paternal Grandfather No Known Problems Daughter No Known Problems Son No Known Problems Son Social History Tobacco Use Smoking status: Former Years: 3.00 Types: Cigarettes, Cigars Quit date: 02/24/1978 Years since quittin.5 Smokeless tobacco: Never Tobacco comments: just in college Vaping Use Vaping Use: Never used Substance Use Topics Alcohol use: No Drug use: No Review of Systems Constitutional: Negative for chills and fever. HENT: Negative for congestion and sore throat. Eyes: Positive for photophobia, discharge and redness. Negative for pain, itching and visual disturbance. Respiratory: Negative for cough and shortness of breath. Gastrointestinal: Negative for diarrhea and vomiting. Objective BP 122/80 Pulse 102 Temp 36.5 ?C (97.7 ?F) (Tympanic) Resp 18 Wt 94.1 kg (207 lb 6.4 oz) SpO2 97% BMI 26.63 kg/m? Physical Exam Vitals and nursing note reviewed. Constitutional: General: He is not in acute distress. Appearance: Normal appearance. He is not toxic-appearing. HENT: Nose: Nose normal. Mouth/Throat: Mouth: Mucous membranes are moist. Eyes: General: Vision grossly intact. Extraocular Movements: Extraocular movements intact. Conjunctiva/sclera: Right eye: Right conjunctiva is injected. Cardiovascular: Rate and Rhythm: Normal rate and regular rhythm. Pulmonary: Effort: Pulmonary effort is normal. Breath sounds: Normal breath sounds. Skin: General: Skin is warm and dry. Neurological: Mental Status: He is alert. Assessment and Plan ASSESSMENT/PLAN: 1. Acute conjunctivitis of right eye, unspecified acute conjunctivitis type - ICD9: 372.00, ICD10: H10.31 - see medication orders-ciprofloxacin drops, patient is contact wearer. -Advise not to wear contacts during duration of treatment and change contact out for a new one after treatment complete. - course and contagiousness issues discussed, including hand washing. - Instructed to call if high fever, development of periorbital redness or swelling, eye pain, visual changes, concerns or if symptoms persist. Diagnosis and treatment plan were discussed and questions were answered to the patient's satisfaction. Pt acknowledged understanding of concepts and follow up plan. Specific signs and symptoms that would indicate the need for higher level of care were discussed in detail warranting prompt ER evaluation. REGAN Chowdary [facility] 08-31-2022 History of Presen t illness Narrative This note was created using Shibumiriter. Subjective Perez Kincaid is a 67 year old male. HPI 67-year-old male presents for right eye irritation, redness and drainage. Patient states that last night he started getting some redness and irritation in his right eye. He does wear contacts. He took out his contact and it still felt irritated. States this morning he woke up and the eye was crusty and draining. He has his glasses on today. No vision changes. It is a little light sensitive. No pain in the eye. No itching. No cough or URI symptoms. No fevers. PAST MEDICAL HISTORY Diagnosis Date Benign neoplasm of colon 03/13/2014 Colon polyp 02/03/2011 DDD (degenerative disc disease), lumbar intermittent back pain Herniation of cervical intervertebral disc with radiculopathy 03/19/2015 History of transfusion Hyperlipidemia Hypertension Hypothyroidism Snoring Spinal stenosis in cervical region 03/19/2015 SVT (supraventricular tachycardia) (HCC) 08/14/2014 PAST SURGICAL HISTORY Procedure Laterality Date ARTHROSCOPY KNEE SUBCHONDROPLAST Right 05/04/2020 COLONOSCOPY & POLYPECTOMY 02/2011 repeat due 2013 COLONOSCOPY FLX DX W/COLLJ SPEC WHEN PFRMD 02/24/2017 benign polyp, repeat in 5 years COLONOSCOPY SCREENING 03/29/2022 multiple adenomatous polyps, repeat in 3 years COLSC FLX W/RMVL OF TUMOR POLYP LESION SNARE TQ 03/04/2014 tubular adenoma, repeat in 2016 ALLERGIES Patient has no known allergies. MEDICATIONS levothyroxine (SYNTHROID) 175 mcg tablet Take 1 tablet by mouth daily before breakfast. atorvastatin (LIPITOR) 10 mg tablet Take 1 tablet by mouth daily at bedtime. ciprofloxacin HCl (CILOXAN) 0.3 % ophthalmic solution Use 1-2 drops inside right lower eyelid(s) every 2 hours while awake for 2 days, then 1-2 drops every 4 hours for next 5 days. FAMILY HISTORY Problem Relation Age of Onset Blood Disease Mother Cancer Father 64 Lung other (Liver condition) Brother No Known Problems Maternal Grandmother No Known Problems Maternal Grandfather No Known Problems Paternal Grandmother No Known Problems Paternal Grandfather No Known Problems Daughter No Known Problems Son No Known Problems Son Social History Tobacco Use Smoking status: Former Years: 3.00 Types: Cigarettes, Cigars Quit date: 02/24/1978 Years since quittin.5 Smokeless tobacco: Never Tobacco comments: just in college Vaping Use Vaping Use: Never used Substance Use Topics Alcohol use: No Drug use: No Review of Systems Constitutional: Negative for chills and fever. HENT: Negative for congestion and sore throat. Eyes: Positive for photophobia, discharge and redness. Negative for pain, itching and visual disturbance. Respiratory: Negative for cough and shortness of breath. Gastrointestinal: Negative for diarrhea and vomiting. Objective BP 122/80 Pulse 102 Temp 36.5 C (97.7 F) (Tympanic) Resp 18 Wt 94.1 kg (207 lb 6.4 oz) SpO2 97% BMI 26.63 kg/m Physical Exam Vitals and nursing note reviewed. Constitutional: General: He is not in acute distress. Appearance: Normal appearance. He is not toxic-appearing. HENT: Nose: Nose normal. Mouth/Throat: Mouth: Mucous membranes are moist. Eyes: General: Vision grossly intact. Extraocular Movements: Extraocular movements intact. Conjunctiva/sclera: Right eye: Right conjunctiva is injected. Cardiovascular: Rate and Rhythm: Normal rate and regular rhythm. Pulmonary: Effort: Pulmonary effort is normal. Breath sounds: Normal breath sounds. Skin: General: Skin is warm and dry. Neurological: Mental Status: He is alert. Assessment and Plan ASSESSMENT/PLAN: 1. Acute conjunctivitis of right eye, unspecified acute conjunctivitis type - ICD9: 372.00, ICD10: H10.31 - see medication orders-ciprofloxacin drops, patient is contact wearer. -Advise not to wear contacts during duration of treatment and change contact out for a new one after treatment complete. - course and contagiousness issues discussed, including hand washing. - Instructed to call if high fever, development of periorbital redness or swelling, eye pain, visual changes, concerns or if symptoms persist. Diagnosis and treatment plan were discussed and questions were answered to the patient's satisfaction. Pt acknowledged understanding of concepts and follow up plan. Specific signs and symptoms that would indicate the need for higher level of care were discussed in detail warranting prompt ER evaluation. REGAN Chowdary documented in this encounter [facility] 05-09-2022 Miscellaneous Notes DONOVAN: 10/22/2021 NOV: 10/24/2022 Last refill: 05/11/2021 QTY: 90 Refills: 3 documented in this encounter [facility] 04-05-2022 Note HNO ID: [id number] Author: Thania Ramos PA-C Service: ? Author Type: Physician Property Management Specialist Type: Progress Notes Filed: 04/05/2022 11:29 AM Note Text: FOLLOW UP VISIT - ENDOSCOPY NAME: Perez Kincaid [facility] NO.: [id number] DATE OF SERVICE: 04/05/2022 : 1955 REFERRING PHYSICIAN: Sherif Wang MD Perez is a patient I am following with Dr. Melendez for personal history of colon polyps and need for surveillance colonoscopy. Dr. Melendez performed lower endoscopy on 03/29/22. Findings per operative report showed: - Three small polyps in the descending colon and at the hepatic flexure, removed with a cold snare. Resected and retrieved. - Diverticulosis in the sigmoid colon. - The examination was otherwise normal on direct and retroflexion views. Pathology demonstrated: FINAL DIAGNOSIS A. Hepatic flexure polyp x2, biopsy: - Multiple fragments of tubular adenoma. B. Descending colon polyp, biopsy: - Tubular adenoma. The patient notes no complaints since the procedure. VITALS: Blood pressure 134/98, pulse 104, temperature 36.8 ?C (98.3 ?F), height 188 cm (6' 2 ), weight 94.3 kg (208 lb), SpO2 99 %. General: patient is alert, cooperative, pleasant and in no acute distress On examination, the abdomen is benign. Assessment IMPRESSION: s/p colonoscopy with polypectomy, multiple adenomatous polyps. diverticulosis PLAN: The operative findings and pathology report were reviewed with the patient, and the patient has had the opportunity to ask questions and have questions answered. If the patient notes any problems or changes in bowel function, the patient should contact me immediately. Otherwise I recommend follow up endoscopy in 3 years. HM updated and recall letter generated. Patient verbalized understanding of all above and agreed with the plan Diagnoses: (D36.9) Tubular adenoma (primary encounter diagnosis) (K57.90) Diverticulosis I spent a total of 22 minutes on the date of the service which included preparing to see the patient, [id number] patient care, completing clinical documentation, independently interpreting results (not separately reported), and communicating results to the patient/family/caregiver. Thania Ramos PA-C [facility] 03-29-2022 Nurse Note Pt received in PACU. Pt awake, resting comfortably. Denies pain or nausea. Abd soft and non distended. Sandy Phillip, RN documented in this encounter [facility] 03-29-2022 History and physical note UPDATED PROCEDURAL SEDATION HISTORY AND PHYSICAL EXAMINATION SERVICE DATE: 03/29/2022 SERVICE TIME: 10:34 AM PHYSICAL EXAM MUST BE COMPLETED ON ADMISSION PROCEDURE: Procedure Indications: The History and Physical (completed in the past 30 days) has been reviewed and the patient has been examined. The contents accurately reflect the patient's condition with the following additions or revisions since the H&P was completed. ASA Class: ASA Class:: Patient with mild systemic disease Examination indicates no changes. AIRWAY: Airway Visualization of Uvula: Yes Mouth opening greater than 2 fingerbreadths: Yes Neck Full Range of Motion: Yes LUNGS: Lungs clear to auscultation CARDIAC: Regular rhythm,Regular rate Provisional Diagnosis/Treatment Plan: personal history of colon polyps - colonoscopy SEDATION GOAL: Moderate This H&P can be found in the attached. SIGNATURE: Josué Melendez MD PATIENT NAME: Perez Kincaid DATE: March 29, 2022 TIME: 10:34 AM Source Note - Josué Melendez MD - 03/29/2022 9:45 AM EST Images from the original note were not included. HISTORY AND PHYSICAL Perez Kincaid 1955 REFERRING PHYSICIAN: Self CHIEF COMPLAINT: No chief complaint on file. HPI: The patient is a 66 year old male referred for endoscopy. Perez notes a history of colon polyps and is due for high-risk surveillance colonoscopy. Patient denies any change in bowel habits, weight changes, blood in stools, black tarry stools or abdominal pain. Denies family history of colon issues. The patient notes no upper GI complaints. Perez has undergone prior endoscopy. Last colonoscopy 02/24/[address] Melendez under conscious sedation with piecemeal removal of a benign polyp in the distal transverse colon. Patient denies chest pain, shortness of breath or recent hospitalizations. Denies problems with sedation in the past. PAST MEDICAL HISTORY PAST MEDICAL HISTORY Diagnosis Date Benign neoplasm of colon 03/13/2014 Colon polyp 02/2011 DDD (degenerative disc disease), lumbar intermittent back pain Herniation of cervical intervertebral disc with radiculopathy 03/19/2015 Hyperlipidemia Hypothyroidism Snoring Spinal stenosis in cervical region 03/19/2015 SVT (supraventricular tachycardia) (HCC) 08/14/2014 PAST SURGICAL HISTORY PAST SURGICAL HISTORY Procedure Laterality Date ARTHROSCOPY KNEE SUBCHONDROPLAST Right 05/04/2020 COLONOSCOPY & POLYPECTOMY 02/2011 repeat due 2013 COLONOSCOPY FLX DX W/COLLJ SPEC WHEN PFRMD 02/24/2017 benign polyp, repeat in 5 years COLSC FLX W/RMVL OF TUMOR POLYP LESION SNARE TQ 03/04/2014 tubular adenoma, repeat in 2016 CURRENT MEDICATIONS Current Outpatient Medications Medication Sig levothyroxine (SYNTHROID) 175 mcg tablet Take 1 tablet by mouth daily before breakfast. atorvastatin (LIPITOR) 10 mg tablet Take 1 tablet by mouth daily at bedtime. No current facility-administered medications for this visit. ALLERGIES: Patient has no known allergies. PERSONAL HISTORY: SOCIAL HISTORY Social History Tobacco Use Smoking status: Former Years: 3.00 Types: Cigarettes, Cigars Quit date: 02/24/1978 Years since quittin.9 Smokeless tobacco: Never Tobacco comments: just in college Vaping Use Vaping Use: Never used Substance Use Topics Alcohol use: No Drug use: No FAMILY HISTORY: FAMILY HISTORY FAMILY HISTORY Problem Relation Age of Onset Blood Disease Mother Cancer Father 64 Lung other (Liver condition) Brother No Known Problems Maternal Grandmother No Known Problems Maternal Grandfather No Known Problems Paternal Grandmother No Known Problems Paternal Grandfather No Known Problems Daughter No Known Problems Son No Known Problems Son REVIEW OF SYMPTOMS: The review of systems data was entered by the nurse and reviewed by ar Nursing Notes: Jacqueline Milton LPN 01/17/2022 8:25 AM Signed REVIEW OF SYSTEMS: General: The patient denies fatigue, denies weight loss, denies weight gain, denies feeling hot, and denies feelings of cold. Eyes: The patient denies glaucoma, denies eye injury/surgery, does not wear glasses or contacts. Ear/Nose/Throat: The patient denies allergies, denies hayfever, denies ear infections, and denies bloody noses. Cardiovascular: The patient denies chest pain, denies heart disease, denies high blood pressure,denies cardiac stent, denies prior heart attack, denies irregular heart beat, NOTES high cholesterol, denies poor circulation, denies heart failure, other cardiac issues, denies claudication, denies cold feet, denies peripheral arterial stent. Respiratory: The patient denies tuberculosis, denies pneumonia, denies frequent cough, denies pulmonary embolism, denies shortness of breath, and denies coughing up blood. Gastrointestinal: The patient denies difficulty swallowing, denies acid reflux, denies ulcers, denies vomiting, denies jaundice/hepatitis, denies gallbladder problems, denies black or tarry stools, denies hemorrhoids, denies bleeding from rectum, denies diverticulitis, denies constipation, denies diarrhea, denies loss of stool control, and denies hernias. Kidney/Bladder: The patient denies kidney stones, denies urine infections, and denies bloody urine. Skin: The patient denies a history of skin cancer, denies bleeding/changing moles, and denies a history of skin rash. Neurologic: The patient denies a history of epilepsy/convulsions, denies headaches, denies head/spinal injuries, and denies stroke/TIA. Psychiatric: The patient denies psychiatric medications, denies depression, and denies voices, denies substance abuse. Endocrine: The patient NOTES thyroid disorders, denies diabetes, and denies hormonal problems. Hematologic: The patient denies a history of bruising, denies bleeding, and denies anemia, denies blood clots. Infections: The patient denies a history of measles and mumps, denies rheumatic fever, and denies sexually transmitted diseases. Musculoskeletal: The patient denies back pain/injury, denies back problems, denies sciatica, denies knee/foot trouble, denies arthritis, or denies gout. When was patient's last Mammogram screening? N/A Last Colonoscopy: 02/2017 Jacqueline Milton LPN I have confirmed and edited as necessary, the PFSH and ROS obtained by others. Thania Ramos PA-C PHYSICAL EXAMINATION: General: The patient is 66 year old male, well nourished, well hydrated in no acute distress. The patient is oriented to time, place, and person. VITALS: Blood pressure 138/98, pulse 102, temperature 36.3 C (97.4 F), temperature source Temporal, resp. rate 14, height 188 cm (6' 2 ), weight 94.3 kg (208 lb), SpO2 100 %. Body mass index is 26.71 kg/m . HEENT: Normal cephalic, ataumatic, pupils are equally round, sclera are anicteric, mucous membranes are moist, oropharynx is clear. Neck has no masses, asymmetry or lymphadenopathy. Respiratory: Clear to auscultation and percussion. Normal respiratory excursion and pattern. Cardiac: Examination is regular rate and rhythm. Normal S1/S2 Abdominal exam: Soft, nontender, with no palpable masses. No hepatosplenomegaly. No palpable hernias. Extremities: no clubbing, cyanosis or edema. No adenopathy. LABORATORY VALUES: As Noted RADIOLOGIC STUDIES: As Noted Assessment IMPRESSION: history of colon polyps, encounter for high-risk surveillance colonoscopy PLAN: I have reviewed my findings with the surgeon. Will plan for lower endoscopy. We discussed the risks and benefits of the planned endoscopy. I have informed the patient that complications can occur including failure to complete the endoscopy and perforation. The patient had the opportunity to ask questions concerning the planned endoscopy. My staff has also explained the procedure to the patient in understandable terms and has given the patient printed material concerning the procedure. The patient freely consents to surgery. The patient was offered a surgery/procedure at a [facility] facility. I have counseled the patient regarding the risk of exposure to and/or potential harm posed by the COVID-19 virus with having a surgery/procedure at this time versus the risk of delaying the surgery/procedure. It is not possible to know either the risk of delaying the surgery or procedure or chance of getting an infection with perfect accuracy, but a joint decision was made between the patient and myself to proceed at this time with endoscopy. I plan to use Golytely bowel preparation Diagnoses: (Z12.11) Encounter for screening for malignant neoplasm of colon (primary encounter diagnosis) (Z86.010) Personal history of colonic polyps 2 I spent a total of 32 minutes on the date of the service which included preparing to see the patient, [id number] patient care, completing clinical documentation, obtaining and/or reviewing separately obtained history, performing a medically appropriate examination, counseling and educating the patient/family/caregiver, and ordering medications, tests, or procedures. Thania Ramos PA-C Images from the original note were not included. HISTORY AND PHYSICAL Perez Kincaid 1955 REFERRING PHYSICIAN: Self CHIEF COMPLAINT: No chief complaint on file. HPI: The patient is a 66 year old male referred for endoscopy. Perez notes a history of colon polyps and is due for high-risk surveillance colonoscopy. Patient denies any change in bowel habits, weight changes, blood in stools, black tarry stools or abdominal pain. Denies family history of colon issues. The patient notes no upper GI complaints. Perez has undergone prior endoscopy. Last colonoscopy 02/24/[address] Melendez under conscious sedation with piecemeal removal of a benign polyp in the distal transverse colon. Patient denies chest pain, shortness of breath or recent hospitalizations. Denies problems with sedation in the past. PAST MEDICAL HISTORY PAST MEDICAL HISTORY Diagnosis Date Benign neoplasm of colon 03/13/2014 Colon polyp 02/2011 DDD (degenerative disc disease), lumbar intermittent back pain Herniation of cervical intervertebral disc with radiculopathy 03/19/2015 Hyperlipidemia Hypothyroidism Snoring Spinal stenosis in cervical region 03/19/2015 SVT (supraventricular tachycardia) (HCC) 08/14/2014 PAST SURGICAL HISTORY PAST SURGICAL HISTORY Procedure Laterality Date ARTHROSCOPY KNEE SUBCHONDROPLAST Right 05/04/2020 COLONOSCOPY & POLYPECTOMY 02/2011 repeat due 2013 COLONOSCOPY FLX DX W/COLLJ SPEC WHEN PFRMD 02/24/2017 benign polyp, repeat in 5 years COLSC FLX W/RMVL OF TUMOR POLYP LESION SNARE TQ 03/04/2014 tubular adenoma, repeat in 2016 CURRENT MEDICATIONS Current Outpatient Medications Medication Sig levothyroxine (SYNTHROID) 175 mcg tablet Take 1 tablet by mouth daily before breakfast. atorvastatin (LIPITOR) 10 mg tablet Take 1 tablet by mouth daily at bedtime. No current facility-administered medications for this visit. ALLERGIES: Patient has no known allergies. PERSONAL HISTORY: SOCIAL HISTORY Social History Tobacco Use Smoking status: Former Years: 3.00 Types: Cigarettes, Cigars Quit date: 02/24/1978 Years since quittin.9 Smokeless tobacco: Never Tobacco comments: just in college Vaping Use Vaping Use: Never used Substance Use Topics Alcohol use: No Drug use: No FAMILY HISTORY: FAMILY HISTORY FAMILY HISTORY Problem Relation Age of Onset Blood Disease Mother Cancer Father 64 Lung other (Liver condition) Brother No Known Problems Maternal Grandmother No Known Problems Maternal Grandfather No Known Problems Paternal Grandmother No Known Problems Paternal Grandfather No Known Problems Daughter No Known Problems Son No Known Problems Son REVIEW OF SYMPTOMS: The review of systems data was entered by the nurse and reviewed by me Nursing Notes: Jacqueline Yoan LOVE 01/17/2022 8:25 AM Signed REVIEW OF SYSTEMS: General: The patient denies fatigue, denies weight loss, denies weight gain, denies feeling hot, and denies feelings of cold. Eyes: The patient denies glaucoma, denies eye injury/surgery, does not wear glasses or contacts. Ear/Nose/Throat: The patient denies allergies, denies hayfever, denies ear infections, and denies bloody noses. Cardiovascular: The patient denies chest pain, denies heart disease, denies high blood pressure,denies cardiac stent, denies prior heart attack, denies irregular heart beat, NOTES high cholesterol, denies poor circulation, denies heart failure, other cardiac issues, denies claudication, denies cold feet, denies peripheral arterial stent. Respiratory: The patient denies tuberculosis, denies pneumonia, denies frequent cough, denies pulmonary embolism, denies shortness of breath, and denies coughing up blood. Gastrointestinal: The patient denies difficulty swallowing, denies acid reflux, denies ulcers, denies vomiting, denies jaundice/hepatitis, denies gallbladder problems, denies black or tarry stools, denies hemorrhoids, denies bleeding from rectum, denies diverticulitis, denies constipation, denies diarrhea, denies loss of stool control, and denies hernias. Kidney/Bladder: The patient denies kidney stones, denies urine infections, and denies bloody urine. Skin: The patient denies a history of skin cancer, denies bleeding/changing moles, and denies a history of skin rash. Neurologic: The patient denies a history of epilepsy/convulsions, denies headaches, denies head/spinal injuries, and denies stroke/TIA. Psychiatric: The patient denies psychiatric medications, denies depression, and denies voices, denies substance abuse. Endocrine: The patient NOTES thyroid disorders, denies diabetes, and denies hormonal problems. Hematologic: The patient denies a history of bruising, denies bleeding, and denies anemia, denies blood clots. Infections: The patient denies a history of measles and mumps, denies rheumatic fever, and denies sexually transmitted diseases. Musculoskeletal: The patient denies back pain/injury, denies back problems, denies sciatica, denies knee/foot trouble, denies arthritis, or denies gout. When was patient's last Mammogram screening? N/A Last Colonoscopy: 02/2017 Jacqueline Milton LPN I have confirmed and edited as necessary, the PFSH and ROS obtained by others. Thania Ramos PA-C PHYSICAL EXAMINATION: General: The patient is 66 year old male, well nourished, well hydrated in no acute distress. The patient is oriented to time, place, and person. VITALS: Blood pressure 138/98, pulse 102, temperature 36.3 C (97.4 F), temperature source Temporal, resp. rate 14, height 188 cm (6' 2 ), weight 94.3 kg (208 lb), SpO2 100 %. Body mass index is 26.71 kg/m . HEENT: Normal cephalic, ataumatic, pupils are equally round, sclera are anicteric, mucous membranes are moist, oropharynx is clear. Neck has no masses, asymmetry or lymphadenopathy. Respiratory: Clear to auscultation and percussion. Normal respiratory excursion and pattern. Cardiac: Examination is regular rate and rhythm. Normal S1/S2 Abdominal exam: Soft, nontender, with no palpable masses. No hepatosplenomegaly. No palpable hernias. Extremities: no clubbing, cyanosis or edema. No adenopathy. LABORATORY VALUES: As Noted RADIOLOGIC STUDIES: As Noted Assessment IMPRESSION: history of colon polyps, encounter for high-risk surveillance colonoscopy PLAN: I have reviewed my findings with the surgeon. Will plan for lower endoscopy. We discussed the risks and benefits of the planned endoscopy. I have informed the patient that complications can occur including failure to complete the endoscopy and perforation. The patient had the opportunity to ask questions concerning the planned endoscopy. My staff has also explained the procedure to the patient in understandable terms and has given the patient printed material concerning the procedure. The patient freely consents to surgery. The patient was offered a surgery/procedure at a [facility] facility. I have counseled the patient regarding the risk of exposure to and/or potential harm posed by the COVID-19 virus with having a surgery/procedure at this time versus the risk of delaying the surgery/procedure. It is not possible to know either the risk of delaying the surgery or procedure or chance of getting an infection with perfect accuracy, but a joint decision was made between the patient and myself to proceed at this time with endoscopy. I plan to use Golytely bowel preparation Diagnoses: (Z12.11) Encounter for screening for malignant neoplasm of colon (primary encounter diagnosis) (Z86.010) Personal history of colonic polyps 2 I spent a total of 32 minutes on the date of the service which included preparing to see the patient, [id number] patient care, completing clinical documentation, obtaining and/or reviewing separately obtained history, performing a medically appropriate examination, counseling and educating the patient/family/caregiver, and ordering medications, tests, or procedures. Thania Ramos PA-C documented in this encounter [facility] 01-17-2022 History of Presen t illness Narrative HISTORY AND PHYSICAL Perez Kincaid 1955 REFERRING PHYSICIAN: Self CHIEF COMPLAINT: No chief complaint on file. HPI: The patient is a 66 year old male referred for endoscopy. Perez notes a history of colon polyps and is due for high-risk surveillance colonoscopy. Patient denies any change in bowel habits, weight changes, blood in stools, black tarry stools or abdominal pain. Denies family history of colon issues. The patient notes no upper GI complaints. Perez has undergone prior endoscopy. Last colonoscopy 02/24/[address] Melendez under conscious sedation with piecemeal removal of a benign polyp in the distal transverse colon. Patient denies chest pain, shortness of breath or recent hospitalizations. Denies problems with sedation in the past. PAST MEDICAL HISTORY Diagnosis Date Benign neoplasm of colon 03/13/2014 Colon polyp 02/2011 DDD (degenerative disc disease), lumbar intermittent back pain Herniation of cervical intervertebral disc with radiculopathy 03/19/2015 Hyperlipidemia Hypothyroidism Snoring Spinal stenosis in cervical region 03/19/2015 SVT (supraventricular tachycardia) (HCC) 08/14/2014 PAST SURGICAL HISTORY Procedure Laterality Date ARTHROSCOPY KNEE SUBCHONDROPLAST Right 05/04/2020 COLONOSCOPY & POLYPECTOMY 02/2011 repeat due 2013 COLONOSCOPY FLX DX W/COLLJ SPEC WHEN PFRMD 02/24/2017 benign polyp, repeat in 5 years COLSC FLX W/RMVL OF TUMOR POLYP LESION SNARE TQ 03/04/2014 tubular adenoma, repeat in 2016 Current Outpatient Medications Medication Sig levothyroxine (SYNTHROID) 175 mcg tablet Take 1 tablet by mouth daily before breakfast. atorvastatin (LIPITOR) 10 mg tablet Take 1 tablet by mouth daily at bedtime. No current facility-administered medications for this visit. ALLERGIES: Patient has no known allergies. PERSONAL HISTORY: Social History Tobacco Use Smoking status: Former Years: 3.00 Types: Cigarettes, Cigars Quit date: 02/24/1978 Years since quittin.9 Smokeless tobacco: Never Tobacco comments: just in college Vaping Use Vaping Use: Never used Substance Use Topics Alcohol use: No Drug use: No FAMILY HISTORY: FAMILY HISTORY Problem Relation Age of Onset Blood Disease Mother Cancer Father 64 Lung other (Liver condition) Brother No Known Problems Maternal Grandmother No Known Problems Maternal Grandfather No Known Problems Paternal Grandmother No Known Problems Paternal Grandfather No Known Problems Daughter No Known Problems Son No Known Problems Son REVIEW OF SYMPTOMS: The review of systems data was entered by the nurse and reviewed by ar Nursing Notes: Jacqueline Milton LPN 01/17/2022 8:25 AM Signed REVIEW OF SYSTEMS: General: The patient denies fatigue, denies weight loss, denies weight gain, denies feeling hot, and denies feelings of cold. Eyes: The patient denies glaucoma, denies eye injury/surgery, does not wear glasses or contacts. Ear/Nose/Throat: The patient denies allergies, denies hayfever, denies ear infections, and denies bloody noses. Cardiovascular: The patient denies chest pain, denies heart disease, denies high blood pressure,denies cardiac stent, denies prior heart attack, denies irregular heart beat, NOTES high cholesterol, denies poor circulation, denies heart failure, other cardiac issues, denies claudication, denies cold feet, denies peripheral arterial stent. Respiratory: The patient denies tuberculosis, denies pneumonia, denies frequent cough, denies pulmonary embolism, denies shortness of breath, and denies coughing up blood. Gastrointestinal: The patient denies difficulty swallowing, denies acid reflux, denies ulcers, denies vomiting, denies jaundice/hepatitis, denies gallbladder problems, denies black or tarry stools, denies hemorrhoids, denies bleeding from rectum, denies diverticulitis, denies constipation, denies diarrhea, denies loss of stool control, and denies hernias. Kidney/Bladder: The patient denies kidney stones, denies urine infections, and denies bloody urine. Skin: The patient denies a history of skin cancer, denies bleeding/changing moles, and denies a history of skin rash. Neurologic: The patient denies a history of epilepsy/convulsions, denies headaches, denies head/spinal injuries, and denies stroke/TIA. Psychiatric: The patient denies psychiatric medications, denies depression, and denies voices, denies substance abuse. Endocrine: The patient NOTES thyroid disorders, denies diabetes, and denies hormonal problems. Hematologic: The patient denies a history of bruising, denies bleeding, and denies anemia, denies blood clots. Infections: The patient denies a history of measles and mumps, denies rheumatic fever, and denies sexually transmitted diseases. Musculoskeletal: The patient denies back pain/injury, denies back problems, denies sciatica, denies knee/foot trouble, denies arthritis, or denies gout. When was patient's last Mammogram screening? N/A Last Colonoscopy: 02/2017 Jacqueline Milton LPN I have confirmed and edited as necessary, the PFSH and ROS obtained by others. Thania Ramos PA-C PHYSICAL EXAMINATION: General: The patient is 66 year old male, well nourished, well hydrated in no acute distress. The patient is oriented to time, place, and person. VITALS: Blood pressure 138/98, pulse 102, temperature 36.3 C (97.4 F), temperature source Temporal, resp. rate 14, height 188 cm (6' 2 ), weight 94.3 kg (208 lb), SpO2 100 %. Body mass index is 26.71 kg/m . HEENT: Normal cephalic, ataumatic, pupils are equally round, sclera are anicteric, mucous membranes are moist, oropharynx is clear. Neck has no masses, asymmetry or lymphadenopathy. Respiratory: Clear to auscultation and percussion. Normal respiratory excursion and pattern. Cardiac: Examination is regular rate and rhythm. Normal S1/S2 Abdominal exam: Soft, nontender, with no palpable masses. No hepatosplenomegaly. No palpable hernias. Extremities: no clubbing, cyanosis or edema. No adenopathy. LABORATORY VALUES: As Noted RADIOLOGIC STUDIES: As Noted Assessment IMPRESSION: history of colon polyps, encounter for high-risk surveillance colonoscopy PLAN: I have reviewed my findings with the surgeon. Will plan for lower endoscopy. We discussed the risks and benefits of the planned endoscopy. I have informed the patient that complications can occur including failure to complete the endoscopy and perforation. The patient had the opportunity to ask questions concerning the planned endoscopy. My staff has also explained the procedure to the patient in understandable terms and has given the patient printed material concerning the procedure. The patient freely consents to surgery. The patient was offered a surgery/procedure at a [facility] facility. I have counseled the patient regarding the risk of exposure to and/or potential harm posed by the COVID-19 virus with having a surgery/procedure at this time versus the risk of delaying the surgery/procedure. It is not possible to know either the risk of delaying the surgery or procedure or chance of getting an infection with perfect accuracy, but a joint decision was made between the patient and myself to proceed at this time with endoscopy. I plan to use Golytely bowel preparation Diagnoses: (Z12.11) Encounter for screening for malignant neoplasm of colon (primary encounter diagnosis) (Z86.010) Personal history of colonic polyps 2 I spent a total of 32 minutes on the date of the service which included preparing to see the patient, [id number] patient care, completing clinical documentation, obtaining and/or reviewing separately obtained history, performing a medically appropriate examination, counseling and educating the patient/family/caregiver, and ordering medications, tests, or procedures. Thania Ramos PA-C documented in this encounter [facility] 01-17-2022 Nurse Note REVIEW OF SYSTEMS: General: The patient denies fatigue, denies weight loss, denies weight gain, denies feeling hot, and denies feelings of cold. Eyes: The patient denies glaucoma, denies eye injury/surgery, does not wear glasses or contacts. Ear/Nose/Throat: The patient denies allergies, denies hayfever, denies ear infections, and denies bloody noses. Cardiovascular: The patient denies chest pain, denies heart disease, denies high blood pressure,denies cardiac stent, denies prior heart attack, denies irregular heart beat, NOTES high cholesterol, denies poor circulation, denies heart failure, other cardiac issues, denies claudication, denies cold feet, denies peripheral arterial stent. Respiratory: The patient denies tuberculosis, denies pneumonia, denies frequent cough, denies pulmonary embolism, denies shortness of breath, and denies coughing up blood. Gastrointestinal: The patient denies difficulty swallowing, denies acid reflux, denies ulcers, denies vomiting, denies jaundice/hepatitis, denies gallbladder problems, denies black or tarry stools, denies hemorrhoids, denies bleeding from rectum, denies diverticulitis, denies constipation, denies diarrhea, denies loss of stool control, and denies hernias. Kidney/Bladder: The patient denies kidney stones, denies urine infections, and denies bloody urine. Skin: The patient denies a history of skin cancer, denies bleeding/changing moles, and denies a history of skin rash. Neurologic: The patient denies a history of epilepsy/convulsions, denies headaches, denies head/spinal injuries, and denies stroke/TIA. Psychiatric: The patient denies psychiatric medications, denies depression, and denies voices, denies substance abuse. Endocrine: The patient NOTES thyroid disorders, denies diabetes, and denies hormonal problems. Hematologic: The patient denies a history of bruising, denies bleeding, and denies anemia, denies blood clots. Infections: The patient denies a history of measles and mumps, denies rheumatic fever, and denies sexually transmitted diseases. Musculoskeletal: The patient denies back pain/injury, denies back problems, denies sciatica, denies knee/foot trouble, denies arthritis, or denies gout. When was patient's last Mammogram screening? N/A Last Colonoscopy: 02/2017 Jacqueline Milton LPN documented in this encounter [facility] 10-30-2021 History of Presen t illness Narrative Subjective HPI Nontoxic-appearing male presents urgent care chief complaint clogged sensation left ear. Duration of symptoms 5 days. Associated symptoms listed above. Patient states he does have some sinus drainage was seen at urgent care 5 days ago placed on amoxicillin. Has not noticed any improvement. Denies any pain. States most bothersome symptom is clogged sensation in ears and nasal drainage. Has not tried any other OTC medications today. Denies any fever body aches chills productive cough chest pain shortness of breath pleuritic pain hemoptysis or change in bowel or bladder habits. Past medical history prescription medication use allergies reviewed. .Patient presents with: Ear Problem: Left ear clogged, on amoxicillin x 5 days with no improvement PAST MEDICAL HISTORY Diagnosis Date Benign neoplasm of colon 03/13/2014 Colon polyp 02/2011 DDD (degenerative disc disease), lumbar intermittent back pain Herniation of cervical intervertebral disc with radiculopathy 03/19/2015 Hyperlipidemia Hypothyroidism Snoring Spinal stenosis in cervical region 03/19/2015 SVT (supraventricular tachycardia) (HCC) 08/14/2014 PAST SURGICAL HISTORY Procedure Laterality Date ARTHROSCOPY KNEE SUBCHONDROPLAST Right 05/04/2020 COLONOSCOPY & POLYPECTOMY 02/2011 repeat due 2013 COLONOSCOPY FLX DX W/COLLJ SPEC WHEN PFRMD 02/24/2017 benign polyp, repeat in 5 years COLSC FLX W/RMVL OF TUMOR POLYP LESION SNARE TQ 03/04/2014 tubular adenoma, repeat in 2016 ALLERGIES Patient has no known allergies. MEDICATIONS levothyroxine (SYNTHROID) 175 mcg tablet Take 1 tablet by mouth daily before breakfast. atorvastatin (LIPITOR) 10 mg tablet Take 1 tablet by mouth daily at bedtime. FAMILY HISTORY Problem Relation Age of Onset Blood Disease Mother Cancer Father 64 Lung Social History Tobacco Use Smoking status: Former Years: 3.00 Types: Cigarettes, Cigars Quit date: 02/24/1978 Years since quittin.7 Smokeless tobacco: Never Tobacco comments: just in college Substance Use Topics Alcohol use: No Drug use: No BP 136/82 Pulse 92 Temp 36.3 C (97.4 F) Resp 18 Wt 91.2 kg (201 lb) SpO2 99% BMI 25.81 kg/m Review of Systems Constitutional: Negative for chills, fever and malaise/fatigue. HENT: Negative for congestion, ear discharge, ear pain, hearing loss, sinus pain and sore throat. Eyes: Negative for blurred vision, pain, discharge and redness. Respiratory: Negative for cough, hemoptysis, sputum production, shortness of breath, wheezing and stridor. Cardiovascular: Negative for chest pain. Gastrointestinal: Negative for abdominal pain, diarrhea, nausea and vomiting. Musculoskeletal: Negative for myalgias. Skin: Negative for itching and rash. Neurological: Negative for dizziness and headaches. Objective Physical Exam Constitutional: General: He is not in acute distress. Appearance: He is not diaphoretic. HENT: Head: Normocephalic. Jaw: No trismus, tenderness or pain on movement. Right Ear: Hearing, tympanic membrane, ear canal and external ear normal. No mastoid tenderness. Left Ear: Tympanic membrane, ear canal and external ear normal. Decreased hearing noted. No mastoid tenderness. Ears: Comments: Clear fluid noted behind bilateral TMs. No evidence of bacterial infection. Mouth/Throat: Mouth: Mucous membranes are moist. Pharynx: Oropharynx is clear. No oropharyngeal exudate or posterior oropharyngeal erythema. Eyes: Conjunctiva/sclera: Conjunctivae normal. Pupils: Pupils are equal, round, and reactive to light. Cardiovascular: Rate and Rhythm: Normal rate and regular rhythm. Heart sounds: Normal heart sounds. Pulmonary: Effort: Pulmonary effort is normal. No tachypnea, accessory muscle usage or respiratory distress. Breath sounds: Normal breath sounds. No stridor. No wheezing, rhonchi or rales. Abdominal: Palpations: Abdomen is soft. Tenderness: There is no abdominal tenderness. There is no guarding or rebound. Musculoskeletal: Cervical back: Normal range of motion and neck supple. No rigidity or tenderness. Lymphadenopathy: Cervical: No cervical adenopathy. Skin: General: Skin is warm and dry. Neurological: Mental Status: He is alert and oriented to person, place, and time. ASSESSMENT/PLAN: 1. Eustachian tube dysfunction, bilateral - ICD9: 381.81, ICD10: H69.83 Patient diagnosed with eustachian tube dysfunction. No evidence of bacterial infection. Will use antihistamines and Flonase as discussed. Patient was educated on supportive therapies. Patient will follow up with primary care provider as needed. Patient was instructed to immediately proceed to emergency room for any new, worsening, or symptoms lasting longer than anticipated. The patient's clinical presentation is otherwise unremarkable at this time. Based on exam and clinical finding, the patient is stable for discharge. Plan of care was discussed with patient. Patient verbalizes understanding and agrees to plan of care. This note was generated using [employer] software. It may contain errors in wording, punctuation, or spelling. Matthieu Espinosa APRN.NICOL documented in this encounter [facility] 10-26-2021 Note Patient Education Ma terials Follows: Otitis Media, Adult Otitis media occurs when there is inflammation and fluid in the middle ear with signs and symptoms of an acute infection. The middle ear is a part of the ear that contains bones for hearing as well as air that helps send sounds to the brain. When infected fluid builds up in this space, it causes pressure and can lead to an ear infection. The eustachian tube connects the middle ear to the back of the nose (nasopharynx) and normally allows air into the middle ear. If the eustachian tube becomes blocked, fluid can build up and become infected. What are the causes? This condition is caused by a blockage in the eustachian tube. This can be caused by mucus or by swelling of the tube. Problems that can cause a blockage include: ? A cold or other upper respiratory infection. ? Allergies. ? An irritant, such as tobacco smoke. ? Enlarged adenoids. The adenoids are areas of soft tissue located high in the back of the throat, behind the nose and the roof of the mouth. They are part of the body's defense system (immune system). ? A mass in the nasopharynx. ? Damage to the ear caused by pressure changes (barotrauma). What increases the risk? You are more likely to develop this condition if you: ? Smoke or are exposed to tobacco smoke. ? Have an opening in the roof of your mouth (cleft palate). ? Have gastroesophageal reflux. ? Have an immune system disorder. What are the signs or symptoms? Symptoms of this condition include: ? Ear pain. ? Fever. ? Decreased hearing. ? Tiredness (lethargy). ? Fluid leaking from the ear, if the eardrum is ruptured or has burst. ? Ringing in the ear. How is this diagnosed? This condition is diagnosed with a physical exam. During the exam, your health care provider will use an instrument called an otoscope to look in your ear and check for redness, swelling, and fluid. He or she will also ask about your symptoms. Your health care provider may also order tests, such as: ? A pneumatic otoscopy. This is a test to check the movement of the eardrum. It is done by squeezing a small amount of air into the ear. ? A tympanogram. This is a test that shows how well the eardrum moves in response to air pressure in the ear canal. It provides a graph for your health care provider to review. How is this treated? This condition can go away on its own within 3?5 days. But if the condition is caused by a bacterial infection and does not go away on its own, or if it keeps coming back, your health care provider may: ? Prescribe antibiotic medicine to treat the infection. ? Prescribe or recommend medicines to control pain. Follow these instructions at home: ? Take [id number] and prescription medicines only as told by your health care provider. ? If you were prescribed an antibiotic medicine, take it as told by your health care provider. Do not stop taking the antibiotic even if you start to feel better. ? Keep all follow-up visits. This is important. Contact a health care provider if: ? You have bleeding from your nose. ? There is a lump on your neck. ? You are not feeling better in 5 days. ? You feel worse instead of better. Get help right away if: ? You have severe pain that is not controlled with medicine. ? You have swelling, redness, or pain around your ear. ? You have stiffness in your neck. ? A part of your face is not moving (paralyzed). ? The bone behind your ear (mastoid bone) is tender when you touch it. ? You develop a severe headache. Summary ? Otitis media is redness, soreness, and swelling of the middle ear, usually resulting in pain and decreased hearing. ? This condition can go away on its own within 3?5 days. ? If the problem does not go away in 3?5 days, your health care provider may give you medicines to treat the infection. ? If you were prescribed an antibiotic medicine, take it as told by your health care provider. ? Follow all instructions that were given to you by your health care provider. This information is not intended to replace advice given to you by your health care provider. Make sure you discuss any questions you have with your health care provider. Document Revised: 05/31/2021 Document Reviewed: 05/31/2021 [place] Patient Education ? 2021 [employer]. [facility] 10-22-2021 Instructions Sherif Wang MD - 10/22/2021 8:38 AM EDT CALL November TO SET UP COLONOSCOPY. CALL FOR BLOOD WORK BEFORE YOUR FOLLOW UP. MONITOR BLOOD PRESSURE. RETURN SOONER IF STAYING >130 CONSISTENTLY. Have you ever planned for future healthcare decisions with a power of compliance attorney, living will, or advance directives? Yes. Have you shared those records with your doctor? No and No. Please bring a copy to your next appointment or email to documented in this encounter [facility] 10-22-2021 Nurse Note VISUAL ACUITY: Today's exam: Vision Correction? Contacts: RIGHT EYE: 20/20 LEFT EYE: 20/ 25 BOTH EYES: 20/20 documented in this encounter [facility] 10-22-2021 History of Presen t illness Narrative Medicare Yearly Visit Medical B eligibilty date 05/04/2018 Date of last exam 10/21/2020 PAST MEDICAL HISTORY Diagnosis Date Benign neoplasm of colon 03/13/2014 Colon polyp 02/2011 DDD (degenerative disc disease), lumbar intermittent back pain Herniation of cervical intervertebral disc with radiculopathy 03/19/2015 Hyperlipidemia Hypothyroidism Snoring Spinal stenosis in cervical region 03/19/2015 SVT (supraventricular tachycardia) (HCC) 08/14/2014 PAST SURGICAL HISTORY Procedure Laterality Date ARTHROSCOPY KNEE SUBCHONDROPLAST Right 05/04/2020 COLONOSCOPY & POLYPECTOMY 02/2011 repeat due 2013 COLONOSCOPY FLX DX W/COLLJ SPEC WHEN PFRMD 02/24/2017 benign polyp, repeat in 5 years COLSC FLX W/RMVL OF TUMOR POLYP LESION SNARE TQ 03/04/2014 tubular adenoma, repeat in 2016 ALLERGIES: Patient has no known allergies. Medications reviewed: Yes FAMILY HISTORY Problem Relation Age of Onset Blood Disease Mother Cancer Father 64 Lung SOCIAL HISTORY: Social History Tobacco Use Smoking status: Former Years: 3.00 Types: Cigarettes, Cigars Quit date: 02/24/1978 Years since quittin.6 Smokeless tobacco: Never Tobacco comments: just in college Substance Use Topics Alcohol use: No Drug use: No Perez works out regularly 6-7 times per week with walking and light weights. He watches his diet for sodium, low fat and low cholesterol most of the time. List of current specialists seen: Dr. Sotelo, [facility]. End of Live Planning discussed including patients advanced directive wishes: Yes I am willing to follow Perez's advanced directives. Copy needed. PHQ-2 / Depression screen He in the past two weeks denies having felt down, depressed, hopeless, or with little interest or pleasure in doing things. Functional Ability/Safety Screen 1. Was the patient's timed Up and Go test unsteady or longer than 30 seconds? No 2. Does the patient need help with the phone, transportation, shopping,preparing meals, housework, laundry, medications or managing money? No 3. Does your home have rugs in the hallway, lack of grab bars in the bathroom, lack of handrails on the stairs or have poor lighting? No Hearing Evaluation: normal PHYSICAL EXAM BP 138/74 Pulse 75 Temp 36.3 C (97.3 F) (Temporal Artery) Resp 12 Ht 188 cm (6' 2 ) Wt 90.3 kg (199 lb) SpO2 99% BMI 25.55 kg/m Alert and oriented X 3: YES There is no height or weight on file to calculate BMI. Visual acuity: see vision tab. Mini Cog done. Normal. ASSESSMENT/PLAN: 66 year old male The following prevention plan was discussed during the office visit and provided to the patient: - Vaccines recommended COVID-19 and Influenza in the fall. - Depression screening - Advanced Care Planning Sherif Wang MD This note was created using [employer]. Subjective Patient presents with: Medicare Wellness Exam Follow Up Perez Kincaid is a 66 year old male. He was doing well. His blood pressure was better at home. He was aware colonoscopy was due this February. Review of Systems Constitutional: Negative. Respiratory: Negative. Cardiovascular: Negative. Gastrointestinal: Negative. Genitourinary: Negative. Musculoskeletal: Negative. Neurological: Negative. ACTIVE PROBLEM LIST Hypothyroidism History of Colon Polyps Hyperlipidemia Benign Neoplasm of Colon Current Outpatient Medications Medication Sig levothyroxine (SYNTHROID) 175 mcg tablet Take 1 tablet by mouth daily before breakfast. atorvastatin (LIPITOR) 10 mg tablet Take 1 tablet by mouth daily at bedtime. No current facility-administered medications for this visit. Objective BP 138/74 Pulse 75 Temp 36.3 C (97.3 F) (Temporal Artery) Resp 12 Ht 188 cm (6' 2 ) Wt 90.3 kg (199 lb) SpO2 99% BMI 25.55 kg/m Physical Exam Constitutional: Appearance: Normal appearance. Cardiovascular: Rate and Rhythm: Normal rate and regular rhythm. Heart sounds: No murmur heard. No gallop. Pulmonary: Breath sounds: Normal breath sounds. Abdominal: Palpations: Abdomen is soft. Tenderness: There is no abdominal tenderness. Musculoskeletal: General: Normal range of motion. Right lower leg: No edema. Left lower leg: No edema. Neurological: General: No focal deficit present. Mental Status: He is alert. Assessment and Plan 1. Medicare annual wellness visit, subsequent - ICD9: V70.0, ICD10: Z00.00 (primary diagnosis) Other note. 2. Hypothyroidism, unspecified type - ICD9: 244.9, ICD10: E03.9 - check TSH today - continue current dose of Synthroid - TSH BLD 3. Hyperlipidemia, unspecified hyperlipidemia type - ICD9: 272.4, ICD10: E78.5 - to be determined upon return of lab results - Continue current medication. - Encouraged following a low carbohydrate, healthy oil intake diet. - COMP METABOLIC PANEL - LIPID PANEL BASIC 4. Benign neoplasm of colon, unspecified part of colon - ICD9: 211.3, ICD10: D12.6 Call January to set up open access colonoscopy. 5. Screening for prostate cancer - ICD9: V76.44, ICD10: Z12.5 - Risks/benefits of prostate cancer screening discussed. screening PSA ordered - PSA/PROSTSPECAG SCRN 6. Elevated blood pressure, situational - ICD9: 796.2, ICD10: R03.0 - Encouraged dietary sodium restriction/DASH diet - Recommend home blood pressure monitoring, to bring results in on next visit - Recheck, sooner if needed. - Reviewed risks of HTN and principles of treatment - Goal of BP <130/80 Sherif Wang MD documented in this encounter [facility] documented as of this encounter (statuses as of 10/22/2021) [facility] History of Past illness Narrative* Problem Noted Date Resolved Date Herniation of cervical inter vertebral disc with radiculopathy 03/19/2015 06/22/2016 Spinal stenosis in cervical region 03/19/2015 06/22/2015 SVT (supraventricular tachycardia) 08/14/2014 06/22/2016 Personal history of colonic polyps 11/07/2013 06/22/2015 Colon polyp 02/03/2011 06/22/2015 DDD (degenerative disc disease), lumbar 06/22/2015 Overview: intermittent back pain Snoring 06/22/2015 documented as of this encounter (statuses as of 10/30/2021) [facility] History of Past illness Narrative* Problem Noted Date Resolved Date Herniation of cervical inter vertebral disc with radiculopathy 03/19/2015 06/22/2016 Spinal stenosis in cervical region 03/19/2015 06/22/2015 SVT (supraventricular tachycardia) 08/14/2014 06/22/2016 Personal history of colonic polyps 11/07/2013 06/22/2015 Colon polyp 02/03/2011 06/22/2015 DDD (degenerative disc disease), lumbar 06/22/2015 Overview: intermittent back pain Snoring 06/22/2015 documented as of this encounter (statuses as of 01/18/2022) [facility] History of Past illness Narrative* Problem Noted Date Resolved Date Herniation of cervical inter vertebral disc with radiculopathy 03/19/2015 06/22/2016 Spinal stenosis in cervical region 03/19/2015 06/22/2015 SVT (supraventricular tachycardia) 08/14/2014 06/22/2016 Personal history of colonic polyps 11/07/2013 06/22/2015 Colon polyp 02/03/2011 06/22/2015 DDD (degenerative disc disease), lumbar 06/22/2015 Overview: intermittent back pain Snoring 06/22/2015 documented as of this encounter (statuses as of 05/10/2022) [facility] History of Past illness Narrative* Problem Noted Date Resolved Date Herniation of cervical inter vertebral disc with radiculopathy 03/19/2015 06/22/2016 Spinal stenosis in cervical region 03/19/2015 06/22/2015 SVT (supraventricular tachycardia) 08/14/2014 06/22/2016 Personal history of colonic polyps 11/07/2013 06/22/2015 Colon polyp 02/03/2011 06/22/2015 DDD (degenerative disc disease), lumbar 06/22/2015 Overview: intermittent back pain Snoring 06/22/2015 documented as of this encounter (statuses as of 09/01/2022) [facility] History of Past illness Narrative* Problem Noted Date Diagnosed Date Resolved Date Herniation of cervical inter vertebral disc with radiculopathy 03/19/2015 06/22/2016 Spinal stenosis in cervical region 03/19/2015 06/22/2015 SVT (supraventricular tachycardia) 08/14/2014 06/22/2016 Personal history of colonic polyps 11/07/2013 06/22/2015 Colon polyp 02/03/2011 06/22/2015 DDD (degenerative disc disease), lumbar 06/22/2015 Overview: intermittent back pain Snoring 06/22/2015 documented as of this encounter (statuses as of 10/15/2022) [facility] History of Past illness Narrative* Problem Noted Date Diagnosed Date Resolved Date Herniation of cervical inter vertebral disc with radiculopathy 03/19/2015 06/22/2016 Spinal stenosis in cervical region 03/19/2015 06/22/2015 SVT (supraventricular tachycardia) 08/14/2014 06/22/2016 Personal history of colonic polyps 11/07/2013 06/22/2015 Colon polyp 02/03/2011 06/22/2015 DDD (degenerative disc disease), lumbar 06/22/2015 Overview: intermittent back pain Snoring 06/22/2015 documented as of this encounter (statuses as of 10/24/2022) [facility] History of Past illness Narrative* Problem Noted Date Diagnosed Date Resolved Date Herniation of cervical inter vertebral disc with radiculopathy 03/19/2015 06/22/2016 Spinal stenosis in cervical region 03/19/2015 06/22/2015 SVT (supraventricular tachycardia) 08/14/2014 06/22/2016 Personal history of colonic polyps 11/07/2013 06/22/2015 Colon polyp 02/03/2011 06/22/2015 DDD (degenerative disc disease), lumbar 06/22/2015 Overview: intermittent back pain Snoring 06/22/2015 documented as of this encounter (statuses as of 01/09/2023) [facility] History of Past illness Narrative* Problem Noted Date Diagnosed Date Resolved Date Herniation of cervical inter vertebral disc with radiculopathy 03/19/2015 06/22/2016 Spinal stenosis in cervical region 03/19/2015 06/22/2015 SVT (supraventricular tachycardia) 08/14/2014 06/22/2016 Personal history of colonic polyps 11/07/2013 06/22/2015 Colon polyp 02/03/2011 06/22/2015 DDD (degenerative disc disease), lumbar 06/22/2015 Overview: intermittent back pain Snoring 06/22/2015 documented as of this encounter (statuses as of 02/07/2023) [facility] noteThere may be information available, but it has not been provided by the sender.[facility] Work Phone: Evaluation note* Diagnosis Medicare annual wellness visit, subsequent- Primary Routine general medical examination at a health care facility Hypothyroidism, unspecified type Hyperlipidemia, unspecified hyperlipidemia type Benign neoplasm of colon, unspecified part of colon Screening for prostate cancer Special screening for malignant neoplasm of prostate Elevated blood pressure, situational Elevated blood pressure reading without diagnosis of hypertension documented [facility] this encounter [facility]* Diagnosis Eustachian tube dysfunction, bilateral- Primary documented in this [facility]* Diagnosis Encounter for screening for malignant neoplasm of colon- Primary Special screening for malignant neoplasms, colon Personal history of colonic polyps [facility] Diagnosis Hypothyroidism, unspecified type Hyperlipidemia, unspecified hyperlipidemia type documented in this encounter [facility] note* Diagnosis Acute conjunctivitis of right eye, unspecified acute conjunctivitis type- Primary [facility] Diagnosis Hyperlipidemia, unspecified hyperlipidemia type- Primary Hypothyroidism, unspecified type documented in this encounter [facility] note* Diagnosis Medicare annual wellness visit, subsequent- Primary Routine general medical examination at a health care facility Hypothyroidism, unspecified type Hyperlipidemia, unspecified hyperlipidemia type [facility] Diagnosis History of colon polyps- Primary Personal history of colonic polyps History of colonic polyps Personal history of colonic polyps documented [facility] this encounter [facility] Instruction Description Start Date CompletedPatient advised to follow-up with Primary Care Physician for BMI management. [facility] Work Phone: Reason for referral (narrative)* Outpatient Procedure (Routine) - Closed Specialty Diagnoses / Procedures Referred By Med t Referred To Contact [facility] Diagnoses History of colonic polyps Procedures COLONOSCOPY SCREENING COLONOSCOPY FLX DX W/COLLJ SPEC WHEN PFRMD Thania Ramos PA-C [address] [place] [address] [facility] [address] [place] [address] Referral ID Status Reason Start Date Expiration Date V isits Requested Visits Authorized [id number] Closed Auto-Generate d Referral 01/17/2022 01/17/2023 1 1 [facility] N[facility]* Outpatient Procedure (Routine) - Closed Specialty Diagnoses / Procedures Referred By Med ramos Referred To Contact [facility] Diagnoses History of colonic polyps Procedures COLONOSCOPY SCREENING COLONOSCOPY FLX DX W/COLLJ SPEC WHEN PFRMD Thania Ramos PA-C [address] [place] [address] [facility] [address] [place] [address] Referral ID Status Reason Start Date Expiration Date V isits Requested Visits Authorized [id number] Closed Auto-Generate d Referral 01/17/2022 01/17/2023 1 1 [facility] Chief Complaint Chief Complaint Description Start Date right hip Preliminary chief co mplaint data, not yet signed by the author as of Advance Directives There may be information available, but it has not been provided by the sender. No Advanced Directives Records FoundNo Advanced Directives Records Found Family History There may be information available, but it has not been provided by the sender.No Family History Records FoundNo Family History Records Found Summary Purpose Medications Administered Section Inactive Administered Medications - up to 3 most recent administrations Medication Order MAR Action Action Date Dose Rate Site diphenhydrAMINE 12.5-50 mg injection (BENADRYL) 12.5-50 mg, INTRAVENOUS, DIRECTED, Starting on Mon03/29/22 at 1100, Until Mon03/29/22 at 1459, DOSING DIRECTED BY PHYSICIAN FOR PROCEDURAL SEDATION ONLY, Intraprocedure Given by LIP 03/29/2022 10:59 AM EST 50 mg fentaNYL 50 mcg/mL 25-100 mcg injection (SUBLIMAZE) 25-100 mcg, INTRAVENOUS, DIRECTED, Starting on Mon03/29/22 at 1100, Until Mon03/29/22 at 1459, DOSING DIRECTED BY PHYSICIAN FOR PROCEDURAL SEDATION ONLY, Intraprocedure Given by LIP 03/29/2022 10:56 AM EST 50 mcg Additional Source Comments Reason for Visit (unrecogniz ed section and content) Reason Comments Medicare Wellness Exam Follow Up Reason Comments Ear Problem Left ear clogged, on amoxicillin x 5 days with no improvement Reason Onset Date Comments Refill Request 05/09/2022 Reason Comments Eye Problem Irritated right eye x 1 day Reason Comments Medicare Wellness Exam Reason Onset Date Comments Transition Of Care 02/06/2023 Source Comments (unrecognize d section and content) In the event this informatio n is protected by the Federal Confidentiality of Alcohol and Drug Abuse Patient Records regulations: The Federal rules restrict any use of the information to criminally investigate or prosecute any alcohol or drug abuse patient.[facility] Hospital[facility] the event this information is protected by the Federal Confidentiality of Alcohol and Drug Abuse Patient Records regulations: The Federal rules restrict any use of the information to criminally investigate or prosecute any alcohol or drug abuse patient.[facility] HospitalIn the event this information is protected by the Federal Confidentiality of Alcohol and Drug Abuse Patient Records regulations: The Federal rules restrict any use of the information to criminally investigate or prosecute any alcohol or drug abuse patient.[facility] HospitalIn the event this information is protected by the Federal Confidentiality of Alcohol and Drug Abuse Patient Records regulations: The Federal rules restrict any use of the information to criminally investigate or prosecute any alcohol or drug abuse patient.[facility] Hospital[facility] the event this information is protected by the Federal Confidentiality of Alcohol and Drug Abuse Patient Records regulations: The Federal rules restrict any use of the information to criminally investigate or prosecute any alcohol or drug abuse patient.[facility] HospitalIn the event this information is protected by the Federal Confidentiality of Alcohol and Drug Abuse Patient Records regulations: The Federal rules restrict any use of the information to criminally investigate or prosecute any alcohol or drug abuse patient.[facility] HospitalIn the event this information is protected by the Federal Confidentiality of Alcohol and Drug Abuse Patient Records regulations: The Federal rules restrict any use of the information to criminally investigate or prosecute any alcohol or drug abuse patient.[facility] HospitalIn the event this information is protected by the Federal Confidentiality of Alcohol and Drug Abuse Patient Records regulations: The Federal rules restrict any use of the information to criminally investigate or prosecute any alcohol or drug abuse patient.[facility] Hospital[facility] the event this information is protected by the Federal Confidentiality of Alcohol and Drug Abuse Patient Records regulations: The Federal rules restrict any use of the information to criminally investigate or prosecute any alcohol or drug abuse patient.[facility] Care Teams (unrecognized sec tion and content) Digital Research Analyst Relationship Specialty Start Date End Date Sherif Wang MD [address] [place] [address] PCP - General Internal Medicine 11/13/14 Digital Research Analyst Relationship Specialty Start Date End Date Sherif Wang MD [address] [place] [address] PCP - General Internal Medicine 11/13/14 Digital Research Analyst Relationship Specialty Start Date End Date Sherif Wang MD [address] [place] [address] PCP - General Internal Medicine 11/13/14 Digital Research Analyst Relationship Specialty Start Date End Date Sherif Wang MD [address] [place] [address] PCP - General Internal Medicine 11/13/14 Digital Research Analyst Relationship Specialty Start Date End Date Sherif Wang MD [address] [facility] [address] PCP - General Internal Medicine 11/13/14 Digital Research Analyst Relationship Specialty Start Date End Date Sherif Wang MD [address] [facility] [place] [address] PCP - General Internal Medicine 11/13/14 Digital Research Analyst Relationship Specialty Start Date End Date Sherif Wang MD [address] [facility] [place] [id number] PCP - General Internal Medicine 11/13/14 (unrecognized sect ion and content) No Status Records FoundNo Status Records Found INFORMATION SOURCE (unrecogn ized section and content) DATE CREATED AUTHOR AUTHOR'S ORGANIZ ATION 02/08/2023 [facility] FOR RECORDS PERTAINING TO PATIENTS WHO ARE OR HAVE BEEN ENROLLED IN A CHEMICAL DEPENDENCY/SUBSTANCEABUSE PROGRAM, SOME INFORMATION MAY BE OMITTED. This clinical summary was aggregated from multiple sources. Caution should be exercised in using it in the provision of clinical care. This summary normalizes information from multiple sources, and as a consequence, information in this document may materially change the coding, format and clinical context of patient data. In addition, data may be omitted in some cases. CLINICAL DECISIONS SHOULD BE BASED ON THE PRIMARY CLINICAL RECORDS. [employer] [facility]. provides no warranty or guarantee of the accuracy or completeness of information in this document.
[2023-03-28 13:10] LABS: Hematocrit 44.4 % (40-54); Hemoglobin 14.8 g/dL (13.0-16.5); Mean Corp Hgb Conc 33.3 g/dL (32-36); Mean Corpuscular Hgb 30.7 pg (27.0-32.0); Mean Corpuscular Volume 92.1 fL (80-94); Mean Platelet Vol. 10.7 fl (6.2-12.0); Platelet Count 323 K/mm3 (150-450); RBC Distribution Width SD 47.2 fl (35.1-43.9); Red Blood Count 4.82 M/mm3 (4.6-6.2); White Blood Count 8.2 K/mm3 (4.4-11.0)
[2023-03-28 14:00] LABS: Anion Gap 3 (5-15); BUN 15 mg/dL (7-18); BUN/Creat Ratio 12.5 RATIO (10-20); Calcium,Total 9.5 mg/dL (8.5-10.1); Chloride 108 mmol/L (98-107); EST Glomerular Filtration Rate 64 mL/min (>60); Est Glom Filt Rate - Afr Amer 77 mL/min (>60); Glucose 110 mg/dL (74-106); Magnesium 2.7 mg/dL (1.6-2.6); Potassium 3.6 mmol/L (3.5-5.1); Sodium Level 140 mmol/L (136-145); Thyroid Stim Hormone (TSH) 5.08 uIU/mL (0.358-3.74)
== END | disposition home or self-care (01) ==
LOC: LAB 11:27
PROVIDERS: PCP Internal Medicine; Referring Provider Internal Medicine Cardiovascular Disease; Visit Provider Internal Medicine Cardiovascular Disease
DX: R00.0 Tachycardia, unspecified (principal)
CPT/HCPCS: 36415; 80048; 83735; 84443; 85027

== ENCOUNTER 2023-04-05 09:15 | Outpatient (RCR) | payer MEDICARE, SELFPAY ==
[2023-02-20 08:29] VITALS: BMI 25.8
--- NOTE | 2023-03-22 08:01 | PCM.CR.ITP ---
Exercise - Initial Assessment Visit Session #:: 6 Nutrition - Initial Assessment Weight Mgt (Other Care) Height: 6 ft 2 in Weight:: 211 lb BMI: 27.1 Psychosocial - Initial Assess Target Goals Target Goals Patient Health Questionnaire PHQ-9 Screening 30-Day Re-eval Assessment: 1. Little interest or pleasure in doing things: Not at all 2. Feeling down, depressed, or hopeless: Not at all 3. Trouble falling or staying asleep, or sleeping too much: Not at all 4. Feeling tired or having little energy: Not at all 5. Poor appetite or overeating: Not at all 6. Feeling bad about yourself -- or that you are a failure or have let yourself or your family down: Not at all 7. Trouble concentrating on things, such as reading the newspaper or watching television: Not at all 8. Moving or speaking so slowly that other people could have noticed. Or the opposite - being so fidgety or restless that you have been moving around a lot more than usual: Not at all 9. Thoughts that you would be better off , or of hurting yourself in some way: Not at all How difficult have these problems made it for you to do your work, take care of things at home, or get along with other people?: Not difficult at all Total Score: 0 Self-Efficacy 6-Item Scale 30-Day Re-eval Assessment: We would like to know how confident you are in doing certain activities. Please select your confidence level for: Fatigue Select Number: 10 Physical Discomfort or Pain Select Number: 9 Emotional Distress Select Number: 9 Other Symptoms or Health Problems Select Number: 9 Different Tasks and Activities Select Number: 9 Medication Select Number: 9 Total Score:: 9 Nutrition Survey Nutrition Survey Instructions Scoring Instructions Exercise - 30-day Assessment Visit Date of Eval: 03/22/23 Session #:: 6 Physician Prescribed Exercise Modalities: Treadmill, Rower, Airdyne and NuStep Frequency: 3x/week for 12 weeks [36 sessions] Intensity: 60-80% of age predicted maximum heart rate reserve Duration: 30 - 45 minutes Current METSs:: 3 Target Heart Rate:: 90-106 Current RPE:: 9-10 Maximum Excercise HR:: 111 Resting Blood Pressure: 120/82 Maximum Exercise Blood Pressure: 130/80 EKG Type: SR to ST rare pvc,pacs. Pt has WPW syndrome w/short MD intervals. Slight up Outcomes & Goals Goals:: Verbalizes understanding of THR, RPE & goal METS by session 6, Documents in home exercise log/reports 30 min aerobic 5 day/wk by DC, Demonstrates accurate pulse taking by DC and Other additional outcome/goals: see below Intervention & Plan Exercise Program Goals: Instruct on personal THR & RPE, Instruct on MET level & personal MET goal, Show patient to take own pulse /validate performance until accurate, Instruct on home exercise and Other additional plan/int 30-day Reassessments 30 day Reassessments:: Progressing Reassessment Notes & Comments:: RPE explained Physical Activity Home Exercise Physical Activity - Home Exercise: Safe Exercise, Warm-up, Self-monitoring, Cool-Down, Home Exercise > 30 min Daily and Sitting Time <3 hours/daily Outcomes & Goals Outcomes/Goals: Demonstrates correct Warm-up/exercise Cool-Down (S3) if = 2.5 METs, Verbalizes symptoms of exercise intolerance by Session 3 (S3), Demonstrate safe equipment use (S3) & follows exercise prescrition (6) and Other: See below Intervention & Plan Plan/Intervention: Instruct warm-up & cool-down if exercising at > 2 METs, Instruct on symptoms of exercise intolerance & actions to take, Instruct & monitor on saf, Assess intial functional capacity & safety risk and Other See below 30-day Reassessments 30 day Reassessments:: Progressing Reassessment Notes & Comments:: warm up explained Nutrition - 30-Day Assessment Program Goals Nutrition Program Goals Patient has diagnosis of Hyperlipidemia (ICD E78)?: No Visit Date of Eval: 03/22/23 Session #:: 6 Cholesterol/Lipids (Other Core Measures) Determine presence & major risk factors that modify LDL goal: Cigarette smoking, Hypertension or hypertensive medication, Low HDL cholesterol <40 mg/dL*, Family history of premature CHD in Male < 55 years: female <65 yearsFa and Age men > 45 years; women >/= 55 years Outcomes/Goals: Pt IDs own risk factors & lifestyle modifications by Session 10, Verbalizes symptoms of angina & response by session 3., Pt independently manages and Other Additional Outcomes/Goals: Intervention/Plan: Advocate for lipid panel cholesterol medication if applicable, Instruct on personal lipid levels & lipid goals/NCEP guidelines, Instruct on cholesterol and Other additional plan/int Referral to dietitian:: No 30-day Reassessments:: Progressing Reassessment Notes & Comments:: pt to attend nutrition class Diabetes (Other Core Measures) Diabetes Type: Not Applicable Weight Mgt (Other Care) Height: 6 ft 2 in Weight:: 211 lb BMI: 27.1 Diagnosis Overweight/Obesity BMI> 30% ICD-10 E66: No Diagnosis High BMI/Morbid Obesity BMI> 35% ICD-10 Z68: No Outcomes/Goals: Pt sets, maintains & shows weight loss goal & trend during rehab and Other additional outcomes/goals Intervention/Plan: Instruct on ideal BMI & set weight loss goal w/patient, Assist pt to ID & incorporate diet changes for weight loss by S9, Refer to Structured Weight Loss program as appropriate, Encourage goal of using 250-300dcal per session for weight loss and Other additional plan/interventions 30 day Reassessments:: Progressing Reassessment Notes & Comments:: pt to attend nutrition class Healthy Eating Habits Will attend diet classes:: Yes Outcomes/Goals:: Consume diet rich in vegs,fruits,whole grain/high fiber,fish,lean meat, Limit sat/trans fats,cholesterol & added salts & sugars and Other additional outcome/goals: Intervention/Plan:: Assess current eating habits and Other Additional plan/interventions 30-day Reassessments:: Progressing Reassessment Notes & Comments:: pt to attend nutrition class Education Gave educational materials for:: Signs & symptoms of hypoglycemia, Signs & symptoms of hyperglycemia, Relate diabetes to coronary artery disease and Healthy eating Nutrition - 60-Day Assessment Weight Mgt (Other Care) Height: 6 ft 2 in Weight:: 211 lb BMI: 27.1 Core - 30-Day Assessment Visit Date of Eval: 03/22/23 Session #:: 6 Medication Compliance Preventative Medication(s):: Aspirin, Statin/lipid and Beta lam H/O mental health issues: depression, anxiety, or addiction?: No Doesn?t believe in the benefits of treatment?: No Believes medications are unnecessary or harmful?: No Has a concern about medication side effects?: No Expresses concern over the cost of medications?: No Outcomes/Goals: Verbalizes medications,desired effect & common side effects @ DC, Pt self-reports following medication regimen, Keeps card in wallet w/medications listed by DC and Other additional outcome/goals: Interventions/plans: Instruct on medication effects & side effects, Review medication list w/patient every two weeks, Instruct importance of taking meds as ordered & assist problem solving and Other additional 30-day Reassessments:: Progressing Reassessment Notes & Comments:: pt encouraged to take his meds Tobacco Use Tobacco Use: Non-smoker How long ago did you quit using tobacco products?: Less than 6 months ago Do you use smokeless tobacco?: No Outcomes/Goals: Smoking cessation achieved or maintained by discharge, Identify aids/strategies for achieving smoking cessation by session 6 and Other additional outcome/goals Interventions/plan: Instruct on effects of smoking & provide smoking cessation resource, Assist pt to set quit date & provide encouragement, Assist pt to develop strategies to achieve/maintain quit date, Assist pt w/nicotine replacement & medication for cessation success and Other additional plan/interventions 30-day Reassessments:: Progressing Reassessment Notes & Comments:: pt has stopped smoking cigars Hypertension Resting Blood Pressure:: 120/82 [place] [employer] Hypertension Guidelines Peak Exercise Blood Pressure:: 130/80 Outcomes/Goals: Able to verbalize/achieve optimal blood pressure <130/80, Incorporates diet changes & exercise for blood pressure control by DC and Other additional outcomes/goals Interventions/plan: Instruct on optimal blood pressure, hypertension & medications, Instruct on effects of sodium, alcohol, stress, exercise &hypertension and Other additional plan/interventions 30 day Reassessments:: Progressing Reassessment Notes & Comments:: pt encouraged to take his meds Tobacco Cessation Referral Smoking Cessation Referral:: No Individual Education/Counseling:: No Education Schedule Given:: Yes Psychosocial - 30-Day Assess VIsit Date of Eval: 03/22/23 Session #:: 6 History of previous Mental disease:: No Target Goals Target Goals Outcomes/Goals: See list Psychosocial Outcomes/Goals:: ID's personal stressors & 2 strategies to manage stress by discharge and Other Additional outcome/goals: Intervention/Plan: See List Interventions/Plan:: Assess stressors,coping strategies & signs of derpression on admission, Instruct/assist pt to develop coping & personal stress Mgt strategies, Refer to Behavioral Health if appropriate, Refer to Physician if appropriate, Instruct patient to recognize signs & symptoms of depression, Instruct patient to recog and Other additional plan/intervention 30-day Reassessments: 30 day Reassessments:: Met Psychosocial - 60-Day Assess Target Goals Target Goals Outcomes/Goals: See list Psychosocial Outcomes/Goals:: ID's personal stressors & 2 strategies to manage stress by discharge and Other Additional outcome/goals: Psychosocial - 90-Day Assess Target Goals Target Goals Psychosocial - Final Assessmen Target Goals Target Goals Nutrition - 90-Day Assessment Weight Mgt (Other Care) Height: 6 ft 2 in Weight:: 211 lb BMI: 27.1 Nutrition - Final Assessment Weight Mgt (Other Care) Height: 6 ft 2 in Weight:: 211 lb BMI: 27.1
[2023-03-22 08:13] VITALS: BP 120/82; BMI 27.1
== END 2023-04-05 23:59 ==
LOC: CR 09:15
PROVIDERS: PCP Internal Medicine; Referring Provider Internal Medicine Cardiovascular Disease; Visit Provider Internal Medicine Cardiovascular Disease
DX: I21.4 Non-ST elevation (NSTEMI) myocardial infarction (principal); R07.9 Chest pain, unspecified; Z86.79 Personal history of other diseases of the circulatory system
CPT/HCPCS: 93798

== ENCOUNTER 2023-05-03 09:15 | Outpatient (RCR) | payer MEDICARE, SELFPAY ==
[2023-03-22 08:13] VITALS: BMI 27.1
[2023-04-06 00:09] VITALS: BP 120/82
--- NOTE | 2023-04-21 07:31 | PCM.CR.ITP ---
Nutrition - Initial Assessment Weight Mgt (Other Care) Height: 6 ft 2 in Weight:: 204 lb 8 oz BMI: 26.2 Core - Initial Assessment Visit Date of Eval: 04/21/23 Session #:: 18 Medication Compliance Preventative Medication(s):: Aspirin, Statin/lipid and Beta lam H/O mental health issues: depression, anxiety, or addiction?: No Doesn?t believe in the benefits of treatment?: No Believes medications are unnecessary or harmful?: No Has a concern about medication side effects?: No Expresses concern over the cost of medications?: No Outcomes/Goals: Verbalizes medications,desired effect & common side effects @ DC, Pt self-reports following medication regimen, Keeps card in wallet w/medications listed by DC and Other additional outcome/goals: Interventions/plans: Instruct on medication effects & side effects, Review medication list w/patient every two weeks, Instruct importance of taking meds as ordered & assist problem solving and Other additional Tobacco Use Tobacco Use: Non-smoker Hypertension Resting Blood Pressure:: 120/70 [place] [employer] Hypertension Guidelines Peak Exercise Blood Pressure:: 120/76 Outcomes/Goals: Able to verbalize/achieve optimal blood pressure <130/80, Incorporates diet changes & exercise for blood pressure control by DC and Other additional outcomes/goals Interventions/plan: Instruct on optimal blood pressure, hypertension & medications, Instruct on effects of sodium, alcohol, stress, exercise &hypertension and Other additional plan/interventions Tobacco Cessation Referral Smoking Cessation Referral:: No Individual Education/Counseling:: No Education Schedule Given:: Yes Psychosocial - Initial Assess Target Goals Target Goals Patient Health Questionnaire PHQ-9 Screening 60-Day Re-eval Assessment: 1. Little interest or pleasure in doing things: Not at all 2. Feeling down, depressed, or hopeless: Not at all 3. Trouble falling or staying asleep, or sleeping too much: Not at all 4. Feeling tired or having little energy: Not at all 5. Poor appetite or overeating: Not at all 6. Feeling bad about yourself -- or that you are a failure or have let yourself or your family down: Not at all 7. Trouble concentrating on things, such as reading the newspaper or watching television: Not at all 8. Moving or speaking so slowly that other people could have noticed. Or the opposite - being so fidgety or restless that you have been moving around a lot more than usual: Not at all 9. Thoughts that you would be better off , or of hurting yourself in some way: Not at all How difficult have these problems made it for you to do your work, take care of things at home, or get along with other people?: Not difficult at all Total Score: 0 Self-Efficacy 6-Item Scale 60-Day Re-eval Assessment: We would like to know how confident you are in doing certain activities. Please select your confidence level for: Fatigue Select Number: 10 Physical Discomfort or Pain Select Number: 9 Emotional Distress Select Number: 9 Other Symptoms or Health Problems Select Number: 9 Different Tasks and Activities Select Number: 9 Medication Select Number: 9 Total Score:: 9 Nutrition Survey Nutrition Survey Instructions Scoring Instructions Exercise - 60-day Assessment Visit Date of Eval: 04/21/23 Session #:: 18 Physician Prescribed Exercise Modalities: Treadmill, Rower and Airdyne Frequency: 3x/week for 12 weeks [36 sessions] Intensity: 60-80% of age predicted maximum heart rate reserve Duration: 30 - 45 minutes Current METSs:: 7 Target Heart Rate:: 90-121 Current RPE:: 11-12 Maximum Excercise HR:: 126 Resting Blood Pressure: 120/70 Maximum Exercise Blood Pressure: 120/76 EKG Type: NSR to ST with rare pac, rare to occas pvc Outcomes & Goals Goals:: Verbalizes understanding of THR, RPE & goal METS by session 6, Documents in home exercise log/reports 30 min aerobic 5 day/wk by DC, Demonstrates accurate pulse taking by DC and Other additional outcome/goals: see below Intervention & Plan Exercise Program Goals: Instruct on personal THR & RPE, Instruct on MET level & personal MET goal, Show patient to take own pulse /validate performance until accurate, Instruct on home exercise and Other additional plan/int 30-day Reassessments 30 day Reassessments:: Progressing Reassessment Notes & Comments:: THR adjusted and explained Physical Activity Home Exercise Physical Activity - Home Exercise: Safe Exercise, Warm-up, Self-monitoring, Cool-Down, Home Exercise > 30 min Daily and Sitting Time <3 hours/daily Outcomes & Goals Outcomes/Goals: Demonstrates correct Warm-up/exercise Cool-Down (S3) if = 2.5 METs, Verbalizes symptoms of exercise intolerance by Session 3 (S3), Demonstrate safe equipment use (S3) & follows exercise prescrition (6) and Other: See below Intervention & Plan Plan/Intervention: Instruct warm-up & cool-down if exercising at > 2 METs, Instruct on symptoms of exercise intolerance & actions to take, Instruct & monitor on saf, Assess intial functional capacity & safety risk and Other See below 30-day Reassessments 30 day Reassessments:: Progressing Reassessment Notes & Comments:: cool down encouraged Nutrition - 30-Day Assessment Weight Mgt (Other Care) Height: 6 ft 2 in Weight:: 204 lb 8 oz BMI: 26.2 Nutrition - 60-Day Assessment Program Goals Nutrition Program Goals Patient has diagnosis of Hyperlipidemia (ICD E78)?: No Visit Date of Eval: 04/21/23 Session #:: 18 Cholesterol/Lipids (Other Core Measures) Determine presence & major risk factors that modify LDL goal: Cigarette smoking, Hypertension or hypertensive medication, Low HDL cholesterol <40 mg/dL*, Family history of premature CHD in Male < 55 years: female <65 yearsFa and Age men > 45 years; women >/= 55 years Outcomes/Goals: Pt IDs own risk factors & lifestyle modifications by Session 10, Verbalizes symptoms of angina & response by session 3., Pt independently manages and Other Additional Outcomes/Goals: Intervention/Plan: Advocate for lipid panel cholesterol medication if applicable, Instruct on personal lipid levels & lipid goals/NCEP guidelines, Instruct on cholesterol and Other additional plan/int 30-day Reassessments:: Progressing Reassessment Notes & Comments:: pt to attend nutrition class Diabetes (Other Core Measures) Diabetes Type: Not Applicable Weight Mgt (Other Care) Height: 6 ft 2 in Weight:: 204 lb 8 oz BMI: 26.2 Diagnosis Overweight/Obesity BMI> 30% ICD-10 E66: No Diagnosis High BMI/Morbid Obesity BMI> 35% ICD-10 Z68: No Outcomes/Goals: Pt sets, maintains & shows weight loss goal & trend during rehab and Other additional outcomes/goals Intervention/Plan: Instruct on ideal BMI & set weight loss goal w/patient, Assist pt to ID & incorporate diet changes for weight loss by S9, Refer to Structured Weight Loss program as appropriate, Encourage goal of using 250-300dcal per session for weight loss and Other additional plan/interventions 30 day Reassessments:: Progressing Reassessment Notes & Comments:: pt to attend nutrition class Healthy Eating Habits Will attend diet classes:: Yes Outcomes/Goals:: Consume diet rich in vegs,fruits,whole grain/high fiber,fish,lean meat, Limit sat/trans fats,cholesterol & added salts & sugars and Other additional outcome/goals: 30-day Reassessments:: Progressing Reassessment Notes & Comments:: pt to attend nutrition class Education Gave educational materials for:: Signs & symptoms of hypoglycemia, Signs & symptoms of hyperglycemia, Relate diabetes to coronary artery disease and Healthy eating Core - Final Assessment Hypertension Resting Blood Pressure:: 120/70 [place] [employer] Hypertension Guidelines Core - 60-Day Assessment Hypertension Resting Blood Pressure:: 120/70 [place] [employer] Hypertension Guidelines Psychosocial - 30-Day Assess Target Goals Target Goals Outcomes/Goals: See list Psychosocial Outcomes/Goals:: ID's personal stressors & 2 strategies to manage stress by discharge and Other Additional outcome/goals: Psychosocial - 60-Day Assess VIsit Date of Evvickie: 04/21/23 Session #:: 18 History of previous Mental disease:: No Target Goals Target Goals Outcomes/Goals: See list Psychosocial Outcomes/Goals:: ID's personal stressors & 2 strategies to manage stress by discharge and Other Additional outcome/goals: Intervention/Plan: See List Interventions/Plan:: Assess stressors,coping strategies & signs of derpression on admission, Instruct/assist pt to develop coping & personal stress Mgt strategies, Refer to Behavioral Health if appropriate, Refer to Physician if appropriate, Instruct patient to recognize signs & symptoms of depression, Instruct patient to recog and Other additional plan/intervention 30-day Reassessments: 30 day Reassessments:: Met Psychosocial - 90-Day Assess Target Goals Target Goals Psychosocial - Final Assessmen Target Goals Target Goals Nutrition - 90-Day Assessment Weight Mgt (Other Care) Height: 6 ft 2 in Weight:: 204 lb 8 oz BMI: 26.2 Nutrition - Final Assessment Weight Mgt (Other Care) Height: 6 ft 2 in Weight:: 204 lb 8 oz BMI: 26.2
[2023-04-21 07:40] VITALS: BP 120/70; BP 120/76; BMI 26.2
== END 2023-05-04 23:59 ==
LOC: CR 09:15
PROVIDERS: PCP Internal Medicine; Referring Provider Internal Medicine Cardiovascular Disease; Visit Provider Internal Medicine Cardiovascular Disease
DX: I21.4 Non-ST elevation (NSTEMI) myocardial infarction (principal); R07.9 Chest pain, unspecified; Z86.79 Personal history of other diseases of the circulatory system
CPT/HCPCS: 93798

== ENCOUNTER 2023-05-31 09:30 | Outpatient (RCR) | payer MEDICARE, SELFPAY ==
[2023-04-21 07:40] VITALS: BMI 26.2
[2023-05-05 00:08] VITALS: BP 120/70; BP 120/76; BP 120/82
--- NOTE | 2023-05-22 08:15 | CR.ITP_ITS ---
Nutrition - Initial Assessment Weight Mgt (Other Care) Height: 6 ft 2 in Weight:: 202 lb BMI: 25.9 Psychosocial - Initial Assess Target Goals Target Goals Patient Health Questionnaire PHQ-9 Screening 90-Day Re-eval Assessment: 1. Little interest or pleasure in doing things: Not at all 2. Feeling down, depressed, or hopeless: Not at all 3. Trouble falling or staying asleep, or sleeping too much: Not at all 4. Feeling tired or having little energy: Not at all 5. Poor appetite or overeating: Not at all 6. Feeling bad about yourself -- or that you are a failure or have let yourself or your family down: Not at all 7. Trouble concentrating on things, such as reading the newspaper or watching television: Not at all 8. Moving or speaking so slowly that other people could have noticed. Or the opposite - being so fidgety or restless that you have been moving around a lot more than usual: Not at all 9. Thoughts that you would be better off , or of hurting yourself in some way: Not at all How difficult have these problems made it for you to do your work, take care of things at home, or get along with other people?: Not difficult at all Total Score: 0 Self-Efficacy 6-Item Scale 90-Day Re-eval Assessment: We would like to know how confident you are in doing certain activities. Please select your confidence level for: Fatigue Select Number: 10 Physical Discomfort or Pain Select Number: 9 Emotional Distress Select Number: 9 Other Symptoms or Health Problems Select Number: 9 Different Tasks and Activities Select Number: 9 Medication Select Number: 9 Total Score:: 9 Nutrition Survey Nutrition Survey Instructions Scoring Instructions Exercise - 90-day Assessment Visit Date of Eval: 05/22/23 Session #:: 31 Physician Prescribed Exercise Modalities: Treadmill, Rower and Airdyne Frequency: 3x/week for 12 weeks [36 sessions] Intensity: 60-80% of age predicted maximum heart rate reserve Duration: 30 - 45 minutes Current METSs:: 7.7 Target Heart Rate:: 90-128 Current RPE:: 11.5-12 Maximum Excercise HR:: 130 Resting Blood Pressure: 120/70 Maximum Exercise Blood Pressure: 132/74 EKG Type: NSR to STw/ rare pac, rare pvc. Slight ST depression. Denies SOB Outcomes & Goals Goals:: Verbalizes understanding of THR, RPE & goal METS by session 6, Documents in home exercise log/reports 30 min aerobic 5 day/wk by DC, Demonstrates accurate pulse taking by DC and Other additional outcome/goals: see below Intervention & Plan Exercise Program Goals: Instruct on personal THR & RPE, Instruct on MET level & personal MET goal, Show patient to take own pulse /validate performance until accurate, Instruct on home exercise and Other additional plan/int 30-day Reassessments 30 day Reassessments:: Met Physical Activity Home Exercise Physical Activity - Home Exercise: Safe Exercise, Warm-up, Self-monitoring, Cool-Down, Home Exercise > 30 min Daily and Sitting Time <3 hours/daily Outcomes & Goals Outcomes/Goals: Demonstrates correct Warm-up/exercise Cool-Down (S3) if = 2.5 METs, Verbalizes symptoms of exercise intolerance by Session 3 (S3), Demonstrate safe equipment use (S3) & follows exercise prescrition (6) and Other: See below Intervention & Plan Plan/Intervention: Instruct warm-up & cool-down if exercising at > 2 METs, Instruct on symptoms of exercise intolerance & actions to take, Instruct & monitor on saf, Assess intial functional capacity & safety risk and Other See below 30-day Reassessments 30 day Reassessments:: Met Nutrition - 30-Day Assessment Weight Mgt (Other Care) Height: 6 ft 2 in Weight:: 202 lb BMI: 25.9 Nutrition - 60-Day Assessment Weight Mgt (Other Care) Height: 6 ft 2 in Weight:: 202 lb BMI: 25.9 Core - 90 Day Assessment Visit Date of Eval: 05/22/23 Session #:: 31 Medication Compliance Preventative Medication(s):: Aspirin, Statin/lipid and Beta lam H/O mental health issues: depression, anxiety, or addiction?: No Doesn?t believe in the benefits of treatment?: No Believes medications are unnecessary or harmful?: No Has a concern about medication side effects?: No Expresses concern over the cost of medications?: No Outcomes/Goals: Verbalizes medications,desired effect & common side effects @ DC, Pt self-reports following medication regimen, Keeps card in wallet w/medications listed by DC and Other additional outcome/goals: Interventions/plans: Instruct on medication effects & side effects, Review medication list w/patient every two weeks, Instruct importance of taking meds as ordered & assist problem solving and Other additional 30-day Reassessments:: Met Tobacco Use Tobacco Use: Non-smoker Hypertension Resting Blood Pressure:: 120/70 [place] [employer] Hypertension Guidelines Peak Exercise Blood Pressure:: 132/74 Outcomes/Goals: Able to verbalize/achieve optimal blood pressure <130/80, Incorporates diet changes & exercise for blood pressure control by DC and Other additional outcomes/goals Interventions/plan: Instruct on optimal blood pressure, hypertension & medications, Instruct on effects of sodium, alcohol, stress, exercise &hypertension and Other additional plan/interventions 30 day Reassessments:: Met Tobacco Cessation Referral Smoking Cessation Referral:: No Individual Education/Counseling:: No Education Schedule Given:: Yes Psychosocial - 30-Day Assess Target Goals Target Goals Psychosocial - 60-Day Assess Target Goals Target Goals Psychosocial - 90-Day Assess VIsit Date of Eval: 05/22/23 Session #:: 31 History of previous Mental disease:: No Target Goals Target Goals Outcomes/Goals: See list Psychosocial Outcomes/Goals:: ID's personal stressors & 2 strategies to manage stress by discharge and Other Additional outcome/goals: Intervention/Plan: See List Interventions/Plan:: Assess stressors,coping strategies & signs of derpression on admission, Instruct/assist pt to develop coping & personal stress Mgt strategies, Refer to Behavioral Health if appropriate, Refer to Physician if appropriate, Instruct patient to recognize signs & symptoms of depression, Instruct patient to recog and Other additional plan/intervention 30-day Reassessments: 30 day Reassessments:: Met Psychosocial - Final Assessmen Target Goals Target Goals Nutrition - 90-Day Assessment Program Goals Nutrition Program Goals Patient has diagnosis of Hyperlipidemia (ICD E78)?: No Visit Date of Eval: 05/22/23 Session #:: 31 Cholesterol/Lipids (Other Core Measures) Determine presence & major risk factors that modify LDL goal: Cigarette smoking, Hypertension or hypertensive medication, Low HDL cholesterol <40 mg/dL*, Family history of premature CHD in Male < 55 years: female <65 yearsFa and Age men > 45 years; women >/= 55 years Outcomes/Goals: Pt IDs own risk factors & lifestyle modifications by Session 10, Verbalizes symptoms of angina & response by session 3., Pt independently manages and Other Additional Outcomes/Goals: Intervention/Plan: Advocate for lipid panel cholesterol medication if applicable, Instruct on personal lipid levels & lipid goals/NCEP guidelines, Instruct on cholesterol and Other additional plan/int 30-day Reassessments:: Met Diabetes (Other Core Measures) Diabetes Type: Not Applicable Weight Mgt (Other Care) Height: 6 ft 2 in Weight:: 202 lb BMI: 25.9 Diagnosis Overweight/Obesity BMI> 30% ICD-10 E66: No Diagnosis High BMI/Morbid Obesity BMI> 35% ICD-10 Z68: No Outcomes/Goals: Pt sets, maintains & shows weight loss goal & trend during rehab and Other additional outcomes/goals Intervention/Plan: Instruct on ideal BMI & set weight loss goal w/patient, Assist pt to ID & incorporate diet changes for weight loss by S9, Refer to Structured Weight Loss program as appropriate, Encourage goal of using 250- 300dcal per session for weight loss and Other additional plan/interventions 30 day Reassessments:: Met Healthy Eating Habits Will attend diet classes:: Yes Outcomes/Goals:: Consume diet rich in vegs,fruits,whole grain/high fiber,fish,lean meat, Limit sat/trans fats,cholesterol & added salts & sugars and Other additional outcome/goals: Intervention/Plan:: Assess current eating habits and Other Additional plan/interventions 30-day Reassessments:: Met Education Gave educational materials for:: Signs & symptoms of hypoglycemia, Signs & symptoms of hyperglycemia, Relate diabetes to coronary artery disease and Healthy eating Nutrition - Final Assessment Weight Mgt (Other Care) Height: 6 ft 2 in Weight:: 202 lb BMI: 25.9
[2023-05-22 08:26] VITALS: BP 120/70; BMI 25.9
== END 2023-06-04 23:59 ==
LOC: CR 09:30
PROVIDERS: PCP Internal Medicine; Referring Provider Internal Medicine Cardiovascular Disease; Visit Provider Internal Medicine Cardiovascular Disease
DX: I21.4 Non-ST elevation (NSTEMI) myocardial infarction (principal); R07.9 Chest pain, unspecified; Z86.79 Personal history of other diseases of the circulatory system
CPT/HCPCS: 93798

== ENCOUNTER → 2023-06-13 | Outpatient (CLI) | payer MEDICARE, SELFPAY ==
[2023-05-22 08:26] VITALS: BMI 25.9
--- NOTE | 2023-06-13 07:38 | CDU_ITS ---
Reason For Study: Hx CAD Rt. Velocities/BP Lt. Velocities/BP Prox CCA 86.3/19.2 cm/sec. Prox CCA 103.6/30 cm/sec. Mid CCA 80.6/22 cm/sec. Mid CCA 89.4/26.7 cm/sec. Dist CCA 80.6/23 cm/sec. Dist CCA 97.1/28.9 cm/sec. Prox ICA 70.4/22.5 cm/sec. Prox ICA 121.9/33.5 cm/sec. Mid ICA 82.6/24.9 cm/sec. Mid ICA 101.1/29.8 cm/sec. Dist ICA 96.1/33.5 cm/sec. Dist ICA 85.1/33.5 cm/sec. Rt. ICA/CCA = 1.19. Lt. ICA/CCA = 1.36. Prox ECA 117/20 cm/sec. Prox ECA 130.2/26.1 cm/sec. Rt. Vert. 45.4/16.8 cm/sec. Lt. Vert. 50.4/14.5 cm/sec. Right Extracranial There is homogeneous, smooth atherosclerotic plaque noted in the right common carotid artery. There is heterogeneous, irregular atherosclerotic plaque noted in the right internal carotid artery. There is heterogeneous, irregular atherosclerotic plaque noted in the right external carotid artery. Antegrade flow is noted in the right vertebral artery. Left Extracranial There is homogeneous, smooth atherosclerotic plaque noted in the left common carotid artery. There is heterogeneous, irregular atherosclerotic plaque noted in the left internal carotid artery. There is intimal thickening but no significant atherosclerotic plaque noted in the left external carotid artery. Antegrade flow is noted in the left vertebral artery. Procedure This is a Carotid Duplex examination using B-mode, color flow and specral Doppler. Carotid Duplex [id number]. Exam performed in department. VL/Carotid Duplex Ultrasound Interpretation Summary Mild (<50%) stenosis right extracranial internal carotid. Mild (<50%) stenosis left extracranial internal carotid. Patent and antegrade vertebrals bilaterally. Ordering Physician: Mirza Genao Referring Physician: Sherif Wang M.D. Performed By: Kristen Sainz RVT
== END | disposition home or self-care (01) ==
LOC: CVS 07:38
PROVIDERS: PCP Internal Medicine; Referring Provider Nurse Practitioner Family; Visit Provider Nurse Practitioner Family
DX: I65.22 Occlusion and stenosis of left carotid artery (principal); I25.10 Atherosclerotic heart disease of native coronary artery without angina pectoris; Z86.39 Personal history of other endocrine, nutritional and metabolic disease
CPT/HCPCS: 93880

== ENCOUNTER → 2023-09-01 | Outpatient (CLI) | payer MEDICARE, SELFPAY ==
[2023-05-22 08:26] VITALS: BMI 25.9
[2023-09-01 07:58] LABS: AST(SGOT) 18 U/L (15-37); Alanine Aminotransfer ALT/SGPT 28 U/L (16-61); Alkaline Phosphatase 80 U/L (45-117); Cholesterol 149 mg/dL (200); Globulin 4.1 g/dL (2.2-4.2); High Density Lipoprotein 43 mg/dL; Protein, Total 8.1 g/dL (6.4-8.2); Triglycerides 86 mg/dL; Very Low Density Lipoprotein 17 mg/dL (5-40)
== END | disposition home or self-care (01) ==
LOC: LAB 07:02
PROVIDERS: PCP Internal Medicine; Referring Provider Nurse Practitioner Family; Visit Provider Nurse Practitioner Family
DX: I25.10 Atherosclerotic heart disease of native coronary artery without angina pectoris (principal); Z86.39 Personal history of other endocrine, nutritional and metabolic disease
CPT/HCPCS: 36415; 80061; 80076

== ENCOUNTER → 2024-03-04 | Outpatient (CLI) | payer MEDICARE, SELFPAY ==
[2023-05-22 08:26] VITALS: BMI 25.9
[2024-03-04 09:03] LABS: AST(SGOT) 28 U/L (15-37); Alanine Aminotransfer ALT/SGPT 37 U/L (16-61); Albumin, Serum 3.8 g/dL (3.2-5.0); Alkaline Phosphatase 75 U/L (45-117); Bilirubin, Direct 0.22 mg/dL (0.00-0.30); Cholesterol 146 mg/dL (200); Globulin 4.1 g/dL (2.2-4.2); High Density Lipoprotein 45 mg/dL; Protein, Total 7.9 g/dL (6.4-8.2); Triglycerides 98 mg/dL; Very Low Density Lipoprotein 20 mg/dL (5-40)
== END | disposition home or self-care (01) ==
LOC: LAB 07:50
PROVIDERS: PCP Internal Medicine; Referring Provider Nurse Practitioner Family; Visit Provider Nurse Practitioner Family
DX: E78.00 Pure hypercholesterolemia, unspecified (principal); Z86.39 Personal history of other endocrine, nutritional and metabolic disease
CPT/HCPCS: 36415; 80061; 80076

== ENCOUNTER → 2024-09-03 | Outpatient (CLI) | payer MEDICARE, SELFPAY ==
[2023-05-22 08:26] VITALS: BMI 25.9
[2024-09-03 09:24] LABS: AST(SGOT) 26 U/L (<=37); Alanine Aminotransfer ALT/SGPT 24 U/L (<=46); Albumin, Serum 4.2 g/dL (3.4-4.8); Alkaline Phosphatase 70 U/L (40-129); Bilirubin, Direct 0.30 mg/dL (0.00-0.30); Cholesterol 135 mg/dL (<=200); Globulin 3.1 g/dL (2.2-4.2); Low Density Lipoprotein Calc. 77 mg/dL; Triglycerides 113 mg/dL; Very Low Density Lipoprotein 23 mg/dL (5-40); cholesterol:hdl ratio screen 3.85
== END | disposition home or self-care (01) ==
LOC: LAB 07:26
PROVIDERS: PCP Internal Medicine; Referring Provider Nurse Practitioner Family; Visit Provider Nurse Practitioner Family
DX: E78.00 Pure hypercholesterolemia, unspecified (principal); Z86.39 Personal history of other endocrine, nutritional and metabolic disease
CPT/HCPCS: 36415; 80061; 80076